=== PATIENT | male | born 1930 | race Caucasian/White ===

== ENCOUNTER 2017-06-01 07:21 | Inpatient (IN) | payer MEDICARE, OTHER ==
[~2017-06-01] VITALS: Ht 167.6 cm; Wt 59.1 kg
[2017-06-01] VITALS (11 sets, daily range): BP systolic 98–106; BP diastolic 48–57; PULSE 76–94; RESP 19–38; TEMP 100.4; Ht 167.6 cm; Wt 59.1 kg
[~2017-06-01 07:21] MED LIST: ASPI-535 PO
[2017-06-01] MEDS ORDERED: ALBUTEROL 0.5% (NEB) 2.5 MG/0.5 ML AMP INH STA (07:26)
[2017-06-01] MEDS ORDERED: ACETAMINOPHEN 500 MG TAB PO STA (07:26)
[2017-06-01] MEDS ORDERED: CEFEPIME 2GM/50 ML (PMX) 50 ML IVPB STA (07:26)
[2017-06-01] MEDS ORDERED: VANCOMYCIN 1 GM (PMX) 250 ML IVPB STA (07:26)
[2017-06-01] MEDS ORDERED: SODIUM CHLORIDE 0.9% 1L BAG IV* STA (07:26)
--- NOTE | 2017-06-01 07:52 | ERA ---
ER Documentation Chief Complaint Date/Time DATE: 06/01/17 TIME: 07:47 Chief Complaint BROUGHT IN VIA EMS FROM HOME DUE TO SHORTNESS OF BREATH AND FEVER HPI 86-year-old male who presents via EMS with shortness of breath. There is very limited history despite the use of an in person community service organization director. Family members are also at bedside and are very limited historians. They describe a possible history of heart attack, possible history of CHF. Over the last 3 days the patient has had generalized weakness, confusion and fever. He has productive cough of yellowish sputum. EMS reports the patient was significantly short of breath and hypoxic to low 80s responsive to breathing treatment. On examination the patient is alert and oriented to person but unable to answer further questions. ROS All systems reviewed and are negative except as per history of present illness. Medications Home Meds Reported Medications Pramipexole* (Pramipexole*) 0.125 Mg Tablet, 0.125 MG PO HS, TAB 06/01/17 Esomeprazole Mag Trihydrate (Nexium) 40 Mg Capsule.dr, 40 MG PO DAILY, #30 CAP 06/01/17 Clopidogrel Bisulfate (Clopidogrel) 75 Mg Tablet, 75 MG PO DAILY, #30 TAB 06/01/17 Bisoprolol Fumarate* (Bisoprolol Fumarate*) 10 Mg Tablet, 10 MG PO DAILY, TAB 06/01/17 Valsartan* (Diovan*) 320 Mg Tablet, 320 MG PO DAILY, TAB 06/01/17 Furosemide* (Lasix*) 40 Mg Tablet, 40 MG PO DAILY, TAB 06/01/17 Tamsulosin Hcl* (Flomax*) 0.4 Mg Cap.er.24h, 0.4 MG PO HS, CAP 06/01/17 Atorvastatin* (Atorvastatin*) 40 Mg Tablet, 40 MG PO QHS, #30 TAB 06/01/17 Potassium Chloride* (K-Dur*) 10 Meq Tab.prt.sr, 10 MEQ PO DAILY, TAB 06/01/17 Dutasteride* (Avodart*) 0.5 Mg Capsule, 0.5 MG PO DAILY, CAP 06/01/17 Silver Sulfadiazine* (Silvadene*) 1% - 20 Gm Cream.gm., 1 APPLIC TOP DAILY, #1 TUB 06/01/17 Rivastigmine* Patch (Exelon* Patch) 4.6 Mg/24 Hr Patch.td24, 1 PATCH TD DAILY, PATCH 06/01/17 Tiotropium [place]* (Spiriva*) 18 Mcg Cap.w.dev, 1 CAP INHALATION DAILY, #30 CAP 06/01/17 Aspirin Ec (Aspir 81) 81 Mg Tablet.dr, 81 MG PO DAILY 06/02/12 Allergies Allergies: Coded Allergies: No Known Allergy (Unverified , 06/01/17) PMhx/Soc History of Surgery: No Anesthesia Reaction: No Hx Neurological Disorder: No Hx Respiratory Disorders: No Hx Cardiac Disorders: No Hx Psychiatric Problems: No Hx Miscellaneous Medical Probl: No (PT DENIES ALL MEDICAL/SURG HX) Hx Alcohol Use: No Hx Substance Use: No Hx Tobacco Use: Yes (PACK A DAY ) Smoking Status: Current every day smoker FmHx Family History: coronary disease, No diabetes Physical Exam Vitals Vital Signs Date Time Temp Pulse Resp B/P Pulse Ox O2 Delivery O2 Flow Rate FiO2 06/01/17 09:17 100.4 107 16 100/64 98 6.0 06/01/17 07:45 6 06/01/17 07:39 102 22 98 Simple Mask 6.0 06/01/17 07:27 6.0 06/01/17 07:27 102.5 100 13 137/85 98 Physical Exam General: Elderly male with slight increased work of breathing Head: Normocephalic, atraumatic Eyes: Pupils equally reactive, EOM intact ENT: Moist mucous membranes Neck: Supple, no lymphadenopathy, no JVD Respiratory: Increased work of breathing with slight retractions, rales the bases bilaterally, decreased breath sounds to the left base, decreased aeration diffusely cardiovascular: RRR, no murmurs, rubs, or gallops Abdominal: Soft, non-tender, non-distended, no peritoneal signs : Deferred MSK: No significant pitting edema, no unilateral swelling, 4/5 strength diffusely Neurologic: Alert and oriented to person alone, this appears to be a deficit compared to baseline, moving all extremities, no focal weakness, no cerebellar signs Skin: No rash Psych: Normal mood Result Diagram: 06/01/17 0720 06/01/17 0720 Results 24 hrs Laboratory Tests Test 06/01/17 07:20 White Blood Count 10.810^3/ul Red Blood Count 5.2510^6/ul Hemoglobin 15.3g/dl Hematocrit 47.0% Mean Corpuscular Volume 89.5fl Mean Corpuscular Hemoglobin 29.1pg Mean Corpuscular Hemoglobin Concent 32.6g/dl Red Cell Distribution Width 12.4% Platelet Count 76123^3/UL Mean Platelet Volume 10.9fl Neutrophils % 86.5% Lymphocytes % 8.2% Monocytes % 4.6% Eosinophils % 0.0% Basophils % 0.2% Nucleated Red Blood Cells % 0.0/100WBC Neutrophils # 9.310^3/ul Lymphocytes # 0.910^3/ul Monocytes # 0.510^3/ul Eosinophils # 0.010^3/ul Basophils # 0.010^3/ul Nucleated Red Blood Cells # 0.010^3/ul Prothrombin Time 15.4Sec Prothrombin Time Ratio 1.2 INR International Normalized Ratio 1.21 Activated Partial Thromboplast Time 22.5Sec Sodium Level 143mmol/L Potassium Level 5.2mmol/L Chloride Level 103mmol/L Carbon Dioxide Level 31mmol/L Anion Gap 14 Blood Urea Nitrogen 46mg/dl Creatinine 2.39mg/dl Glucose Level 128mg/dl Lactic Acid Level 2.2mmol/L Calcium Level 9.4mg/dl Total Bilirubin 1.1mg/dl Direct Bilirubin 0.00mg/dl Indirect Bilirubin 1.1mg/dl Aspartate Amino Transf (AST/SGOT) 25IU/L Alanine Aminotransferase (ALT/SGPT) 19IU/L Alkaline Phosphatase 59IU/L Troponin I 0.120ng/ml B-Type Natriuretic Peptide 15374YU/ML Total Protein 7.6g/dl Albumin 3.9g/dl Globulin 3.70g/dl Albumin/Globulin Ratio 1.05 Current Medications Medications (Trade) Dose Ordered Sig/Kim Route PRN Reason Start Time Stop Time Status Last Admin Dose Admin Sodium Chloride 2170 ml 2,170 ml BOLUS OVER 2 HOURS STAT IV* 06/01/17 07:26 06/01/17 07:33 DC 06/01/17 07:35 Vancomycin HCl 250 ml @ 125 mls/hr ONCE STAT IVPB 06/01/17 07:26 06/01/17 09:25 DC 06/01/17 08:48 Cefepime HCl (Maxipime 2gm/50 ml (Pmx)) 50 ml @ 100 mls/hr ONCE STAT IVPB 06/01/17 07:26 06/01/17 07:55 DC 06/01/17 07:52 Acetaminophen (Tylenol Tab) 1,000 mg ONCE STAT PO 06/01/17 07:26 06/01/17 07:33 DC 06/01/17 07:44 Albuterol (Proventil 0.5% (Neb)) 10 mg ONCE STAT INH 06/01/17 07:26 06/01/17 07:33 DC 06/01/17 07:38 Lorazepam (Ativan) 0.5 mg ONCE ONCE IV 06/01/17 09:00 06/01/17 09:01 DC 06/01/17 09:16 Ondansetron HCl (Zofran Inj) 4 mg ER BRIDGE PRN IV NAUSEA AND/OR VOMITING 06/01/17 09:30 06/02/17 09:29 Acetaminophen (Tylenol Tab) 650 mg ER BRIDGE PRN PO MILD PAIN/FEVER 06/01/17 09:30 06/02/17 09:29 Procedures/MDM EKG, MONITORS, & DIAGNOSTIC IMAGING: EKG: I reviewed and interpreted a 12-lead EKG. Rhythm: Normal sinus rhythm Ectopy: None Intervals: No abnormalities ST segments: J-point elevations in V2 3 and 4 with Q waves consistent with old infarct T waves: No contiguous inversions Chest x-ray: Chest x-ray: I reviewed and interpreted a 1 view of the chest Mediastinum: No enlargement Cardiac silhouette:cardiomegaly Airspace: Right lower lobe pneumonia Bones: No evidence of fracture LAB INTERPRETATION: White count of 10, worsening renal function of 2.39 with baseline around 1.4, borderline hyperkalemia 5.2, lactic acid elevated at 2.2, BNP elevation of 32, 000, borderline troponin of 0.120 MEDICAL DECISION MAKING: The patient presents with 3 days of generalized malaise weakness confusion fever and cough. His clinical exam and presentation are very concerning and consistent with likely pneumonia. Patient is reported to have hospitalization within the last 90 days therefore this is consistent with likely healthcare associated pneumonia. The patient has very limited history and is a very poor historian including his family. The patient may have a history of heart failure though clinically this is not consistent with heart failure, no JVD, no lower extremity swelling. Patient's initial EKG was read by the machine as an acute TN. However, this appears to be a chronic issue. The patient is not having chest pain. Dr. Murphy , the interventionalist on-call was notified and was kind enough to come to the patient's bedside. He agrees this is not consistent with an ST elevation myocardial infarction. He recommends symptom control, treatment of pneumonia and echocardiogram. He will follow. ER COURSE: The patient was written for 30 cc/kg of normal saline however gentle resuscitation will be observed given his history of a reported history of CHF. Vancomycin and cefepime provided for healthcare associated pneumonia, given after blood cultures. Sepsis screening was initiated. Antipyretics provided. Breathing treatments provided. The patient has required some anxiolysis with 0.5 mg of Ativan. His blood pressure has trended down however mean arterial pressure is greater than 65. The patient's tachycardia is stabilizing and his fever is improving with antipyretics. The patient is a clear pneumonia on chest x-ray. He does have some evidence of mild demand ischemia with a borderline troponin. The patient' s BNP is elevated. This will require gentle fluid and persistent monitoring. The patient does require technically to 30 cc/kg saline but we will need to go slowly given the patient's likely CHF and poor cardiac contractility. An echo has been ordered and is pending. I kept the patient and/or family informed of laboratory and diagnostic imaging results throughout the emergency room course. DISPOSITION PLAN: Telemetry admission CONSULTATION: Accepting care team and consultations: I discussed the current laboratory data, diagnostic imaging and emergency care provided. Admitting team: Dr. Mcadams Admitting team indication: Insurance directed Consulting services: Interventional cardiology, Dr. Murphy Sepsis Documentation: Patient's infectious symptoms have not stabilized and the patient is at risk of rapid decompensation. The patient will be admitted for careful hydration, antibiotic therapy, and infectious source control. SEVERE SEPSIS CRITERIA: Infectious source: Healthcare associated pneumonia End organ damage indicated by: [Lactate > 2.0 mmol/L) Acute Resp Failure (sat < 92% w/o oxygen) SEPSIS MANAGEMENT Time of recognition of severe sepsis/septic shock: Upon arrival 3 HOUR BUNDLE Blood cultures x 2 before broad-spectrum antibiotics: Yes 30 ml/kg NS bolus pending completion, gentle bolus given patient's volume overload Initial lactate 2.2 Repeat lactate pending repeat SEPTIC SHOCK ASSESSMENT: No lactic acid > 4.0 No persistent hypotension (SBP < 90 or 40 mmHg drop, MAP < 65) despite 30 mL/kg IV fluid bolus VOLUME REASSESSMENT FOR SEPTIC SHOCK: Reevaluation Time: 9:52 AM Temp 100.4, heart rate 107, respiratory rate 16, blood pressure 100/64, pulse ox 98% on 2 L Heart Regular rate & rhythm Lungs rhonchi bilaterally skin Warm & dry Cap Refill Less than 2 seconds Peripheral pulses Radially present PERSISTENT HYPOTENSION TREATMENT: Comfort care No Central line Not Required Vasopressor started Not required I considered further perfusion assessment with CVP measurement, SCVO2, bedside ultrasound volume assessment, passive leg raise, trial of further fluid bolus. And proceeded with 30 ml/kg fluid bolus of NSS, broad spectrum antbiotics, and admission. CRITICAL CARE Critical care time 35 minutes Emergent fluid management while maintaining close respiratory support. Provision of immediate and broad-spectrum antibiotic therapy. Simultaneous assessment for possible sources in order to direct targeted therapy. Consideration for invasive and chemical support to prevent cardiopulmonary collapse. Critical care time is independent of procedures performed. Departure Diagnosis: Primary Impression: Healthcare-associated pneumonia Additional Impressions: Severe sepsis Acute renal insufficiency History of CHF (congestive heart failure) Encephalopathy acute Condition: Stable RAVINDRA BOYER MD Jun 01, 2017 07:52
[2017-06-01] MEDS ORDERED: TIOT18CA INHALATION (07:57)
[2017-06-01] MEDS ORDERED: EXEL46P TD (07:58)
[2017-06-01] MEDS ORDERED: SILV20CR14 TOP (07:58)
[2017-06-01] MEDS ORDERED: DUTA0.5C PO (07:59)
[2017-06-01] MEDS ORDERED: TAMS-14 PO (08:00)
[2017-06-01] MEDS ORDERED: POTA10TA37 PO (08:00)
[2017-06-01] MEDS ORDERED: ATOR40TA68 PO (08:00)
[2017-06-01] MEDS ORDERED: BISO10TA16 PO (08:01)
[2017-06-01] MEDS ORDERED: FURO-109 PO (08:01)
[2017-06-01] MEDS ORDERED: VALS320T11 PO (08:01)
[2017-06-01] MEDS ORDERED: CLOP75TA27 PO (08:02)
[2017-06-01] MEDS ORDERED: PRAM0.12 PO (08:02)
[2017-06-01] MEDS ORDERED: ESOM40CA PO (08:02)
[2017-06-01 08:05] LABS: BASOPHILS % 0.2 % (0.0-2.0); HEMOGLOBIN 15.3 g/dl (14.0-18.0); LYMPHOCYTES # 0.9 10^3/ul (0.8-2.9); LYMPHOCYTES % 8.2 % (15.0-51.0); MEAN CORPUSCULAR HEMOGLOBIN 29.1 pg (29.0-33.0); MEAN CORPUSCULAR HGB CONC 32.6 g/dl (32.0-37.0); MEAN CORPUSCULAR VOLUME 89.5 fl (82.0-101.0); MEAN PLATELET VOLUME 10.9 fl (7.4-10.4); MONOCYTE # 0.5 10^3/ul (0.3-0.9); MONOCYTES % 4.6 % (0.0-11.0); NEUTROPHIL # 9.3 10^3/ul (1.6-7.5); NEUTROPHILS % 86.5 % (39.0-77.0); PLATELET COUNT 225 10^3/UL (140-415); POSITIVE DIFF @See below; RED BLOOD COUNT 5.25 10^6/ul (4.70-6.10); RED CELL DISTRIBUTION WIDTH 12.4 % (11.5-14.5); WHITE BLOOD COUNT 10.8 10^3/ul (4.8-10.8)
--- NOTE | 2017-06-01 08:08 | RADRPT ---
PROCEDURE: XR Chest. CLINICAL INDICATION: Sepsis . Dyspnea TECHNIQUE: Single frontal chest x-ray. COMPARISON: None. FINDINGS: Focal right lower lung consolidation or infiltrate is present. The left lung is clear. . Cardiomegal y with calcific atherosclerosis of the aorta is present.. Degenerative disk changes of the spine ar e present. . There is no evidence of pneumothorax.. IMPRESSION: Focal right lower lung consolidation or infiltrate. Cardiomegaly with calcific atherosclerosis of the aorta.. RPTAT: GG .Maximo Tam MD, MD Date Time Electronically viewed and signed by .Maximo Tam MD, MD on 06/01/2017 08:08 .L/
[2017-06-01 08:13] LABS: INR 1.21; PARTIAL THROMBOPLASTIN TIME 22.5 Sec (25.0-35.0); PROTIME 15.4 Sec (12.2-14.2); PT RATIO 1.2
[2017-06-01 08:16] LABS: ALBUMIN 3.9 g/dl (3.3-4.9); ALBUMIN/GLOBULIN RATIO 1.05; BILIRUBIN,INDIRECT 1.1 mg/dl (0-1.1); BILIRUBIN,TOTAL 1.1 mg/dl (0.2-1.3); CALCIUM 9.4 mg/dl (8.4-10.2); CREATININE 2.39 mg/dl (0.61-1.24); POTASSIUM 5.2 mmol/L (3.5-5.1); TOTAL PROTEIN 7.6 g/dl (6.1-8.1)
[2017-06-01 08:27] LABS: TROPONIN-I 0.12 ng/ml (0.00-0.12)
[2017-06-01] MEDS ORDERED: LORAZEPAM 2 MG INJ IV ONE (09:00)
--- NOTE | 2017-06-01 09:11 | CONS ---
Date/Time of Note Date/Time of Note DATE: 06/01/17 TIME: 09:00 Assessment/Plan Assessment/Plan Chief Complaint/Hosp Course Assessment: 1. abnormal ECG: but c/w old but not acute STEMI 2. pneumonia and possible sepsis 3. most likely cardiomyopathy 4. r/o valvular heart disease . 5. HTN 6. Renal failure; probably MAGDA 7. Dyslipidemia 8.hx CAD, [place] 9. encephalopathy 10. smoker 11. hx etoh use Recommendations: CONT ASA/ Plavix abx as per IM hold off on ARB/ YUMIKO now due to MAGDA. CONSIDER renal consultations as well diuresis prn only. at this time appears dehydrated but need to be careful with IV fluid due to most likely cardiomyopathy based on ECG Echo has been ordered. will review R/O IN. [employer]. tele monitoring Emergent cardiac catheterization at this point is not beneficial and most likely is contraindicated. We will hold off for now. Thank you for his referral. I will continue to follow along with you. [facility] Problems: Consultation Date/Type/Reason Admit Date/Time Date of Consultation: Jun 01, 2017 Type of Consultation: emergent interventional cardio Reason for Consultation R/O STEMI Referring Provider: RAVINDRA BOYER MD Hx of Present Illness CC: fever, cough, weakness, sob. HPI: Thank you for his referral. History was obtained from the patient's son and grandson on discussion with Dr. Reyez discussion with the staff. Also partially from the patient who is a poor historian. This is a pleasant 86-year-old gentleman who has been feeling weak over the past few days. According to the family patient has been getting weaker over the past few days has had fever up to 102 few days ago. He also has been coughing and has been having increasing shortness of breath. His mentation has declined as well has not been talking much lately. He denies any chest pain or pressure to me. He denies any palpitation to me. The EKG done in the emergency room was read as STEMI and I was asked to evaluate to see if this is a true STEMI or not. I immediately evaluated the patient and reviewed the EKG. In my review it appears that the EKG shows old anterior and inferior infarct but no acute ST elevation myocardial infarction. It was felt that the patient would not benefit from emergent cardiac catheterization at this point and his clinical presentation appears to be related to mostly pneumonia and infection. Patient however needs to be admitted and ruled out for myocardial infarction. Patient and family are very poor historian. No real good old record was available for review. pt has not been eating or taking any meds x 2 days. Allergies: No known drug allergies PMH: Probably coronary artery disease and IN a few years ago details not clear Most likely congestive heart failure based on the medication list Hypertension Dyslipidemia Smoker History of alcohol use family history: no early CAD SOCIAL HISTORY: + SMOKING + Drinking until 2 weeks ago. MEDS: reviewed as per medical reconciliation sheath ROS: as above only the best I could obtain. Social History Smoking Status: Current every day smoker Exam/Review of Systems Vital Signs Vitals Vital Signs Date Time Temp Pulse Resp B/P Pulse Ox O2 Delivery O2 Flow Rate FiO2 06/01/17 07:45 6 06/01/17 07:39 102 22 98 Simple Mask 06/01/17 07:27 102.5 137/85 Exam General: thin man in mild resp distress HEENT: NC/AT. pupils are equal. round. NECK: NO JVD. no stridor. CV: RRR. systolic murmur grade III./; no gallop or rubs. PULM: +r rhonchi right side. GI: SOFT, NT, ND, no rebound or guarding Extremity: no significant LE edema. no clubbing. neuro: awake and alert,. moving all extremities. Psych: calm and pleasant rectal: deferred : normal male ECG reviewed personally NSR inf infarct. ant infarct age undetermined. CXR reviewed. focal infiltrate Results Result Diagram: 06/01/1771906/01/17719 Results 24 hrs Laboratory Tests Test 06/01/17 07:20 White Blood Count 10.8 Red Blood Count 5.25 Hemoglobin 15.3 Hematocrit 47.0 Mean Corpuscular Volume 89.5 Mean Corpuscular Hemoglobin 29.1 Mean Corpuscular Hemoglobin Concent 32.6 Red Cell Distribution Width 12.4 Platelet Count 225 Mean Platelet Volume 10.9 H Neutrophils % 86.5 H Lymphocytes % 8.2 L Monocytes % 4.6 Eosinophils % 0.0 Basophils % 0.2 Nucleated Red Blood Cells % 0.0 Neutrophils # 9.3 H Lymphocytes # 0.9 Monocytes # 0.5 Eosinophils # 0.0 Basophils # 0.0 Nucleated Red Blood Cells # 0.0 Prothrombin Time 15.4 H Prothrombin Time Ratio 1.2 INR International Normalized Ratio 1.21 Activated Partial Thromboplast Time 22.5 L Sodium Level 143 Potassium Level 5.2 H Chloride Level 103 Carbon Dioxide Level 31 Anion Gap 14 Blood Urea Nitrogen 46 H Creatinine 2.39 H Glucose Level 128 Lactic Acid Level 2.2 *H Calcium Level 9.4 Total Bilirubin 1.1 Direct Bilirubin 0.00 Indirect Bilirubin 1.1 Aspartate Amino Transf (AST/SGOT) 25 Alanine Aminotransferase (ALT/SGPT) 19 Alkaline Phosphatase 59 Troponin I 0.120 B-Type Natriuretic Peptide 32715 H Total Protein 7.6 Albumin 3.9 Globulin 3.70 H Albumin/Globulin Ratio 1.05 Medications Medications Current Medications Lorazepam (Ativan) 0.5 mg ONCE ONCE IV ; Start 06/01/17 at 09:00; Stop at 09:01 JUAN HOLMAN MD Jun 01, 2017 09:11
[2017-06-01] MEDS ORDERED: ACETAMINOPHEN 325 MG TAB PO PRN (09:30)
[2017-06-01] MEDS ORDERED: ONDANSETRON 4 MG INJ IV PRN ×2 (09:30→10:30)
[2017-06-01 10:08] LABS: Allen Test ACCEPTAB; Arterial Base Excess 0.6 mmol/L (-3.0-3); Arterial COHb 0.9 % (0.0-3.0); Arterial HCO3 27.7 mmol/L (22.0-26.0); Arterial MetHb 0.3 % (0.0-1.5); MODE NASAL CANNULA
[2017-06-01] MEDS ORDERED: hydrALAzine 20 MG INJ IV PRN (10:30)
[2017-06-01] MEDS ORDERED: DOCUSATE SODIUM 100 MG CAP PO PRN (10:30)
[2017-06-01] MEDS ORDERED: NA PHOSPHATE/BIPHOS 133 ML ENEMA PR PRN (10:30)
[2017-06-01] MEDS ORDERED: NACL 0.9% 3 ML SYG IV SCH (10:30)
[2017-06-01] MEDS ORDERED: ALBUTEROL/IPRATROPIUM (NEB) 3 ML AMP HHN PRN (10:30)
[2017-06-01] MEDS ORDERED: VANCOMYCIN IV PER PHARMACY XX SCH (10:30)
[2017-06-01] MEDS ORDERED: NITROGLYCERIN (SL) 0.4 MG TAB SL PRN (10:30)
[2017-06-01] MEDS ORDERED: HYDROCODONE/APAP (5/325) TAB PO PRN (10:30)
[2017-06-01] MEDS ORDERED: MAGNESIUM HYDROXIDE 30ML CUP PO PRN (10:30)
[2017-06-01] MEDS ORDERED: PIPER-TAZO 3.375 GM IV (PMX) 100 ML IVPB SCH (12:00)
[2017-06-01 12:28] LABS: INR 1.24; PARTIAL THROMBOPLASTIN TIME 25.5 Sec (25.0-35.0); PROTIME 15.7 Sec (12.2-14.2); PT RATIO 1.2
[2017-06-01] MEDS: LORAZEPAM 2 MG INJ IV PRN (14:14)
[2017-06-01] MEDS: ACETAMINOPHEN 325 MG TAB PO PRN ×2 (14:16→22:06)
--- NOTE | 2017-06-01 15:52 | RADRPT ---
PROCEDURE: Renal US. CLINICAL INDICATION: Renal dysfunction. TECHNIQUE: Multiple sonographic images of the kidneys and urinary bladder were obtained. The imag es were reviewed on a PACS workstation. COMPARISON: No prior studies are available for comparison. FINDINGS: The right kidney measures 10.4 cm. The left kidney measures 10.3 cm. There is no solid renal mass. There is a benign cyst in the mid left kidney measuring 1.1 cm and a b enign cyst in the lower left kidney measuring 1.3 cm. There is no hydronephrosis. There is no renal calculus. Renal parenchymal thickness is normal bilaterally. Echogenicity is normal bilaterally. The perirenal regions are normal with no fluid collection or mass. The urinary bladder is unremarkable. IMPRESSION: 1. Benign left renal cysts. 2. Otherwise normal renal ultrasound. RPTAT: QQ .Scott Alvarado MD, MD Date Time Electronically viewed and signed by .Scott Alvarado MD, MD on 06/01/2017 15:51 .R/
--- NOTE | 2017-06-01 16:23 | CONS ---
Date/Time of Note Date/Time of Note DATE: 06/01/17 TIME: 16:18 Assessment/Plan Assessment/Plan Additional Assessment/Plan Chest x-ray was reviewed from today which is showing bilateral pneumonia more pronounced right lower lobe. Next ABG showing hypercapnia with hypoxemia. Assessment and recommendations; 1. Patient admitted with bilateral pneumonia with hypercapnia and hypoxemia. 2. Mental obtundation likely from sedation. 2. Likely underlying COPD. 4. History of BPH. Continue current antibiotic regimen. Will obtain follow-up chest x-ray in 24 hours. Start BiPAP. I did have a detailed discussion the patient's son at bedside and answered all his questions. Consultation Date/Type/Reason Admit Date/Time Date of Consultation: Jun 01, 2017 Type of Consultation: Pulmonary Reason for Consultation Consultation requested for evaluation of pneumonia. History of presenting any; patient is an 86-year-old white male who was admitted to the hospital with complaints of not feeling well. With cough and congestion going on for the last few days. Upon evaluation a chest x-ray was done which is showing bilateral pneumonia. Patient has been started on appropriate antibiotic regimen. The patient was given a mild sedation and by the time I saw him the patient was unresponsive. History was obtained from medical records as well as from patient's son who was present in the room. According to the family the patient was doing fine until 2 days ago when the symptoms started gradually. The patient does have normally adequate health status. Past medical history; 1. Patient with history of COPD. 2. BPH. 3. He of pneumonia . 4. No history of any known coronary artery disease or diabetes. Medications; reviewed. Allergies; none. Social history; patient smokes about pack a day. No swelling or drug abuse. Family history; patient is a . Has 4 children. Occupation history; patient used to be a food mobile driver. Review of systems; unable to be obtained. General exam; elderly male, currently in no distress. Non-arousable. Social History Smoking Status: Current every day smoker Exam/Review of Systems Vital Signs Vitals Vital Signs Date Time Temp Pulse Resp B/P Pulse Ox O2 Delivery O2 Flow Rate FiO2 06/01/17 13:22 84 06/01/17 11:42 98.8 38 98/48 95 06/01/17 11:22 Nasal Cannula 2.0 Exam HEENT exam; supple neck, no JVD. No lymphadenopathy. Midline trachea. No thyromegaly. Pupils are small bilaterally. Chest exam; diminished breath sounds bilaterally. S1-S2 audible, no murmurs. Regular rhythm. Abdomen exam; soft, distended. No organomegaly. Bowel sounds audible. Extremity exam; no peripheral. No clubbing. FISH LIVER SORTER exam; patient currently is not responsive. Results Result Diagram: 06/01/17 0720 06/01/17 0720 Results 24 hrs Laboratory Tests Test 06/01/17 07:20 06/01/17 09:55 06/01/17 09:56 06/01/17 11:31 White Blood Count 10.8 Red Blood Count 5.25 Hemoglobin 15.3 Hematocrit 47.0 Mean Corpuscular Volume 89.5 Mean Corpuscular Hemoglobin 29.1 Mean Corpuscular Hemoglobin Concent 32.6 Red Cell Distribution Width 12.4 Platelet Count 225 Mean Platelet Volume 10.9 H Neutrophils % 86.5 H Lymphocytes % 8.2 L Monocytes % 4.6 Eosinophils % 0.0 Basophils % 0.2 Nucleated Red Blood Cells % 0.0 Neutrophils # 9.3 H Lymphocytes # 0.9 Monocytes # 0.5 Eosinophils # 0.0 Basophils # 0.0 Nucleated Red Blood Cells # 0.0 Prothrombin Time 15.4 H 15.7 H Prothrombin Time Ratio 1.2 1.2 INR International Normalized Ratio 1.21 1.24 Activated Partial Thromboplast Time 22.5 L 25.5 Sodium Level 143 Potassium Level 5.2 H Chloride Level 103 Carbon Dioxide Level 31 Anion Gap 14 Blood Urea Nitrogen 46 H Creatinine 2.39 H Glucose Level 128 Lactic Acid Level 2.2 *H 1.7 1.7 Calcium Level 9.4 Total Bilirubin 1.1 Direct Bilirubin 0.00 Indirect Bilirubin 1.1 Aspartate Amino Transf (AST/SGOT) 25 Alanine Aminotransferase (ALT/SGPT) 19 Alkaline Phosphatase 59 Troponin I 0.120 B-Type Natriuretic Peptide 45946 H Total Protein 7.6 Albumin 3.9 Globulin 3.70 H Albumin/Globulin Ratio 1.05 Free Thyroxine 1.78 Blood Gas Specimen Source Blood arterial Arterial Blood Date Drawn 06/01/2017 9:59:51 AM Arterial Blood pH (Temp corrected) 7.327 L Arterial Blood pCO2 (Temp correct) 54.2 H Arterial Blood pO2 (Temp corrected) 59.7 L Arterial Blood HCO3 27.7 H Arterial Blood Base Excess 0.6 Arterial Blood Oxygen Saturation 90.1 L Rishabh Test ACCEPTAB Arterial Blood Gas Puncture Site Right Radial Arterial Blood Carboxyhemoglobin 0.9 Arterial Blood Methemoglobin 0.3 Blood Gas A-a O2 Differential 76.0 H Oxyhemoglobin Percent 89.0 L Total Hemoglobin 15.0 Blood Gas Temperature 37.0 Blood Gas Modality NASAL CANNULA FiO2 28.0 Blood Gas Notified Whom M.D. Blood Gas Notified Time 06/01/2017 10:08:34 AM Medications Medications Current Medications Ondansetron HCl (Zofran Inj) 4 mg Q6H PRN IV NAUSEA AND/OR VOMITING; Start at 10:30 Acetaminophen (Tylenol Tab) 650 mg Q6H PRN PO PAIN LEVEL 1-3 OR FEVER Last administered on 06/01/17 14:16; Admin Dose 650 MG; Start 06/01/17 at 10:30 Acetaminophen/ Hydrocodone Bitart (Spencer (5/325)) 1 tab Q6H PRN PO MODERATE PAIN LEVEL 4-6 Last administered on 06/01/17 11:44; Admin Dose 1 TAB; Start at 10:30 Morphine Sulfate (morphine) 2 mg Q4H PRN IV SEVERE PAIN LEVEL 7-10; Start 06/01 at 10:30 Docusate Sodium (Colace) 100 mg Q12H PRN PO CONSTIPATION; Start 06/01/17 at 10: 30 Magnesium Hydroxide (Milk Of Mag) 30 ml DAILY PRN PO CONSTIPATION; Start at 10:30 Sodium Biphosphate/ Sodium Phosphate (Fleet Enema) 133 ml DAILY PRN [place] CONSTIPATION; Start 06/01/17 at 10:30 Lorazepam (Ativan) 0.5 mg Q6H PRN IV ANXIETY Last administered on 06/01/17 14: 14; Admin Dose 0.5 MG; Start 06/01/17 at 10:30 Vancomycin HCl (Vanco Iv Per Pharmacy) VANCOMYCIN PER PHARMACY NOTE XX ; Start 06/01/17 at 10:30 Hydralazine HCl (Apresoline) 10 mg Q6H PRN IV ELEVATED BLOOD PRESSURE; Start at 10:30 Nitroglycerin (Nitroglycerin (Sl Tab) 0.4 Mg) 1 tab Q5M PRN SL ANGINA; Start 9 /15/17 at 10:30 Aspirin (Halfprin) 81 mg DAILY PO ; Start 06/02/17 at 09:00 Atorvastatin Calcium (Lipitor) 40 mg QHS PO ; Start 06/01/17 at 21:00 Bisoprolol Fumarate (Zebeta) 10 mg DAILY PO ; Start 06/02/17 at 09:00 Clopidogrel Bisulfate (plaVIX) 75 mg DAILY PO ; Start 06/02/17 at 09:00 Dutasteride (Avodart) 0.5 mg DAILY PO ; Start 06/02/17 at 09:00 Pramipexole (Mirapex) 0.125 mg HS PO ; Start 06/01/17 at 21:00 Rivastigmine Tartrate (Exelon 4.6 Mg/ 24 Hr Patch) 1 patch DAILY TRANSDERM ; Start 06/02/17 at 09:00 Silver Sulfadiazine (Thermazene 1% 25 Gm) 1 applic DAILY TOP ; Start 06/02/17 at 09:00 Tamsulosin HCl (Flomax) 0.4 mg HS PO ; Start 06/01/17 at 21:00 Pantoprazole 40 mg 40 mg DAILY@06 PO ; Start 06/02/17 at 06:00 Piperacillin Sod/ Tazobactam Sod 50 ml @ 100 mls/hr Q6 IVPB ; Start 06/01/17 at 18:00 Vancomycin HCl/ Sodium Chloride (Vancocin/NS) 150 ml @ 75 mls/hr Q48H IVPB ; Start 06/03/17 at 09:00 FRANSICO KAM Jun 01, 2017 16:22
[2017-06-01 16:51] LABS: CALCIUM 8.8 mg/dl (8.4-10.2); CREATININE 2.58 mg/dl (0.61-1.24); POTASSIUM 5.1 mmol/L (3.5-5.1)
[2017-06-01] MEDS: PIPER-TAZO 2.25 GM (PMX) 50 ML IVPB SCH (17:59)
--- NOTE | 2017-06-01 19:21 | RADRPT ---
Echocardiogram Report Patient Name: JUAN CALIXTO Gender: Male Date: 1930 Study Date: 01-Jun-2017 Photocopying Equipment Repairer: Abhinav [facility] Location: [facility] Ref. Physician: RAVINDRA BOYER Quality: Technically Difficult Study Procedures: Transthoracic echocardiogram with complete 2D, M-Mode, and doppler examination. Indications: Shortness of breath. 2D/M Mode Doppler Measurement Value Normal Ranges Measurement Value Normal Ranges LVIDd 2D 5.2 3.5 - 5.6 cm ANI Vmax 3.2 cm2 LVIDs 2D 4.4 2.1 - 4.1 cm ANI VTI 3.2 cm2 LVPWd 2D 1.5 0.6 - 1.1 cm AV Peak Landon 1.1 m/sec IVSd 2D 1.5 0.6 - 1.1 cm AV Peak PG 5.0 mmHg AoR Diam 2D 2.9 2.0 - 3.7 cm LVOT Peak Landon 1.0 m/sec EDV 2D 129.4 cm3 LVOT Peak PG 4.0 mmHg ESV 2D 83.0 cm3 MV E Peak Landon 1.5 m/sec LVOT Diam 2.1 cm MV A Peak Landon 1.3 m/sec MV E/A 1.1 MV Decel Time 160 msec MV Decel Taney 9 MV E/A 1.1 TR Peak Landon 2.8 m/sec TR Peak PG 30.4 mmHg RVSP 40.0 mmHg Findings Left Ventricle: Normal left ventricular cavity size. Moderate concentric left ventricular hypertrophy. Severe left ventricular systolic dysfunction. Ejection fraction is visually estimated at 30 %. Abnormal Diastolic Function. These segments of the LV are hypokinetic basal anterior segment, mid anterior segment, apical anterior segment, anterolateral mid segment, apical lateral segment, inferior apex segment, inferior mid segment, inferoseptum mid segment, anteroseptum mid segment, apex and apical septum. Right Ventricle: Normal right ventricular size. Normal right ventricular systolic function. Left Atrium: There is mild enlargement of left atrium. Right Atrium: The right atrium is normal in size. Mitral Valve: Mitral valve is not well visualized. Mitral valve leaflets appear mildly thickened. Severe mitral annular calcification. Trace mitral regurgitation. Aortic Valve: Aortic valve not well visualized. Aortic cusps appear mildly calcified. Trace to mild aortic valve regurgitation. Tricuspid Valve: Normal appearance of the tricuspid valve. Estimated peak PA systolic pressure 40 mmHg. There is mild tricuspid regurgitation. Pulmonic Valve: Pulmonic valve not well visualized. There is trace pulmonic regurgitation. Pericardium: Normal pericardium with no significant pericardial effusion. Aorta: Normal aortic root. IVC: Normal size and normal respiratory collapse consistent with normal right atrial pressure. Conclusions 1.Normal left ventricular cavity size. Moderate concentric left ventricular hypertrophy. Severe left ventricular systolic dysfunction. Ejection fraction is visually estimated at 30 %. Abnormal Diastolic Function. These segments of the LV are hypokinetic basal anterior segment, mid anterior segment, apical anterior segment. , anterolateral mid segment. , apical lateral segment. , inferior apex segment, inferior mid segment, inferoseptum mid segment. , anteroseptum mid segment, apex. and apical septum. 2.There is mild enlargement of left atrium. 3.Mitral valve is not well visualized. Mitral valve leaflets appear mildly thickened. Severe mitral annular calcification. Trace mitral regurgitation. 4.Aortic valve not well visualized. Aortic cusps appear mildly calcified. Trace to mild aortic valve regurgitation. 5.Normal appearance of the tricuspid valve. Estimated peak PA systolic pressure 40 mmHg. There is mild tricuspid regurgitation. 6.Normal size and normal respiratory collapse consistent with normal right atrial pressure. Electronically Signed By: Vik Monterroso 01-Jun-2017 19:19:45 -0700 Patient Name: JUAN CALIXTO Study Date: 01-Jun-2017 [id number]
--- NOTE | 2017-06-01 19:43 | CONS ---
DATE OF ADMISSION: 06/01/2017 DATE OF CONSULTATION: 06/01/[address] Mcadams, Thank you very much for allowing me to evaluate this 86-year-old male admitted to the hospital with shortness of breath and impaired renal function. HISTORICAL EVENTS: As best as I can glean, it has been over the last 3 days the patient has had increasing weakness, fever, and some confusion, and a cough productive of yellow mucus. Because of the latter, he was ultimately evaluated at [facility] and admitted to the hospital. He presently cannot give me any additional historical events. PAST MEDICAL HISTORY: 1. Includes history of CHF and coronary disease as well as history of valvular heart disease. 2. Hypertension. 3. History of prostatism. SOCIAL HISTORY: He does smoke. MEDICATION: On admission includes: 1. Pramipexole 0.125 mg at night. 2. Nexium 40 mg at night. 3. Plavix 75 mg per day. 4. Bisoprolol 10 mg per day. 5. Valsartan 320 mg per day. 6. Lasix 40 mg per day. 7. Flomax 0.4 mg per day. 8. Atorvastatin 40 mg per day. 9. K-Dur 10 mEq per day. 10. Avodart 0.5 mg per day. 11. Exelon patch 4.6 mg per day. 12. Spiriva. 13. Baby aspirin. FAMILY HISTORY: To be reviewed later. PHYSICAL EXAMINATION: VITAL SIGNS: Blood pressure 98/48, temperature 98.8, respirations 28, pulse 100. NECK: Revealed no jugular venous distention. LUNGS: Reduced breath sounds. HEART: Rhythm regular, 1/6 systolic murmur. No 3rd or 4th sound. ABDOMEN: Nontender. Liver and spleen are not palpable. No mass or tenderness were noted. EXTREMITIES: No edema. NEUROLOGIC: No focal weakness. He did not respond to simple questions. LABORATORY STUDIES: On admission, creatinine was 2.39, potassium 5.2. Liver tests were normal. BNP was markedly elevated. Thyroid function was normal. Hematocrit 47, white count 10,800. Pro time, PTT were normal. IMAGING STUDIES: Included a chest x-ray that revealed a focal right lung consolidation and/or infiltrate. IMPRESSION: Renal insufficiency. 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 Obstructive component clearly needs to be excluded, given his age. Bed rest, and a Goodrich catheter will be will be placed at least for a short while to assure the latter is not present. Renal ultrasound has been obtained along with a urinary sodium to see if there is a significant prerenal component. Protein/creatinine ratio will be obtained to exclude occult glomerulopathy. His ARB has been discontinued and fluids administered, and will follow with you. His suspected pneumonia is being addressed with broad-spectrum antibiotics. Thanks so much. Dictated By: Ritchie Baltazar MD /radha/edmond /Document#: [id number] CC: Luis Mcadams MD;*[facility]*
[2017-06-01] MEDS: ATORVASTATIN 40 MG TAB PO SCH (21:57)
[2017-06-01] MEDS: PRAMIPEXOLE 0.125 MG TAB PO SCH (21:57)
[2017-06-01] MEDS: traMADol 50 MG TAB PO PRN (21:57)
[2017-06-01] MEDS: TAMSULOSIN (SR) 0.4 MG CAP PO SCH (21:57)
[2017-06-02] VITALS (16 sets, daily range): BP systolic 91–126; BP diastolic 50–79; PULSE 60–172; RESP 19–25
[2017-06-02] MEDS: PIPER-TAZO 2.25 GM (PMX) 50 ML IVPB SCH ×5 (00:47→23:38)
[2017-06-02] MEDS: PANTOPRAZOLE (EC) 40 MG TAB PO SCH (05:40)
[2017-06-02 07:39] LABS: BASOPHILS % 0.2 % (0.0-2.0); HEMATOCRIT 44.4 % (42.0-52.0); HEMOGLOBIN 13.6 g/dl (14.0-18.0); LYMPHOCYTES # 1.2 10^3/ul (0.8-2.9); LYMPHOCYTES % 11.8 % (15.0-51.0); MEAN CORPUSCULAR HEMOGLOBIN 28.2 pg (29.0-33.0); MEAN CORPUSCULAR HGB CONC 30.6 g/dl (32.0-37.0); MEAN CORPUSCULAR VOLUME 91.9 fl (82.0-101.0); MEAN PLATELET VOLUME 11.4 fl (7.4-10.4); MONOCYTE # 0.7 10^3/ul (0.3-0.9); MONOCYTES % 7.6 % (0.0-11.0); NEUTROPHIL # 7.8 10^3/ul (1.6-7.5); NEUTROPHILS % 79.8 % (39.0-77.0); PLATELET COUNT 195 10^3/UL (140-415); POSITIVE DIFF @See below; RED BLOOD COUNT 4.83 10^6/ul (4.70-6.10); WHITE BLOOD COUNT 9.8 10^3/ul (4.8-10.8)
[2017-06-02 07:54] LABS: CHOL/HDL RATIO 6.3 RATIO
[2017-06-02 08:25] LABS: THYROID STIMULATING HORMONE 0.161 MIU/L (0.465-4.680)
[2017-06-02 08:33] LABS: CALCIUM 8.6 mg/dl (8.4-10.2); CREATININE 2.46 mg/dl (0.61-1.24); MAGNESIUM 2.2 mg/dl (1.7-2.5); POTASSIUM 5.2 mmol/L (3.5-5.1)
[2017-06-02] MEDS: DUTASTERIDE 0.5 MG CAP PO SCH (08:58)
[2017-06-02] MEDS: ASPIRIN (EC) 81 MG TAB PO SCH (08:59)
[2017-06-02] MEDS: RIVASTIGMINE 4.6MG/24H PATCH TRANSDERM SCH (08:59)
[2017-06-02] MEDS: ACETAMINOPHEN 325 MG TAB PO PRN (08:59)
[2017-06-02] MEDS: CLOPIDOGREL 75 MG TAB PO SCH (08:59)
[2017-06-02] MEDS: SILVER SULFADIAZINE 1% 25 GM CR TOP SCH (09:00)
[2017-06-02] MEDS: BISOPROLOL 5 MG TAB PO SCH (09:00)
--- NOTE | 2017-06-02 09:31 | CONS ---
Date/Time of Note Date/Time of Note DATE: 06/02/17 TIME: 09:25 Assessment/Plan Assessment/Plan Problems: (1) Acute renal insufficiency Status: Acute Comment: ?baseline?... Cr currently stable....UOP not monitored as pt incont, and lopez to be placed by urology...(+) elevated PVR of at least 500cc noted, so clearly an obstructive component...RICK w No hydro noted, however (2) Encephalopathy acute Status: Acute Comment: w PNA..?again baseline? (3) Healthcare-associated pneumonia Status: Acute Comment: on O2 and abx (4) History of CHF (congestive heart failure) Status: Acute Comment: echo w LVEF 30 % w hypokinesis... contributing to ARF as well (5) Hyperkalemia Comment: mild... should reverse w Lopez placement Consultation Date/Type/Reason Admit Date/Time Jun 01, 2017 at 09:07 Initial Consult Date 06/01/17 Type of Consultation: renal Referring Provider: RAVINDRA BOYER MD 24 HR Interval Summary Free Text/Dictation min responsive... groans to stimulation only Exam/Review of Systems Vital Signs Vitals Vital Signs Date Time Temp Pulse Resp B/P Pulse Ox O2 Delivery O2 Flow Rate FiO2 06/02/17 08:36 101.3 95 23 126/79 98 06/02/17 05:30 40 06/01/17 21:10 BIPAP 06/01/17 11:22 2.0 Intake and Output 06/01/17 06/01/17 06/02/17 15:00 23:00 07:00 Intake Total 50 ml 50 ml Balance 50 ml 50 ml Exam Constitutional: non-verbal Respiratory: clear to auscultation Cardiovascular: systolic murmur (2/6 ashley) Gastrointestinal: soft Extremities: edema (absent) Results Result Diagram: 06/02/17 0706/02/17 07 Results 24 hrs Laboratory Tests Test 06/01/17 09:55 06/01/17 09:56 06/01/17 11:31 06/01/17 16:09 Blood Gas Specimen Source Blood arterial Arterial Blood Date Drawn 06/01/2017 9:59:51 AM Arterial Blood pH (Temp corrected) 7.327 L Arterial Blood pCO2 (Temp correct) 54.2 H Arterial Blood pO2 (Temp corrected) 59.7 L Arterial Blood HCO3 27.7 H Arterial Blood Base Excess 0.6 Arterial Blood Oxygen Saturation 90.1 L Rishabh Test ACCEPTAB Arterial Blood Gas Puncture Site Right Radial Arterial Blood Carboxyhemoglobin 0.9 Arterial Blood Methemoglobin 0.3 Blood Gas A-a O2 Differential 76.0 H Oxyhemoglobin Percent 89.0 L Total Hemoglobin 15.0 Blood Gas Temperature 37.0 Blood Gas Modality NASAL CANNULA FiO2 28.0 Blood Gas Notified Whom M.DTamra Blood Gas Notified Time 06/01/2017 10:08:34 AM Lactic Acid Level 1.7 1.7 Prothrombin Time 15.7 H Prothrombin Time Ratio 1.2 INR International Normalized Ratio 1.24 Activated Partial Thromboplast Time 25.5 Sodium Level 145 H Potassium Level 5.1 Chloride Level 108 Carbon Dioxide Level 29 Anion Gap 13 Blood Urea Nitrogen 48 H Creatinine 2.58 H Glucose Level 123 Calcium Level 8.8 Test 06/01/17 18:45 06/02/17 00:54 06/02/17 07:01 Lactic Acid Level 0.9 1.0 1.0 White Blood Count 9.8 Red Blood Count 4.83 Hemoglobin 13.6 L Hematocrit 44.4 Mean Corpuscular Volume 91.9 Mean Corpuscular Hemoglobin 28.2 L Mean Corpuscular Hemoglobin Concent 30.6 L Red Cell Distribution Width 13.0 Platelet Count 195 Mean Platelet Volume 11.4 H Neutrophils % 79.8 H Lymphocytes % 11.8 L Monocytes % 7.6 Eosinophils % 0.0 Basophils % 0.2 Nucleated Red Blood Cells % 0.0 Neutrophils # 7.8 H Lymphocytes # 1.2 Monocytes # 0.7 Eosinophils # 0.0 Basophils # 0.0 Nucleated Red Blood Cells # 0.0 Sodium Level 146 H Potassium Level 5.2 H Chloride Level 109 Carbon Dioxide Level 30 Anion Gap 12 Blood Urea Nitrogen 52 H Creatinine 2.46 H Glucose Level 104 Calcium Level 8.6 Phosphorus Level 5.0 H Magnesium Level 2.2 Triglycerides Level 135 Cholesterol Level 127 LDL Cholesterol, Calculated 80 HDL Cholesterol 20 L Cholesterol/HDL Ratio 6.3 Thyroid Stimulating Hormone (TSH) 0.161 L Medications Medications Current Medications Ondansetron HCl (Zofran Inj) 4 mg Q6H PRN IV NAUSEA AND/OR VOMITING; Start at 10:30 Acetaminophen (Tylenol Tab) 650 mg Q6H PRN PO PAIN LEVEL 1-3 OR FEVER Last administered on 06/02/17 08:59; Admin Dose 650 MG; Start 06/01/17 at 10:30 Acetaminophen/ Hydrocodone Bitart (Romayor (5/325)) 1 tab Q6H PRN PO MODERATE PAIN LEVEL 4-6 Last administered on 06/01/17 11:44; Admin Dose 1 TAB; Start at 10:30 Morphine Sulfate (morphine) 2 mg Q4H PRN IV SEVERE PAIN LEVEL 7-10; Start 06/01 at 10:30 Docusate Sodium (Colace) 100 mg Q12H PRN PO CONSTIPATION; Start 06/01/17 at 10: 30 Magnesium Hydroxide (Milk Of Mag) 30 ml DAILY PRN PO CONSTIPATION; Start at 10:30 Sodium Biphosphate/ Sodium Phosphate (Fleet Enema) 133 ml DAILY PRN [place] CONSTIPATION; Start 06/01/17 at 10:30 Lorazepam (Ativan) 0.5 mg Q6H PRN IV ANXIETY Last administered on 06/01/17 14: 14; Admin Dose 0.5 MG; Start 06/01/17 at 10:30 Vancomycin HCl (Vanco Iv Per Pharmacy) VANCOMYCIN PER PHARMACY NOTE XX ; Start 06/01/17 at 10:30 Hydralazine HCl (Apresoline) 10 mg Q6H PRN IV ELEVATED BLOOD PRESSURE; Start at 10:30 Nitroglycerin (Nitroglycerin (Sl Tab) 0.4 Mg) 1 tab Q5M PRN SL ANGINA; Start at 10:30 Aspirin (Halfprin) 81 mg DAILY PO Last administered on 06/02/17 08:59; Admin Dose 81 MG; Start 06/02/17 at 09:00 Atorvastatin Calcium (Lipitor) 40 mg QHS PO Last administered on 06/01/17 21: 57; Admin Dose 40 MG; Start 06/01/17 at 21:00 Bisoprolol Fumarate (Zebeta) 10 mg DAILY PO Last administered on 06/02/17 09: 00; Admin Dose 10 MG; Start 06/02/17 at 09:00 Clopidogrel Bisulfate (plaVIX) 75 mg DAILY PO Last administered on 06/02/17 08 :59; Admin Dose 75 MG; Start 06/02/17 at 09:00 Dutasteride (Avodart) 0.5 mg DAILY PO Last administered on 06/02/17 08:58; Admin Dose 0.5 MG; Start 06/02/17 at 09:00 Pramipexole (Mirapex) 0.125 mg HS PO Last administered on 06/01/17 21:57; Admin Dose 0.125 MG; Start 06/01/17 at 21:00 Rivastigmine Tartrate (Exelon 4.6 Mg/ 24 Hr Patch) 1 patch DAILY TRANSDERM Last administered on 06/02/17 08:59; Admin Dose 1 PATCH; Start 06/02/17 at 09: 00 Silver Sulfadiazine (Thermazene 1% 25 Gm) 1 applic DAILY TOP ; Start 06/02/17 at 09:00 Tamsulosin HCl (Flomax) 0.4 mg HS PO Last administered on 06/01/17 21:57; Admin Dose 0.4 MG; Start 06/01/17 at 21:00 Pantoprazole 40 mg 40 mg DAILY@06 PO ; Start 06/02/17 at 06:00 Piperacillin Sod/ Tazobactam Sod 50 ml @ 100 mls/hr Q6 IVPB Last administered on 06/02/17 06:05; Admin Dose 100 MLS/HR; Start 06/01/17 at 18:00 Vancomycin HCl/ Sodium Chloride (Vancocin/NS) 150 ml @ 75 mls/hr Q48H IVPB ; Start 06/03/17 at 09:00 Tramadol HCl (Ultram) 50 mg Q6H PRN PO PAIN Last administered on 06/01/17 21: 57; Admin Dose 50 MG; Start 06/01/17 at 22:00 STELLA LAWSON MD Jun 02, 2017 09:30
[2017-06-02] MEDS: DEXTROSE 5% 1,000 ML IV SCH ×2 (10:04→23:40)
--- NOTE | 2017-06-02 10:09 | CONS ---
Date/Time of Note Date/Time of Note DATE: 06/02/17 TIME: 10:05 Consult Date/Type/Reason Admit Date/Time Jun 01, 2017 at 09:07 Initial Consult Date 06/01/17 Type of Consultation: CARDIOLOGY Ordering Provider: RAVINDRA BOYER MD Subjective D/W staff and rhythm was reviewed. pt remains in NSR but has had short run of NSVT. pt remains nonverbal. + cough no reports of any chest pain or pressure. OBJECTIVE: General: thin man in no resp distress HEENT: NC/AT. pupils are equal. round. NECK: NO JVD. no stridor. CV: RRR. systolic murmur grade III./; no gallop or rubs. PULM: +rhonchi right side mostly GI: SOFT, NT, ND, no rebound or guarding Extremity: no significant LE edema. no clubbing. neuro: awake but nonverbal. . moving all extremities. Psych: calm and pleasant rectal: deferred : normal male ECG reviewed personally NSR inf infarct. ant infarct age undetermined. CXR reviewed. focal infiltrate ECHO reviewed: 1. Normal left ventricular cavity size. Moderate concentric left ventricular hypertrophy. Severe left ventricular systolic dysfunction. Ejection fraction is visually estimated at 30 %. Abnormal Diastolic Function. These segments of the LV are hypokinetic basal anterior segment, mid anterior segment, apical anterior segment. , anterolateral mid segment. , apical lateral segment. , inferior apex segment, inferior mid segment, inferoseptum mid segment. , anteroseptum mid segment, apex. and apical septum. 2. There is mild enlargement of left atrium. 3. Mitral valve is not well visualized. Mitral valve leaflets appear mildly thickened. Severe mitral annular calcification. Trace mitral regurgitation. 4. Aortic valve not well visualized. Aortic cusps appear mildly calcified. Trace to mild aortic valve regurgitation. 5. Normal appearance of the tricuspid valve. Estimated peak PA systolic pressure 40 mmHg. There is mild tricuspid regurgitation. 6. Normal size and normal respiratory collapse consistent with normal right atrial pressure. Objective Vital Signs Date Time Temp Pulse Resp B/P Pulse Ox O2 Delivery O2 Flow Rate FiO2 06/02/17 08:36 101.3 95 23 126/79 98 06/02/17 05:30 40 06/01/17 21:10 BIPAP 06/01/17 11:22 2.0 Intake and Output 06/01/17 06/01/17 06/02/17 15:00 23:00 07:00 Intake Total 50 ml 50 ml Balance 50 ml 50 ml Results/Medications Result Diagram: 06/02/17 0706/02/17 07 Results 24 hrs Laboratory Tests Test 06/01/17 11:31 06/01/17 16:09 06/01/17 18:45 06/02/17 00:54 Prothrombin Time 15.7 H Prothrombin Time Ratio 1.2 INR International Normalized Ratio 1.24 Activated Partial Thromboplast Time 25.5 Lactic Acid Level 1.7 0.9 1.0 Sodium Level 145 H Potassium Level 5.1 Chloride Level 108 Carbon Dioxide Level 29 Anion Gap 13 Blood Urea Nitrogen 48 H Creatinine 2.58 H Glucose Level 123 Calcium Level 8.8 Test 06/02/17 07:01 White Blood Count 9.8 Red Blood Count 4.83 Hemoglobin 13.6 L Hematocrit 44.4 Mean Corpuscular Volume 91.9 Mean Corpuscular Hemoglobin 28.2 L Mean Corpuscular Hemoglobin Concent 30.6 L Red Cell Distribution Width 13.0 Platelet Count 195 Mean Platelet Volume 11.4 H Neutrophils % 79.8 H Lymphocytes % 11.8 L Monocytes % 7.6 Eosinophils % 0.0 Basophils % 0.2 Nucleated Red Blood Cells % 0.0 Neutrophils # 7.8 H Lymphocytes # 1.2 Monocytes # 0.7 Eosinophils # 0.0 Basophils # 0.0 Nucleated Red Blood Cells # 0.0 Sodium Level 146 H Potassium Level 5.2 H Chloride Level 109 Carbon Dioxide Level 30 Anion Gap 12 Blood Urea Nitrogen 52 H Creatinine 2.46 H Glucose Level 104 Lactic Acid Level 1.0 Calcium Level 8.6 Phosphorus Level 5.0 H Magnesium Level 2.2 Triglycerides Level 135 Cholesterol Level 127 LDL Cholesterol, Calculated 80 HDL Cholesterol 20 L Cholesterol/HDL Ratio 6.3 Thyroid Stimulating Hormone (TSH) 0.161 L Medications Current Medications Ondansetron HCl (Zofran Inj) 4 mg Q6H PRN IV NAUSEA AND/OR VOMITING; Start at 10:30 Acetaminophen (Tylenol Tab) 650 mg Q6H PRN PO PAIN LEVEL 1-3 OR FEVER Last administered on 06/02/17t 08:59; Admin Dose 650 MG; Start 06/01/17 at 10:30 Acetaminophen/ Hydrocodone Bitart ([place] (5/325)) 1 tab Q6H PRN PO MODERATE PAIN LEVEL 4-6 Last administered on 06/01/17 11:44; Admin Dose 1 TAB; Start at 10:30 Morphine Sulfate (morphine) 2 mg Q4H PRN IV SEVERE PAIN LEVEL 7-10; Start 06/01 at 10:30 Docusate Sodium (Colace) 100 mg Q12H PRN PO CONSTIPATION; Start 06/01/17 at 10: 30 Magnesium Hydroxide (Milk Of Mag) 30 ml DAILY PRN PO CONSTIPATION; Start at 10:30 Sodium Biphosphate/ Sodium Phosphate (Fleet Enema) 133 ml DAILY PRN [place] CONSTIPATION; Start 06/01/17 at 10:30 Lorazepam (Ativan) 0.5 mg Q6H PRN IV ANXIETY Last administered on 06/01/17 14: 14; Admin Dose 0.5 MG; Start 06/01/17 at 10:30 Vancomycin HCl (Vanco Iv Per Pharmacy) VANCOMYCIN PER PHARMACY NOTE XX ; Start 06/01/17 at 10:30 Hydralazine HCl (Apresoline) 10 mg Q6H PRN IV ELEVATED BLOOD PRESSURE; Start at 10:30 Nitroglycerin (Nitroglycerin (Sl Tab) 0.4 Mg) 1 tab Q5M PRN SL ANGINA; Start at 10:30 Aspirin (Halfprin) 81 mg DAILY PO Last administered on 06/02/17 08:59; Admin Dose 81 MG; Start 06/02/17 at 09:00 Atorvastatin Calcium (Lipitor) 40 mg QHS PO Last administered on 06/01/17 21: 57; Admin Dose 40 MG; Start 06/01/17 at 21:00 Bisoprolol Fumarate (Zebeta) 10 mg DAILY PO Last administered on 06/02/17 09: 00; Admin Dose 10 MG; Start 06/02/17 at 09:00 Clopidogrel Bisulfate (plaVIX) 75 mg DAILY PO Last administered on 06/02/17 08 :59; Admin Dose 75 MG; Start 06/02/17 at 09:00 Dutasteride (Avodart) 0.5 mg DAILY PO Last administered on 06/02/17 08:58; Admin Dose 0.5 MG; Start 06/02/17 at 09:00 Pramipexole (Mirapex) 0.125 mg HS PO Last administered on 06/01/17 21:57; Admin Dose 0.125 MG; Start 06/01/17 at 21:00 Rivastigmine Tartrate (Exelon 4.6 Mg/ 24 Hr Patch) 1 patch DAILY TRANSDERM Last administered on 06/02/17 08:59; Admin Dose 1 PATCH; Start 06/02/17 at 09: 00 Silver Sulfadiazine (Thermazene 1% 25 Gm) 1 applic DAILY TOP ; Start 06/02/17 at 09:00 Tamsulosin HCl (Flomax) 0.4 mg HS PO Last administered on 06/01/17 21:57; Admin Dose 0.4 MG; Start 06/01/17 at 21:00 Pantoprazole 40 mg 40 mg DAILY@06 PO ; Start 06/02/17 at 06:00 Piperacillin Sod/ Tazobactam Sod 50 ml @ 100 mls/hr Q6 IVPB Last administered on 06/02/17 06:05; Admin Dose 100 MLS/HR; Start 06/01/17 at 18:00 Vancomycin HCl/ Sodium Chloride (Vancocin/NS) 150 ml @ 75 mls/hr Q48H IVPB ; Start 06/03/17 at 09:00 Tramadol HCl 50 mg 50 mg Q6H PRN PO PAIN Last administered on 06/01/17 21:57; Admin Dose 50 MG; Start 06/01/17 at 22:00 Dextrose (D5W) 1,000 ml @ 75 mls/hr [id number] IV Last administered on 06/02/17 10:04; Admin Dose 75 MLS/HR; Start 06/02/17 at 10:00 Assessment/Plan Chief Complaint/Hosp Course Assessment: 1. abnormal ECG: but c/w old but not acute STEMI 2. pneumonia 3. most likely cardiomyopathy 4. HTN 5. hyper K 6. Renal failure; probably MAGDA 7. Dyslipidemia 8. hx CAD, [place] 9. encephalopathy 10. smoker 11. hx etoh use 12. NSVT Recommendations: CONT ASA/ Plavix abx as per IM off off ARB/ YUMIKO now due to MAGDA and hyper K. f/u renal consultations rec as well diuresis prn only. at this time appears dehydrated but need to be careful with IV fluid due to most likely cardiomyopathy based on ECG R/O IN. Betablockers as tolerated. tele monitoring Thank you for his referral. I will continue to follow along with you. JUAN HOLMAN Problems: JUAN HOLMAN MD Jun 02, 2017 10:09
[2017-06-02 12:23] LABS: CK-MB 4.61 ng/ml (0.0-2.4)
[2017-06-02 12:25] LABS: TROPONIN-I 0.152 ng/ml (0.00-0.12)
[2017-06-02] MEDS: LORAZEPAM 2 MG INJ IV PRN (12:26)
--- NOTE | 2017-06-02 15:52 | PN ---
Date/Time of Note Date/Time of Note DATE: 06/02/17 TIME: 15:46 Assessment/Plan VTE Prophylaxis VTE Prophylaxis Intervention: SCD's Lines/Catheters [facility] Peripheral IV Urinary Cath still in place: No Assessment/Plan Chief Complaint/Hosp Course Assessment and plan: 86-year-old male presenting with hypoxia and shortness of breath secondary to pneumonia as well as renal insufficiency. 1. Respiratory: Again signs of pneumonia, on oxygen. Evaluated by pulmonary team, received BiPAP yesterday. -Follow pulmonary recommendations, duo nebs as needed, continue broad- spectrum antibiotics. Follow physical therapy consult recommendations. 2. Renal insufficiency: Appreciate renal consult, monitor urine output, BUN/ creatinine levels daily 3. Elevated troponins: Per cardiology team management for now, trend troponins , echocardiogram results noted 4. High cholesterol: Follow-up lipid panel 5. Smoking history -counseled on cessation 6. History of alcohol use: Counseled on cessation 7. Coronary artery disease prior [place]: Follow cardiology recommendations continue aspirin and Plavix Problems: Subjective 24 Hr Interval Summary Free Text/Dictation Patient seen by speech, renal, physical therapy, cardiology teams today. Still with some mild agitation symptoms as well. Exam/Review of Systems Vital Signs Vitals Vital Signs Date Time Temp Pulse Resp B/P Pulse Ox O2 Delivery O2 Flow Rate FiO2 06/02/17 14:29 172 06/02/17 12:30 Nasal Cannula 2.0 06/02/17 11:57 98.7 22 91/50 94 06/02/17 05:30 40 Intake and Output 06/01/17 06/01/17 06/02/17 15:00 23:00 07:00 Intake Total 50 ml 50 ml Balance 50 ml 50 ml Exam General: thin man in mild resp distress HEENT: NC/AT. pupils are equal. round. NECK: NO JVD. no stridor. CV: RRR. systolic murmur grade III./; no gallop or rubs. PULM: +r rhonchi right side. GI: SOFT, NT, ND, no rebound or guarding Extremity: no significant LE edema. no clubbing. neuro: awake and alert,. moving all extremities. Psych: calm and pleasant rectal: deferred : normal male Results Result Diagram: 06/02/17 0706/02/17 07 Results 24 hrs Laboratory Tests Test 06/01/17 16:09 06/01/17 18:45 06/02/17 00:54 06/02/17 07:01 Sodium Level 145 H 146 H Potassium Level 5.1 5.2 H Chloride Level 108 109 Carbon Dioxide Level 29 30 Anion Gap 13 12 Blood Urea Nitrogen 48 H 52 H Creatinine 2.58 H 2.46 H Glucose Level 123 104 Calcium Level 8.8 8.6 Lactic Acid Level 0.9 1.0 1.0 White Blood Count 9.8 Red Blood Count 4.83 Hemoglobin 13.6 L Hematocrit 44.4 Mean Corpuscular Volume 91.9 Mean Corpuscular Hemoglobin 28.2 L Mean Corpuscular Hemoglobin Concent 30.6 L Red Cell Distribution Width 13.0 Platelet Count 195 Mean Platelet Volume 11.4 H Neutrophils % 79.8 H Lymphocytes % 11.8 L Monocytes % 7.6 Eosinophils % 0.0 Basophils % 0.2 Nucleated Red Blood Cells % 0.0 Neutrophils # 7.8 H Lymphocytes # 1.2 Monocytes # 0.7 Eosinophils # 0.0 Basophils # 0.0 Nucleated Red Blood Cells # 0.0 Hemoglobin A1c 5.9 Phosphorus Level 5.0 H Magnesium Level 2.2 Creatine Kinase 1570 H Creatine Kinase Index 0.3 Creatinine Kinase MB (Mass) 4.61 H Troponin I 0.152 *H Triglycerides Level 135 Cholesterol Level 127 LDL Cholesterol, Calculated 80 HDL Cholesterol 20 L Cholesterol/HDL Ratio 6.3 Thyroid Stimulating Hormone (TSH) 0.161 L Test 06/02/17 12:05 Lactic Acid Level 0.9 Medications Medications Current Medications Ondansetron HCl (Zofran Inj) 4 mg Q6H PRN IV NAUSEA AND/OR VOMITING; Start at 10:30 Acetaminophen (Tylenol Tab) 650 mg Q6H PRN PO PAIN LEVEL 1-3 OR FEVER Last administered on 06/02/17 08:59; Admin Dose 650 MG; Start 06/01/17 at 10:30 Acetaminophen/ Hydrocodone Bitart ([place] (5/325)) 1 tab Q6H PRN PO MODERATE PAIN LEVEL 4-6 Last administered on 06/01/17 11:44; Admin Dose 1 TAB; Start at 10:30 Morphine Sulfate (morphine) 2 mg Q4H PRN IV SEVERE PAIN LEVEL 7-10; Start 06/01 at 10:30 Docusate Sodium (Colace) 100 mg Q12H PRN PO CONSTIPATION; Start 06/01/17 at 10: 30 Magnesium Hydroxide (Milk Of Mag) 30 ml DAILY PRN PO CONSTIPATION; Start at 10:30 Sodium Biphosphate/ Sodium Phosphate (Fleet Enema) 133 ml DAILY PRN [place] CONSTIPATION; Start 06/01/17 at 10:30 Lorazepam (Ativan) 0.5 mg Q6H PRN IV ANXIETY Last administered on 06/02/17 12: 26; Admin Dose 0.5 MG; Start 06/01/17 at 10:30 Vancomycin HCl (Vanco Iv Per Pharmacy) VANCOMYCIN PER PHARMACY NOTE XX ; Start 06/01/17 at 10:30 Hydralazine HCl (Apresoline) 10 mg Q6H PRN IV ELEVATED BLOOD PRESSURE; Start at 10:30 Nitroglycerin (Nitroglycerin (Sl Tab) 0.4 Mg) 1 tab Q5M PRN SL ANGINA; Start at 10:30 Aspirin (Halfprin) 81 mg DAILY PO Last administered on 06/02/17 08:59; Admin Dose 81 MG; Start 06/02/17 at 09:00 Atorvastatin Calcium (Lipitor) 40 mg QHS PO Last administered on 06/01/17 21: 57; Admin Dose 40 MG; Start 06/01/17 at 21:00 Bisoprolol Fumarate (Zebeta) 10 mg DAILY PO Last administered on 06/02/17 09: 00; Admin Dose 10 MG; Start 06/02/17 at 09:00 Clopidogrel Bisulfate (plaVIX) 75 mg DAILY PO Last administered on 06/02/17 08 :59; Admin Dose 75 MG; Start 06/02/17 at 09:00 Dutasteride (Avodart) 0.5 mg DAILY PO Last administered on 06/02/17 08:58; Admin Dose 0.5 MG; Start 06/02/17 at 09:00 Pramipexole (Mirapex) 0.125 mg HS PO Last administered on 06/01/17 21:57; Admin Dose 0.125 MG; Start 06/01/17 at 21:00 Rivastigmine Tartrate (Exelon 4.6 Mg/ 24 Hr Patch) 1 patch DAILY TRANSDERM Last administered on 06/02/17 08:59; Admin Dose 1 PATCH; Start 06/02/17 at 09: 00 Silver Sulfadiazine (Thermazene 1% 25 Gm) 1 applic DAILY TOP ; Start 06/02/17 at 09:00 Tamsulosin HCl (Flomax) 0.4 mg HS PO Last administered on 06/01/17 21:57; Admin Dose 0.4 MG; Start 06/01/17 at 21:00 Pantoprazole 40 mg 40 mg DAILY@06 PO ; Start 06/02/17 at 06:00 Piperacillin Sod/ Tazobactam Sod 50 ml @ 100 mls/hr Q6 IVPB Last administered on 06/02/17 12:40; Admin Dose 100 MLS/HR; Start 06/01/17 at 18:00 Vancomycin HCl/ Sodium Chloride (Vancocin/NS) 150 ml @ 75 mls/hr Q48H IVPB ; Start 06/03/17 at 09:00 Tramadol HCl 50 mg 50 mg Q6H PRN PO PAIN Last administered on 06/01/17 21:57; Admin Dose 50 MG; Start 06/01/17 at 22:00 Dextrose (D5W) 1,000 ml @ 75 mls/hr [id number] IV Last administered on 06/02/17 10:04; Admin Dose 75 MLS/HR; Start 06/02/17 at 10:00 Procedures Procedures 2D echocardiogram: ECHO reviewed: 1. Normal left ventricular cavity size. Moderate concentric left ventricular hypertrophy. Severe left ventricular systolic dysfunction. Ejection fraction is visually estimated at 30 %. Abnormal Diastolic Function. These segments of the LV are hypokinetic basal anterior segment, mid anterior segment, apical anterior segment. , anterolateral mid segment. , apical lateral segment. , inferior apex segment, inferior mid segment, inferoseptum mid segment. , anteroseptum mid segment, apex. and apical septum. 2. There is mild enlargement of left atrium. 3. Mitral valve is not well visualized. Mitral valve leaflets appear mildly thickened. Severe mitral annular calcification. Trace mitral regurgitation. 4. Aortic valve not well visualized. Aortic cusps appear mildly calcified. Trace to mild aortic valve regurgitation. 5. Normal appearance of the tricuspid valve. Estimated peak PA systolic pressure 40 mmHg. There is mild tricuspid regurgitation. 6. Normal size and normal respiratory collapse consistent with normal right atrial pressure. CALVIN MCKENZIE. Jun 02, 2017 15:52
--- NOTE | 2017-06-02 17:22 | RADRPT ---
PROCEDURE: XR Chest. CLINICAL INDICATION: Pneumonia TECHNIQUE: An AP view of the chest was obtained. COMPARISON: Chest x-ray dated 06/01/2017 FINDINGS: There is prominence of the interstitial markings with right basilar interstitial opacities and smal l right pleural effusion. No pneumothorax is seen. The cardiomediastinal silhouette is mildly en larged . Calcifications are seen within the aortic arch. The osseous structures demonstrate senesce nt changes. IMPRESSION: 1. Small right pleural effusion with right basilar atelectasis versus pneumonia, mildly increased w hen compared to the prior examination. 2. Mild prominence of the interstitial markings, may reflect mild underlying interstitial edema or chronic lung changes. 3. Mild cardiomegaly and aortic atherosclerosis. RPTAT: HH .More Yu MD, Date Time Electronically viewed and signed by .More Yu MD, on 06/02/2017 17:22 .G/
--- NOTE | 2017-06-02 17:54 | CONS ---
Date/Time of Note Date/Time of Note DATE: 06/02/17 TIME: 17:52 Consult Date/Type/Reason Admit Date/Time Jun 01, 2017 at 09:07 Initial Consult Date 06/01/17 Type of Consultation: Pulm Ordering Provider: RAVINDRA BOYER MD Subjective No events. Objective Vital Signs Date Time Temp Pulse Resp B/P Pulse Ox O2 Delivery O2 Flow Rate FiO2 06/02/17 16:50 74 06/02/17 16:31 97.6 19 102/52 96 06/02/17 12:30 Nasal Cannula 2.0 06/02/17 05:30 40 Intake and Output 06/01/17 06/01/17 06/02/17 15:00 23:00 07:00 Intake Total 50 ml 50 ml Balance 50 ml 50 ml Exam HEENT: Neck supple; no JVD; no LAD CVS: RRR, S1 and S2 CHEST: Clear ABD: Soft, NT, + BS EXT: No c/c/e Results/Medications Result Diagram: 06/02/17 0701 06/02/17 0701 Results 24 hrs Laboratory Tests Test 06/01/17 18:45 06/02/17 00:54 06/02/17 07:01 06/02/17 12:05 Lactic Acid Level 0.9 1.0 1.0 0.9 White Blood Count 9.8 Red Blood Count 4.83 Hemoglobin 13.6 L Hematocrit 44.4 Mean Corpuscular Volume 91.9 Mean Corpuscular Hemoglobin 28.2 L Mean Corpuscular Hemoglobin Concent 30.6 L Red Cell Distribution Width 13.0 Platelet Count 195 Mean Platelet Volume 11.4 H Neutrophils % 79.8 H Lymphocytes % 11.8 L Monocytes % 7.6 Eosinophils % 0.0 Basophils % 0.2 Nucleated Red Blood Cells % 0.0 Neutrophils # 7.8 H Lymphocytes # 1.2 Monocytes # 0.7 Eosinophils # 0.0 Basophils # 0.0 Nucleated Red Blood Cells # 0.0 Sodium Level 146 H Potassium Level 5.2 H Chloride Level 109 Carbon Dioxide Level 30 Anion Gap 12 Blood Urea Nitrogen 52 H Creatinine 2.46 H Glucose Level 104 Hemoglobin A1c 5.9 Calcium Level 8.6 Phosphorus Level 5.0 H Magnesium Level 2.2 Creatine Kinase 1570 H Creatine Kinase Index 0.3 Creatinine Kinase MB (Mass) 4.61 H Troponin I 0.152 *H Triglycerides Level 135 Cholesterol Level 127 LDL Cholesterol, Calculated 80 HDL Cholesterol 20 L Cholesterol/HDL Ratio 6.3 Thyroid Stimulating Hormone (TSH) 0.161 L Medications Current Medications Ondansetron HCl (Zofran Inj) 4 mg Q6H PRN IV NAUSEA AND/OR VOMITING; Start at 10:30 Acetaminophen (Tylenol Tab) 650 mg Q6H PRN PO PAIN LEVEL 1-3 OR FEVER Last administered on 06/02/17 08:59; Admin Dose 650 MG; Start 06/01/17 at 10:30 Acetaminophen/ Hydrocodone Bitart ([place] (5/325)) 1 tab Q6H PRN PO MODERATE PAIN LEVEL 4-6 Last administered on 06/01/17 11:44; Admin Dose 1 TAB; Start at 10:30 Morphine Sulfate (morphine) 2 mg Q4H PRN IV SEVERE PAIN LEVEL 7-10; Start 06/01 at 10:30 Docusate Sodium (Colace) 100 mg Q12H PRN PO CONSTIPATION; Start 06/01/17 at 10: 30 Magnesium Hydroxide (Milk Of Mag) 30 ml DAILY PRN PO CONSTIPATION; Start at 10:30 Sodium Biphosphate/ Sodium Phosphate (Fleet Enema) 133 ml DAILY PRN [place] CONSTIPATION; Start 06/01/17 at 10:30 Lorazepam (Ativan) 0.5 mg Q6H PRN IV ANXIETY Last administered on 06/02/17 12: 26; Admin Dose 0.5 MG; Start 06/01/17 at 10:30 Vancomycin HCl (Vanco Iv Per Pharmacy) VANCOMYCIN PER PHARMACY NOTE XX ; Start 06/01/17 at 10:30 Hydralazine HCl (Apresoline) 10 mg Q6H PRN IV ELEVATED BLOOD PRESSURE; Start at 10:30 Nitroglycerin (Nitroglycerin (Sl Tab) 0.4 Mg) 1 tab Q5M PRN SL ANGINA; Start at 10:30 Aspirin (Halfprin) 81 mg DAILY PO Last administered on 06/02/17 08:59; Admin Dose 81 MG; Start 06/02/17 at 09:00 Atorvastatin Calcium (Lipitor) 40 mg QHS PO Last administered on 06/01/17 21: 57; Admin Dose 40 MG; Start 06/01/17 at 21:00 Bisoprolol Fumarate (Zebeta) 10 mg DAILY PO Last administered on 06/02/17 09: 00; Admin Dose 10 MG; Start 06/02/17 at 09:00 Clopidogrel Bisulfate (plaVIX) 75 mg DAILY PO Last administered on 06/02/17 08 :59; Admin Dose 75 MG; Start 06/02/17 at 09:00 Dutasteride (Avodart) 0.5 mg DAILY PO Last administered on 06/02/17 08:58; Admin Dose 0.5 MG; Start 06/02/17 at 09:00 Pramipexole (Mirapex) 0.125 mg HS PO Last administered on 06/01/17 21:57; Admin Dose 0.125 MG; Start 06/01/17 at 21:00 Rivastigmine Tartrate (Exelon 4.6 Mg/ 24 Hr Patch) 1 patch DAILY TRANSDERM Last administered on 06/02/17 08:59; Admin Dose 1 PATCH; Start 06/02/17 at 09: 00 Silver Sulfadiazine (Thermazene 1% 25 Gm) 1 applic DAILY TOP ; Start 06/02/17 at 09:00 Tamsulosin HCl (Flomax) 0.4 mg HS PO Last administered on 06/01/17 21:57; Admin Dose 0.4 MG; Start 06/01/17 at 21:00 Pantoprazole 40 mg 40 mg DAILY@06 PO ; Start 06/02/17 at 06:00 Piperacillin Sod/ Tazobactam Sod 50 ml @ 100 mls/hr Q6 IVPB Last administered on 06/02/17 12:40; Admin Dose 100 MLS/HR; Start 06/01/17 at 18:00 Vancomycin HCl/ Sodium Chloride (Vancocin/NS) 150 ml @ 75 mls/hr Q48H IVPB ; Start 06/03/17 at 09:00 Tramadol HCl 50 mg 50 mg Q6H PRN PO PAIN Last administered on 06/01/17 21:57; Admin Dose 50 MG; Start 06/01/17 at 22:00 Dextrose (D5W) 1,000 ml @ 75 mls/hr [id number] IV Last administered on 06/02/17 10:04; Admin Dose 75 MLS/HR; Start 06/02/17 at 10:00 Assessment/Plan Additional Assessment/Plan 1. 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 Azotemia 3. COPD RECS 1. Minimize O2 to SpO2 88-92% 2. BDs 3. CS 4. VAMSI Coker MD Jun 02, 2017 17:54
[2017-06-02] MEDS: TAMSULOSIN (SR) 0.4 MG CAP PO SCH ×2 (20:32→20:54)
[2017-06-02] MEDS: PRAMIPEXOLE 0.125 MG TAB PO SCH ×2 (20:32→20:54)
[2017-06-02] MEDS: ATORVASTATIN 40 MG TAB PO SCH ×2 (20:32→20:54)
[2017-06-02] MEDS: traMADol 50 MG TAB PO PRN (20:36)
[2017-06-02] MEDS: morphine 2 MG INJ IV PRN (23:34)
[2017-06-03] VITALS (14 sets, daily range): BP systolic 106–129; BP diastolic 53–72; PULSE 66–160; RESP 15–68
[2017-06-03] MEDS: PANTOPRAZOLE (EC) 40 MG TAB PO SCH (05:16)
[2017-06-03] MEDS: PIPER-TAZO 2.25 GM (PMX) 50 ML IVPB SCH ×5 (05:19→23:56)
[2017-06-03 07:55] LABS: BASOPHILS % 0.3 % (0.0-2.0); HEMATOCRIT 42.5 % (42.0-52.0); HEMOGLOBIN 13.1 g/dl (14.0-18.0); LYMPHOCYTES # 1.2 10^3/ul (0.8-2.9); LYMPHOCYTES % 12.2 % (15.0-51.0); MEAN CORPUSCULAR HEMOGLOBIN 28.6 pg (29.0-33.0); MEAN CORPUSCULAR HGB CONC 30.8 g/dl (32.0-37.0); MEAN CORPUSCULAR VOLUME 92.8 fl (82.0-101.0); MEAN PLATELET VOLUME 11.3 fl (7.4-10.4); MONOCYTE # 0.7 10^3/ul (0.3-0.9); MONOCYTES % 7.5 % (0.0-11.0); NEUTROPHIL # 7.7 10^3/ul (1.6-7.5); NEUTROPHILS % 79.5 % (39.0-77.0); PLATELET COUNT 171 10^3/UL (140-415); RED BLOOD COUNT 4.58 10^6/ul (4.70-6.10); RED CELL DISTRIBUTION WIDTH 12.8 % (11.5-14.5); WHITE BLOOD COUNT 9.6 10^3/ul (4.8-10.8)
[2017-06-03 08:19] LABS: MAGNESIUM 2.3 mg/dl (1.7-2.5)
[2017-06-03 08:20] LABS: CALCIUM 8.6 mg/dl (8.4-10.2); CREATININE 2.24 mg/dl (0.61-1.24); POTASSIUM 4.8 mmol/L (3.5-5.1)
[2017-06-03 08:29] LABS: CK-MB 4.29 ng/ml (0.0-2.4); TROPONIN-I 0.146 ng/ml (0.00-0.12)
[2017-06-03] MEDS: CLOPIDOGREL 75 MG TAB PO SCH (09:00)
[2017-06-03] MEDS: ASPIRIN (EC) 81 MG TAB PO SCH (09:00)
[2017-06-03] MEDS: BISOPROLOL 5 MG TAB PO SCH (09:00)
[2017-06-03] MEDS: DUTASTERIDE 0.5 MG CAP PO SCH (09:00)
[2017-06-03] MEDS: SILVER SULFADIAZINE 1% 25 GM CR TOP SCH (09:00)
--- NOTE | 2017-06-03 09:12 | HP ---
Date/Time of Note Date/Time of Note DATE: 06/03/17 TIME: 09:03 Assessment/Plan VTE Prophylaxis VTE Prophylaxis Intervention: SCD's Lines/Catheters IV Catheter Type (from [facility]): Peripheral IV Urinary Cath still in place: No Assessment/Plan Chief Complaint/Hosp Course Assessment and plan: 86-year-old male presenting with hypoxia and shortness of breath and hypoxia secondary to likely pneumonia as well as renal insufficiency. 1. Respiratory: Itching indicate signs of pneumonia, also hypoxia -Admit patient, check TSH A1c lipid panel, start broad-spectrum antibiotics. -Obtain pulmonary consult, continue duo nebs as needed, -We will get physical therapy consult 2. Renal insufficiency: We will get renal consult, monitor urine output, BUN/ creatinine levels daily 3. Elevated troponins: Per cardiology team rule out acute coronary syndrome,, trend troponins, follow-up echocardiogram 4. High cholesterol: Follow-up lipid panel 5. Smoking history -counseled on cessation 6. History of alcohol use: Counseled on cessation 7. Coronary artery disease prior [place]: Follow cardiology recommendations continue aspirin and Plavix Problems: HPI/ROS Admit Date/Time Admit Date/Time Jun 01, 2017 at 09:07 Hx of Present Illness 86-year-old male past medical history of questionable heart valvular disease, possible [place] in the past, smoker, essential hypertension, high cholesterol who presents today with shortness of breath. Most of the information is obtained from the ER documentation as the patient is not able to provide full HPI presently.. Patient symptoms have been going on for the last 3 days the patient has had generalized weakness, confusion and subjective fever. Positive productive cough of yellowish sputum as well. When patient arrived to ER he was short of breath and hypoxic to low 80s responsive to breathing treatment. There was also concern of possible EKG changes and on-call apprentice photographer was called to evaluate for left heart cath, but they determined patient does not need angiogram at this time. No diarrhea or constipation, no upper or lower GI bleeding. PMH/Family/Social Past Surgical History Past Surgical Hx: other (Unknown) Family History Significant Family History: other (Unknown) Social History Alcohol Use: none Smoking Status: Current every day smoker Drug Use: none Exam/Review of Systems Vital Signs Vitals Vital Signs Date Time Temp Pulse Resp B/P Pulse Ox O2 Delivery O2 Flow Rate FiO2 9/17/17 08:20 67 06/03/17 08:17 99.0 21 122/72 96 06/03/17 08:11 Nasal Cannula 4.0 06/02/17 23:18 40 Intake and Output 06/02/17 06/02/17 06/03/17 15:00 23:00 07:00 Intake Total 50 ml 1050 ml Balance 50 ml 1050 ml Exam Exam General: Lying in bed, somewhat lethargic HEENT: NC/AT. pupils are equal. round. NECK: NO JVD. no stridor. CV: RRR. no gallop or rubs. PULM: +r rhonchi right side. GI: SOFT, NT, ND, no rebound or guarding Extremity: no significant LE edema. no clubbing. neuro: No focal deficits Labs Result Diagram: 06/03/1716 06/03/17 0716 Medications Medications Current Medications Ondansetron HCl (Zofran Inj) 4 mg Q6H PRN IV NAUSEA AND/OR VOMITING; Start at 10:30 Acetaminophen (Tylenol Tab) 650 mg Q6H PRN PO PAIN LEVEL 1-3 OR FEVER Last administered on 06/02/17 08:59; Admin Dose 650 MG; Start 06/01/17 at 10:30 Acetaminophen/ Hydrocodone Bitart ([place] (5/325)) 1 tab Q6H PRN PO MODERATE PAIN LEVEL 4-6 Last administered on 06/01/17 11:44; Admin Dose 1 TAB; Start at 10:30 Morphine Sulfate (morphine) 2 mg Q4H PRN IV SEVERE PAIN LEVEL 7-10 Last administered on 06/02/17 23:34; Admin Dose 2 MG; Start 06/01/17 at 10:30 Docusate Sodium (Colace) 100 mg Q12H PRN PO CONSTIPATION; Start 06/01/17 at 10: 30 Magnesium Hydroxide (Milk Of Mag) 30 ml DAILY PRN PO CONSTIPATION; Start at 10:30 Sodium Biphosphate/ Sodium Phosphate (Fleet Enema) [address] CONSTIPATION; Start 06/01/17 at 10:30 Lorazepam (Ativan) 0.5 mg Q6H PRN IV ANXIETY Last administered on 06/02/17 12: 26; Admin Dose 0.5 MG; Start 06/01/17 at 10:30 Vancomycin HCl (Vanco Iv Per Pharmacy) VANCOMYCIN PER PHARMACY NOTE XX ; Start 06/01/17 at 10:30 Hydralazine HCl (Apresoline) 10 mg Q6H PRN IV ELEVATED BLOOD PRESSURE; Start at 10:30 Nitroglycerin (Nitroglycerin (Sl Tab) 0.4 Mg) 1 tab Q5M PRN SL ANGINA; Start at 10:30 Aspirin (Halfprin) 81 mg DAILY PO Last administered on 06/02/17 08:59; Admin Dose 81 MG; Start 06/02/17 at 09:00 Atorvastatin Calcium (Lipitor) 40 mg QHS PO Last administered on 06/01/17 21: 57; Admin Dose 40 MG; Start 06/01/17 at 21:00 Bisoprolol Fumarate (Zebeta) 10 mg DAILY PO Last administered on 06/02/17 09: 00; Admin Dose 10 MG; Start 06/02/17 at 09:00 Clopidogrel Bisulfate (plaVIX) 75 mg DAILY PO Last administered on 06/02/17 08 :59; Admin Dose 75 MG; Start 06/02/17 at 09:00 Dutasteride (Avodart) 0.5 mg DAILY PO Last administered on 06/02/17 08:58; Admin Dose 0.5 MG; Start 06/02/17 at 09:00 Pramipexole (Mirapex) 0.125 mg HS PO Last administered on 06/01/17 21:57; Admin Dose 0.125 MG; Start 06/01/17 at 21:00 Rivastigmine Tartrate (Exelon 4.6 Mg/ 24 Hr Patch) 1 patch DAILY TRANSDERM Last administered on 06/02/17 08:59; Admin Dose 1 PATCH; Start 06/02/17 at 09: 00 Silver Sulfadiazine (Thermazene 1% 25 Gm) 1 applic DAILY TOP ; Start 06/02/17 at 09:00 Tamsulosin HCl (Flomax) 0.4 mg HS PO Last administered on 06/01/17 21:57; Admin Dose 0.4 MG; Start 06/01/17 at 21:00 Pantoprazole 40 mg 40 mg DAILY@06 PO ; Start 06/02/17 at 06:00 Piperacillin Sod/ Tazobactam Sod 50 ml @ 100 mls/hr Q6 IVPB Last administered on 06/03/17 05:19; Admin Dose 100 MLS/HR; Start 06/01/17 at 18:00 Vancomycin HCl/ Sodium Chloride (Vancocin/NS) 150 ml @ 75 mls/hr Q48H IVPB ; Start 06/03/17 at 09:00 Tramadol HCl 50 mg 50 mg Q6H PRN PO PAIN Last administered on 06/02/17 20:36; Admin Dose 50 MG; Start 06/01/17 at 22:00 Dextrose (D5W) 1,000 ml @ 75 mls/hr [id number] IV Last administered on 06/02/17 23:40; Admin Dose 75 MLS/HR; Start 06/02/17 at 10:00 CALVIN MCKENZIE Jun 03, 2017 09:12
--- NOTE | 2017-06-03 09:44 | CONS ---
Date/Time of Note Date/Time of Note DATE: 06/03/17 TIME: 09:41 Assessment/Plan Assessment/Plan Problems: (1) Acute renal insufficiency Status: Acute Comment: still no lopez in place, and had documented elevated PVR yesterday... Cr actually a bit lower today... no idea of his UOP tho... lytes fine, but does need a lopez...?urology to place? (2) Encephalopathy acute Status: Acute Comment: no change (3) Healthcare-associated pneumonia Status: Acute Comment: not wearing bipap Consultation Date/Type/Reason Admit Date/Time Jun 01, 2017 at 09:07 Initial Consult Date 06/01/17 Type of Consultation: renal Referring Provider: RAVINDRA BOYER MD 24 HR Interval Summary Free Text/Dictation no c/o...not follow Exam/Review of Systems Vital Signs Vitals Vital Signs Date Time Temp Pulse Resp B/P Pulse Ox O2 Delivery O2 Flow Rate FiO2 06/03/17 08:20 67 06/03/17 08:17 99.0 21 122/72 96 06/03/17 08:11 Nasal Cannula 4.0 06/02/17 23:18 40 Intake and Output 06/02/17 06/02/17 06/03/17 15:00 23:00 07:00 Intake Total 50 ml 1050 ml Balance 50 ml 1050 ml Exam Constitutional: non-verbal Neck: supple Respiratory: clear to auscultation Cardiovascular: regular rate and rhythm Gastrointestinal: soft Extremities: normal pulses Results Result Diagram: 06/03/17 0716 06/03/17 0716 Results 24 hrs Laboratory Tests Test 06/02/17 12:05 06/02/17 19:12 06/03/17 07:16 Lactic Acid Level 0.9 1.1 White Blood Count 9.6 Red Blood Count 4.58 L Hemoglobin 13.1 L Hematocrit 42.5 Mean Corpuscular Volume 92.8 Mean Corpuscular Hemoglobin 28.6 L Mean Corpuscular Hemoglobin Concent 30.8 L Red Cell Distribution Width 12.8 Platelet Count 171 Mean Platelet Volume 11.3 H Neutrophils % 79.5 H Lymphocytes % 12.2 L Monocytes % 7.5 Eosinophils % 0.0 Basophils % 0.3 Nucleated Red Blood Cells % 0.0 Neutrophils # 7.7 H Lymphocytes # 1.2 Monocytes # 0.7 Eosinophils # 0.0 Basophils # 0.0 Nucleated Red Blood Cells # 0.0 Sodium Level 143 Potassium Level 4.8 Chloride Level 106 Carbon Dioxide Level 33 H Anion Gap 9 Blood Urea Nitrogen 51 H Creatinine 2.24 H Glucose Level 119 Calcium Level 8.6 Magnesium Level 2.3 Creatine Kinase 953 H Creatine Kinase Index 0.5 Creatinine Kinase MB (Mass) 4.29 H Troponin I 0.146 *H B-Type Natriuretic Peptide 83124 H Medications Medications Current Medications Ondansetron HCl (Zofran Inj) 4 mg Q6H PRN IV NAUSEA AND/OR VOMITING; Start at 10:30 Acetaminophen (Tylenol Tab) 650 mg Q6H PRN PO PAIN LEVEL 1-3 OR FEVER Last administered on 06/02/17 08:59; Admin Dose 650 MG; Start 06/01/17 at 10:30 Acetaminophen/ Hydrocodone Bitart ([place] (5/325)) 1 tab Q6H PRN PO MODERATE PAIN LEVEL 4-6 Last administered on 06/01/17 11:44; Admin Dose 1 TAB; Start at 10:30 Morphine Sulfate (morphine) 2 mg Q4H PRN IV SEVERE PAIN LEVEL 7-10 Last administered on 06/02/17 23:34; Admin Dose 2 MG; Start 06/01/17 at 10:30 Docusate Sodium (Colace) 100 mg Q12H PRN PO CONSTIPATION; Start 06/01/17 at 10: 30 Magnesium Hydroxide (Milk Of Mag) 30 ml DAILY PRN PO CONSTIPATION; Start at 10:30 Sodium Biphosphate/ Sodium Phosphate (Fleet Enema) 133 ml DAILY PRN [place] CONSTIPATION; Start 06/01/17 at 10:30 Lorazepam (Ativan) 0.5 mg Q6H PRN IV ANXIETY Last administered on 06/02/17 12: 26; Admin Dose 0.5 MG; Start 06/01/17 at 10:30 Vancomycin HCl (Vanco Iv Per Pharmacy) VANCOMYCIN PER PHARMACY NOTE XX ; Start 06/01/17 at 10:30 Hydralazine HCl (Apresoline) 10 mg Q6H PRN IV ELEVATED BLOOD PRESSURE; Start at 10:30 Nitroglycerin (Nitroglycerin (Sl Tab) 0.4 Mg) 1 tab Q5M PRN SL ANGINA; Start at 10:30 Aspirin (Halfprin) 81 mg DAILY PO Last administered on 06/02/17 08:59; Admin Dose 81 MG; Start 06/02/17 at 09:00 Atorvastatin Calcium (Lipitor) 40 mg QHS PO Last administered on 06/01/17 21: 57; Admin Dose 40 MG; Start 06/01/17 at 21:00 Bisoprolol Fumarate (Zebeta) 10 mg DAILY PO Last administered on 06/02/17 09: 00; Admin Dose 10 MG; Start 06/02/17 at 09:00 Clopidogrel Bisulfate (plaVIX) 75 mg DAILY PO Last administered on 06/02/17 08 :59; Admin Dose 75 MG; Start 06/02/17 at 09:00 Dutasteride (Avodart) 0.5 mg DAILY PO Last administered on 06/02/17 08:58; Admin Dose 0.5 MG; Start 06/02/17 at 09:00 Pramipexole (Mirapex) 0.125 mg HS PO Last administered on 06/01/17 21:57; Admin Dose 0.125 MG; Start 06/01/17 at 21:00 Rivastigmine Tartrate (Exelon 4.6 Mg/ 24 Hr Patch) 1 patch DAILY TRANSDERM Last administered on 06/02/17 08:59; Admin Dose 1 PATCH; Start 06/02/17 at 09: 00 Silver Sulfadiazine (Thermazene 1% 25 Gm) 1 applic DAILY TOP ; Start 06/02/17 at 09:00 Tamsulosin HCl (Flomax) 0.4 mg HS PO Last administered on 06/01/17 21:57; Admin Dose 0.4 MG; Start 06/01/17 at 21:00 Pantoprazole 40 mg 40 mg DAILY@06 PO ; Start 06/02/17 at 06:00 Piperacillin Sod/ Tazobactam Sod 50 ml @ 100 mls/hr Q6 IVPB Last administered on 06/03/17 05:19; Admin Dose 100 MLS/HR; Start 06/01/17 at 18:00 Vancomycin HCl/ Sodium Chloride (Vancocin/NS) 150 ml @ 75 mls/hr Q48H IVPB ; Start 06/03/17 at 09:00 Tramadol HCl 50 mg 50 mg Q6H PRN PO PAIN Last administered on 06/02/17 20:36; Admin Dose 50 MG; Start 06/01/17 at 22:00 Dextrose (D5W) 1,000 ml @ 75 mls/hr [id number] IV Last administered on 06/02/17 23:40; Admin Dose 75 MLS/HR; Start 06/02/17 at 10:00 STELLA LAWSON MD Jun 03, 2017 09:44
[2017-06-03] MEDS: RIVASTIGMINE 4.6MG/24H PATCH TRANSDERM SCH (09:54)
[2017-06-03] MEDS: VANCOMYCIN 750 MG in SOD CHLORIDE 0.9% 150 ML IVPB SCH (09:59)
[2017-06-03] MEDS: morphine 2 MG INJ IV PRN (11:00)
[2017-06-03] MEDS: DEXTROSE 5% 1,000 ML IV SCH ×2 (12:00→20:31)
--- NOTE | 2017-06-03 12:40 | PN ---
Date/Time of Note Date/Time of Note DATE: 06/03/17 TIME: 12:38 Assessment/Plan VTE Prophylaxis VTE Prophylaxis Intervention: SCD's Lines/Catheters [facility]from [facility] Peripheral IV Urinary Cath still in place: No Assessment/Plan Chief Complaint/Hosp Course Assessment and plan: 86-year-old male presenting with hypoxia and shortness of breath secondary to pneumonia as well as renal insufficiency. 1. Respiratory: Again signs of pneumonia, on oxygen. No fevers in the last 24 hours, white blood cell count normal now, slowly improving. Evaluated by pulmonary team -Follow pulmonary recommendations, duo nebs as needed, continue broad- spectrum antibiotics. - Follow physical therapy consult recommendations. 2. Renal insufficiency: Appreciate renal consult, creatinine slightly lower today. Denies condom catheter in place - monitor urine output, BUN/creatinine levels daily, follow-up renal recommendations 3. Elevated troponins: Per cardiology team management for now, trend troponins , medical management for now, echocardiogram results noted 4. High cholesterol: Continue Zetia 5. Smoking history -counseled on cessation 6. History of alcohol use: Counseled on cessation 7. Coronary artery disease prior [place]: Follow cardiology recommendations continue aspirin and Plavix Problems: Subjective 24 Hr Interval Summary Free Text/Dictation No acute events overnight, still somewhat weak, but is slightly more alert today. Exam/Review of Systems Vital Signs Vitals Vital Signs Date Time Temp Pulse Resp B/P Pulse Ox O2 Delivery O2 Flow Rate FiO2 06/03/17 12:18 66 06/03/17 12:11 98.0 27 106/53 95 06/03/17 08:11 Nasal Cannula 4.0 06/02/17 23:18 40 Intake and Output 06/02/17 06/02/17 06/03/17 15:00 23:00 07:00 Intake Total 950 ml 1050 ml Balance 950 ml 1050 ml Exam General: thin man, lying in bed, opens eyes HEENT: NC/AT. pupils are equal. round. NECK: NO JVD. no stridor. CV: RRR. systolic murmur grade III./; no gallop or rubs. PULM: +r rhonchi right side. GI: SOFT, NT, ND, no rebound or guarding Extremity: no significant LE edema. no clubbing. neuro: moving all extremities. Results Result Diagram: 06/03/17 0716 06/03/17 0716 Results 24 hrs Laboratory Tests Test 06/02/17 19:12 06/03/17 07:16 Lactic Acid Level 1.1 White Blood Count 9.6 Red Blood Count 4.58 L Hemoglobin 13.1 L Hematocrit 42.5 Mean Corpuscular Volume 92.8 Mean Corpuscular Hemoglobin 28.6 L Mean Corpuscular Hemoglobin Concent 30.8 L Red Cell Distribution Width 12.8 Platelet Count 171 Mean Platelet Volume 11.3 H Neutrophils % 79.5 H Lymphocytes % 12.2 L Monocytes % 7.5 Eosinophils % 0.0 Basophils % 0.3 Nucleated Red Blood Cells % 0.0 Neutrophils # 7.7 H Lymphocytes # 1.2 Monocytes # 0.7 Eosinophils # 0.0 Basophils # 0.0 Nucleated Red Blood Cells # 0.0 Sodium Level 143 Potassium Level 4.8 Chloride Level 106 Carbon Dioxide Level 33 H Anion Gap 9 Blood Urea Nitrogen 51 H Creatinine 2.24 H Glucose Level 119 Calcium Level 8.6 Magnesium Level 2.3 Creatine Kinase 953 H Creatine Kinase Index 0.5 Creatinine Kinase MB (Mass) 4.29 H Troponin I 0.146 *H B-Type Natriuretic Peptide 54495 H Medications Medications Current Medications Ondansetron HCl (Zofran Inj) 4 mg Q6H PRN IV NAUSEA AND/OR VOMITING; Start at 10:30 Acetaminophen (Tylenol Tab) 650 mg Q6H PRN PO PAIN LEVEL 1-3 OR FEVER Last administered on 06/02/17 08:59; Admin Dose 650 MG; Start 06/01/17 at 10:30 Acetaminophen/ Hydrocodone Bitart ([place] (5/325)) 1 tab Q6H PRN PO MODERATE PAIN LEVEL 4-6 Last administered on 06/01/17 11:44; Admin Dose 1 TAB; Start at 10:30 Morphine Sulfate (morphine) 2 mg Q4H PRN IV SEVERE PAIN LEVEL 7-10 Last administered on 06/02/17 23:34; Admin Dose 2 MG; Start 06/01/17 at 10:30 Docusate Sodium (Colace) 100 mg Q12H PRN PO CONSTIPATION; Start 06/01/17 at 10: 30 Magnesium Hydroxide (Milk Of Mag) 30 ml DAILY PRN PO CONSTIPATION; Start at 10:30 Sodium Biphosphate/ Sodium Phosphate (Fleet Enema) 133 ml DAILY PRN [place] CONSTIPATION; Start 06/01/17 at 10:30 Lorazepam (Ativan) 0.5 mg Q6H PRN IV ANXIETY Last administered on 06/02/17 12: 26; Admin Dose 0.5 MG; Start 06/01/17 at 10:30 Vancomycin HCl (Vanco Iv Per Pharmacy) VANCOMYCIN PER PHARMACY NOTE XX ; Start 06/01/17 at 10:30 Hydralazine HCl (Apresoline) 10 mg Q6H PRN IV ELEVATED BLOOD PRESSURE; Start at 10:30 Nitroglycerin (Nitroglycerin (Sl Tab) 0.4 Mg) 1 tab Q5M PRN SL ANGINA; Start at 10:30 Aspirin (Halfprin) 81 mg DAILY PO Last administered on 06/02/17 08:59; Admin Dose 81 MG; Start 06/02/17 at 09:00 Atorvastatin Calcium (Lipitor) 40 mg QHS PO Last administered on 06/01/17 21: 57; Admin Dose 40 MG; Start 06/01/17 at 21:00 Bisoprolol Fumarate (Zebeta) 10 mg DAILY PO Last administered on 06/02/17 09: 00; Admin Dose 10 MG; Start 06/02/17 at 09:00 Clopidogrel Bisulfate (plaVIX) 75 mg DAILY PO Last administered on 06/02/17 08 :59; Admin Dose 75 MG; Start 06/02/17 at 09:00 Dutasteride (Avodart) 0.5 mg DAILY PO Last administered on 06/02/17 08:58; Admin Dose 0.5 MG; Start 06/02/17 at 09:00 Pramipexole (Mirapex) 0.125 mg HS PO Last administered on 06/01/17 21:57; Admin Dose 0.125 MG; Start 06/01/17 at 21:00 Rivastigmine Tartrate (Exelon 4.6 Mg/ 24 Hr Patch) 1 patch DAILY TRANSDERM Last administered on 06/03/17 09:54; Admin Dose 1 PATCH; Start 06/02/17 at 09: 00 Silver Sulfadiazine (Thermazene 1% 25 Gm) 1 applic DAILY TOP ; Start 06/02/17 at 09:00 Tamsulosin HCl (Flomax) 0.4 mg HS PO Last administered on 06/01/17 21:57; Admin Dose 0.4 MG; Start 06/01/17 at 21:00 Pantoprazole 40 mg 40 mg DAILY@06 PO ; Start 06/02/17 at 06:00 Piperacillin Sod/ Tazobactam Sod 50 ml @ 100 mls/hr Q6 IVPB Last administered on 06/03/17 12:01; Admin Dose 100 MLS/HR; Start 06/01/17 at 18:00 Vancomycin HCl/ Sodium Chloride (Vancocin/NS) 150 ml @ 75 mls/hr Q48H IVPB Last administered on 06/03/17 09:59; Admin Dose 75 MLS/HR; Start 06/03/17 at 09 :00 Tramadol HCl 50 mg 50 mg Q6H PRN PO PAIN Last administered on 06/02/17 20:36; Admin Dose 50 MG; Start 06/01/17 at 22:00 Dextrose (D5W) 1,000 ml @ 75 mls/hr [id number] IV Last administered on 06/02/17 23:40; Admin Dose 75 MLS/HR; Start 06/02/17 at 10:00 CALVIN MCKENZIE Jun 03, 2017 12:40
--- NOTE | 2017-06-03 14:27 | CONS ---
Date/Time of Note Date/Time of Note DATE: 06/03/17 TIME: 14:24 Consult Date/Type/Reason Admit Date/Time Jun 01, 2017 at 09:07 Initial Consult Date 06/01/17 Type of Consultation: cardiology Ordering Provider: RAVINDRA BOYER MD Subjective cardiology follow up d/w daughter. D/W staff and rhythm was reviewed. pt remains in NSR but has had short episodes of NSVT. pt remains nonverbal. + cough pt is not eating . OBJECTIVE: General: thin man in no resp distress HEENT: NC/AT. pupils are equal. round. NECK: NO JVD. no stridor. CV: RRR. systolic murmur grade III./; no gallop or rubs. PULM: +rhonchi right side mostly GI: SOFT, NT, ND, no rebound or guarding Extremity: no significant LE edema. no clubbing. neuro: awake but nonverbal. . moving all extremities. Psych: calm and pleasant rectal: deferred : normal male ECG reviewed personally NSR inf infarct. ant infarct age undetermined. CXR reviewed. focal infiltrate ECHO reviewed: 1. Normal left ventricular cavity size. Moderate concentric left ventricular hypertrophy. Severe left ventricular systolic dysfunction. Ejection fraction is visually estimated at 30 %. Abnormal Diastolic Function. These segments of the LV are hypokinetic basal anterior segment, mid anterior segment, apical anterior segment. , anterolateral mid segment. , apical lateral segment. , inferior apex segment, inferior mid segment, inferoseptum mid segment. , anteroseptum mid segment, apex. and apical septum. 2. There is mild enlargement of left atrium. 3. Mitral valve is not well visualized. Mitral valve leaflets appear mildly thickened. Severe mitral annular calcification. Trace mitral regurgitation. 4. Aortic valve not well visualized. Aortic cusps appear mildly calcified. Trace to mild aortic valve regurgitation. 5. Normal appearance of the tricuspid valve. Estimated peak PA systolic pressure 40 mmHg. There is mild tricuspid regurgitation. 6. Normal size and normal respiratory collapse consistent with normal right atrial pressure. Objective Vital Signs Date Time Temp Pulse Resp B/P Pulse Ox O2 Delivery O2 Flow Rate FiO2 06/03/17 12:38 3.0 06/03/17 12:18 66 06/03/17 12:11 98.0 27 106/53 95 06/03/17 08:11 Nasal Cannula 06/02/17 23:18 40 Intake and Output 06/02/17 06/02/17 06/03/17 15:00 23:00 07:00 Intake Total 950 ml 1050 ml Balance 950 ml 1050 ml Results/Medications Result Diagram: 06/03/17 0716 06/03/17 0716 Results 24 hrs Laboratory Tests Test 06/02/17 19:12 06/03/17 07:16 Lactic Acid Level 1.1 White Blood Count 9.6 Red Blood Count 4.58 L Hemoglobin 13.1 L Hematocrit 42.5 Mean Corpuscular Volume 92.8 Mean Corpuscular Hemoglobin 28.6 L Mean Corpuscular Hemoglobin Concent 30.8 L Red Cell Distribution Width 12.8 Platelet Count 171 Mean Platelet Volume 11.3 H Neutrophils % 79.5 H Lymphocytes % 12.2 L Monocytes % 7.5 Eosinophils % 0.0 Basophils % 0.3 Nucleated Red Blood Cells % 0.0 Neutrophils # 7.7 H Lymphocytes # 1.2 Monocytes # 0.7 Eosinophils # 0.0 Basophils # 0.0 Nucleated Red Blood Cells # 0.0 Sodium Level 143 Potassium Level 4.8 Chloride Level 106 Carbon Dioxide Level 33 H Anion Gap 9 Blood Urea Nitrogen 51 H Creatinine 2.24 H Glucose Level 119 Calcium Level 8.6 Magnesium Level 2.3 Creatine Kinase 953 H Creatine Kinase Index 0.5 Creatinine Kinase MB (Mass) 4.29 H Troponin I 0.146 *H B-Type Natriuretic Peptide 60633 H Medications Current Medications Ondansetron HCl (Zofran Inj) 4 mg Q6H PRN IV NAUSEA AND/OR VOMITING; Start at 10:30 Acetaminophen (Tylenol Tab) 650 mg Q6H PRN PO PAIN LEVEL 1-3 OR FEVER Last administered on 06/02/17 08:59; Admin Dose 650 MG; Start 06/01/17 at 10:30 Acetaminophen/ Hydrocodone Bitart ([place] (5/325)) 1 tab Q6H PRN PO MODERATE PAIN LEVEL 4-6 Last administered on 06/01/17 11:44; Admin Dose 1 TAB; Start at 10:30 Morphine Sulfate (morphine) 2 mg Q4H PRN IV SEVERE PAIN LEVEL 7-10 Last administered on 06/02/17 23:34; Admin Dose 2 MG; Start 06/01/17 at 10:30 Docusate Sodium (Colace) 100 mg Q12H PRN PO CONSTIPATION; Start 06/01/17 at 10: 30 Magnesium Hydroxide (Milk Of Mag) 30 ml DAILY PRN PO CONSTIPATION; Start at 10:30 Sodium Biphosphate/ Sodium Phosphate (Fleet Enema) 133 ml DAILY PRN [place] CONSTIPATION; Start 06/01/17 at 10:30 Lorazepam (Ativan) 0.5 mg Q6H PRN IV ANXIETY Last administered on 06/02/17 12: 26; Admin Dose 0.5 MG; Start 06/01/17 at 10:30 Vancomycin HCl (Vanco Iv Per Pharmacy) VANCOMYCIN PER PHARMACY NOTE XX ; Start 06/01/17 at 10:30 Hydralazine HCl (Apresoline) 10 mg Q6H PRN IV ELEVATED BLOOD PRESSURE; Start at 10:30 Nitroglycerin (Nitroglycerin (Sl Tab) 0.4 Mg) 1 tab Q5M PRN SL ANGINA; Start at 10:30 Aspirin (Halfprin) 81 mg DAILY PO Last administered on 06/02/17 08:59; Admin Dose 81 MG; Start 06/02/17 at 09:00 Atorvastatin Calcium (Lipitor) 40 mg QHS PO Last administered on 06/01/17 21: 57; Admin Dose 40 MG; Start 06/01/17 at 21:00 Bisoprolol Fumarate (Zebeta) 10 mg DAILY PO Last administered on 06/02/17 09: 00; Admin Dose 10 MG; Start 06/02/17 at 09:00 Clopidogrel Bisulfate (plaVIX) 75 mg DAILY PO Last administered on 06/02/17 08 :59; Admin Dose 75 MG; Start 06/02/17 at 09:00 Dutasteride (Avodart) 0.5 mg DAILY PO Last administered on 06/02/17 08:58; Admin Dose 0.5 MG; Start 06/02/17 at 09:00 Pramipexole (Mirapex) 0.125 mg HS PO Last administered on 06/01/17 21:57; Admin Dose 0.125 MG; Start 06/01/17 at 21:00 Rivastigmine Tartrate (Exelon 4.6 Mg/ 24 Hr Patch) 1 patch DAILY TRANSDERM Last administered on 06/03/17 09:54; Admin Dose 1 PATCH; Start 06/02/17 at 09: 00 Silver Sulfadiazine (Thermazene 1% 25 Gm) 1 applic DAILY TOP ; Start 06/02/17 at 09:00 Tamsulosin HCl (Flomax) 0.4 mg HS PO Last administered on 06/01/17 21:57; Admin Dose 0.4 MG; Start 06/01/17 at 21:00 Pantoprazole 40 mg 40 mg DAILY@06 PO ; Start 06/02/17 at 06:00 Piperacillin Sod/ Tazobactam Sod 50 ml @ 100 mls/hr Q6 IVPB Last administered on 06/03/17 12:01; Admin Dose 100 MLS/HR; Start 06/01/17 at 18:00 Vancomycin HCl/ Sodium Chloride (Vancocin/NS) 150 ml @ 75 mls/hr Q48H IVPB Last administered on 06/03/17 09:59; Admin Dose 75 MLS/HR; Start 06/03/17 at 09 :00 Tramadol HCl 50 mg 50 mg Q6H PRN PO PAIN Last administered on 06/02/17 20:36; Admin Dose 50 MG; Start 06/01/17 at 22:00 Dextrose (D5W) 1,000 ml @ 75 mls/hr [id number] IV Last administered on 06/02/17 23:40; Admin Dose 75 MLS/HR; Start 06/02/17 at 10:00 Assessment/Plan Chief Complaint/Hosp Course Assessment: 1. abnormal ECG: but c/w old but not acute STEMI 2. pneumonia 3. most likely cardiomyopathy 4. HTN 5. hyper K 6. Renal failure; probably MAGDA 7. Dyslipidemia 8. hx CAD, CA 9. encephalopathy 10. smoker 11. hx etoh use 12. NSVT 13. abnormal trop with markedly elevated CK but not much elevation of CK-MB: c/ w false + trop from muscle release and NOT CA. Recommendations: CONT ASA/ Plavix abx as per IM off off ARB/ YUMIKO now due to MAGDA and hyper K. f/u renal consultations rec as well diuresis prn only. Fluid management as per renal [employer] as tolerated. tele monitoring Thank you for his referral. I will continue to follow along with you. JUAN HOLMAN Problems: JUAN HOLMAN MD Jun 03, 2017 14:27
[2017-06-03 15:21] LABS: PROTEIN/CREAT RATIO 0.84 RATIO
--- NOTE | 2017-06-03 18:55 | CONS ---
Date/Time of Note Date/Time of Note DATE: 06/03/17 TIME: 18:53 Consult Date/Type/Reason Admit Date/Time Jun 01, 2017 at 09:07 Initial Consult Date 06/01/17 Type of Consultation: Pulm Ordering Provider: RAVINDRA BOYER MD Subjective Non-verbal. No events. Objective Vital Signs Date Time Temp Pulse Resp B/P Pulse Ox O2 Delivery O2 Flow Rate FiO2 06/03/17 18:16 5.0 06/03/17 16:21 97.7 67 22 129/60 97 06/03/17 08:11 Nasal Cannula 06/02/17 23:18 40 Intake and Output 06/02/17 06/02/17 06/03/17 15:00 23:00 07:00 Intake Total 950 ml 1050 ml Balance 950 ml 1050 ml Exam HEENT: Neck supple; no JVD; no LAD CVS: RRR, S1 and S2 CHEST: Clear ABD: Soft, NT, + BS EXT: No c/c/e Results/Medications Result Diagram: 06/03/17 0716 06/03/17 0716 Results 24 hrs Laboratory Tests Test 06/02/17 19:12 06/03/17 07:16 06/03/17 10:00 Lactic Acid Level 1.1 White Blood Count 9.6 Red Blood Count 4.58 L Hemoglobin 13.1 L Hematocrit 42.5 Mean Corpuscular Volume 92.8 Mean Corpuscular Hemoglobin 28.6 L Mean Corpuscular Hemoglobin Concent 30.8 L Red Cell Distribution Width 12.8 Platelet Count 171 Mean Platelet Volume 11.3 H Neutrophils % 79.5 H Lymphocytes % 12.2 L Monocytes % 7.5 Eosinophils % 0.0 Basophils % 0.3 Nucleated Red Blood Cells % 0.0 Neutrophils # 7.7 H Lymphocytes # 1.2 Monocytes # 0.7 Eosinophils # 0.0 Basophils # 0.0 Nucleated Red Blood Cells # 0.0 Sodium Level 143 Potassium Level 4.8 Chloride Level 106 Carbon Dioxide Level 33 H Anion Gap 9 Blood Urea Nitrogen 51 H Creatinine 2.24 H Glucose Level 119 Calcium Level 8.6 Magnesium Level 2.3 Creatine Kinase 953 H Creatine Kinase Index 0.5 Creatinine Kinase MB (Mass) 4.29 H Troponin I 0.146 *H B-Type Natriuretic Peptide 22179 H Urine Random Creatinine 132.13 Urine Random Sodium 18 L Urine Protein/Creatinine Ratio 0.84 Urine Total Protein 112.0 H Medications Current Medications Ondansetron HCl (Zofran Inj) 4 mg Q6H PRN IV NAUSEA AND/OR VOMITING; Start at 10:30 Acetaminophen (Tylenol Tab) 650 mg Q6H PRN PO PAIN LEVEL 1-3 OR FEVER Last administered on 06/02/17 08:59; Admin Dose 650 MG; Start 06/01/17 at 10:30 Acetaminophen/ Hydrocodone Bitart ([place] (5/325)) 1 tab Q6H PRN PO MODERATE PAIN LEVEL 4-6 Last administered on 06/01/17 11:44; Admin Dose 1 TAB; Start at 10:30 Morphine Sulfate (morphine) 2 mg Q4H PRN IV SEVERE PAIN LEVEL 7-10 Last administered on 06/02/17 23:34; Admin Dose 2 MG; Start 06/01/17 at 10:30 Docusate Sodium (Colace) 100 mg Q12H PRN PO CONSTIPATION; Start 06/01/17 at 10: 30 Magnesium Hydroxide (Milk Of Mag) 30 ml DAILY PRN PO CONSTIPATION; Start at 10:30 Sodium Biphosphate/ Sodium Phosphate (Fleet Enema) 133 ml DAILY PRN [place] CONSTIPATION; Start 06/01/17 at 10:30 Lorazepam (Ativan) 0.5 mg Q6H PRN IV ANXIETY Last administered on 06/02/17 12: 26; Admin Dose 0.5 MG; Start 06/01/17 at 10:30 Vancomycin HCl (Vanco Iv Per Pharmacy) VANCOMYCIN PER PHARMACY NOTE XX ; Start 06/01/17 at 10:30 Hydralazine HCl (Apresoline) 10 mg Q6H PRN IV ELEVATED BLOOD PRESSURE; Start at 10:30 Nitroglycerin (Nitroglycerin (Sl Tab) 0.4 Mg) 1 tab Q5M PRN SL ANGINA; Start at 10:30 Aspirin (Halfprin) 81 mg DAILY PO Last administered on 06/02/17 08:59; Admin Dose 81 MG; Start 06/02/17 at 09:00 Atorvastatin Calcium (Lipitor) 40 mg QHS PO Last administered on 06/01/17 21: 57; Admin Dose 40 MG; Start 06/01/17 at 21:00 Bisoprolol Fumarate (Zebeta) 10 mg DAILY PO Last administered on 06/02/17 09: 00; Admin Dose 10 MG; Start 06/02/17 at 09:00 Clopidogrel Bisulfate (plaVIX) 75 mg DAILY PO Last administered on 06/02/17 08 :59; Admin Dose 75 MG; Start 06/02/17 at 09:00 Dutasteride (Avodart) 0.5 mg DAILY PO Last administered on 06/02/17 08:58; Admin Dose 0.5 MG; Start 06/02/17 at 09:00 Pramipexole (Mirapex) 0.125 mg HS PO Last administered on 06/01/17 21:57; Admin Dose 0.125 MG; Start 06/01/17 at 21:00 Rivastigmine Tartrate (Exelon 4.6 Mg/ 24 Hr Patch) 1 patch DAILY TRANSDERM Last administered on 06/03/17 09:54; Admin Dose 1 PATCH; Start 06/02/17 at 09: 00 Silver Sulfadiazine (Thermazene 1% 25 Gm) 1 applic DAILY TOP ; Start 06/02/17 at 09:00 Tamsulosin HCl (Flomax) 0.4 mg HS PO Last administered on 06/01/17 21:57; Admin Dose 0.4 MG; Start 06/01/17 at 21:00 Pantoprazole 40 mg 40 mg DAILY@06 PO ; Start 06/02/17 at 06:00 Piperacillin Sod/ Tazobactam Sod 50 ml @ 100 mls/hr Q6 IVPB Last administered on 06/03/17 18:19; Admin Dose 100 MLS/HR; Start 06/01/17 at 18:00 Vancomycin HCl/ Sodium Chloride (Vancocin/NS) 150 ml @ 75 mls/hr Q48H IVPB Last administered on 06/03/17 09:59; Admin Dose 75 MLS/HR; Start 06/03/17 at 09 :00 Tramadol HCl 50 mg 50 mg Q6H PRN PO PAIN Last administered on 06/02/17 20:36; Admin Dose 50 MG; Start 06/01/17 at 22:00 Dextrose (D5W) 1,000 ml @ 75 mls/hr [id number] IV Last administered on 9/16/17at 23:40; Admin Dose 75 MLS/HR; Start 06/02/17 at 10:00 Assessment/Plan Additional Assessment/Plan IMP: 1. 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 Azotemia 3. COPD RECS: 1. Minimize O2 to SpO2 88-92% 2. BDs 3. CS 4. Abx-> de-escalate VAMSI CONRAD MD Jun 03, 2017 18:55
[2017-06-03] MEDS: ATORVASTATIN 40 MG TAB PO SCH (21:01)
[2017-06-03] MEDS: TAMSULOSIN (SR) 0.4 MG CAP PO SCH (21:01)
[2017-06-03] MEDS: PRAMIPEXOLE 0.125 MG TAB PO SCH (21:02)
[2017-06-04] VITALS (14 sets, daily range): BP systolic 104–140; BP diastolic 45–81; PULSE 61–126; RESP 18–69
[2017-06-04] MEDS: PANTOPRAZOLE (EC) 40 MG TAB PO SCH (05:46)
[2017-06-04] MEDS: PIPER-TAZO 2.25 GM (PMX) 50 ML IVPB SCH ×3 (05:46→17:27)
--- NOTE | 2017-06-04 08:25 | CONS ---
Date/Time of Note Date/Time of Note DATE: 06/04/17 TIME: 08:22 Assessment/Plan Assessment/Plan Additional Assessment/Plan 1. Suspect the patient has underlying CKD sec to arteriolonrphrosclerosis as no change in Scr and proteinuira not impressive, u/a still pending, renal ultz was unrevealing, lopez was removed because of gu bleeding, will check bladder scan. 2. Altered mental status, ABG ordered, labs pending, ? CT brain. Consultation Date/Type/Reason Admit Date/Time Jun 01, 2017 at 09:07 Initial Consult Date 06/01/17 Type of Consultation: Pulm Referring Provider: RAVINDRA BOYER MD 24 HR Interval Summary Subjective hx not possible: other (agitated) Exam/Review of Systems Vital Signs Vitals Vital Signs Date Time Temp Pulse Resp B/P Pulse Ox O2 Delivery O2 Flow Rate FiO2 06/04/17 08:08 97.9 69 127/61 97 06/04/17 07:50 4.0 06/04/17 04:38 111 06/04/17 00:00 Nasal Cannula 06/02/17 23:18 40 Intake and Output 06/03/17 06/03/17 06/04/17 15:00 23:00 07:00 Intake Total 150 ml Output Total 200 ml Balance 150 ml -200 ml Exam Neck: No jvd Respiratory: diminished breath sounds, other (rhonhci bilat) Cardiovascular: regular rate and rhythm Gastrointestinal: soft Extremities: No edema Results Result Diagram: 06/03/17 0716 06/03/17 0716 Results 24 hrs Laboratory Tests Test 06/03/17 10:00 Urine Random Creatinine 132.13 Urine Random Sodium 18 L Urine Protein/Creatinine Ratio 0.84 Urine Total Protein 112.0 H Medications Medications Current Medications Ondansetron HCl (Zofran Inj) 4 mg Q6H PRN IV NAUSEA AND/OR VOMITING; Start at 10:30 Acetaminophen (Tylenol Tab) 650 mg Q6H PRN PO PAIN LEVEL 1-3 OR FEVER Last administered on 06/02/17 08:59; Admin Dose 650 MG; Start 06/01/17 at 10:30 Acetaminophen/ Hydrocodone Bitart ([place] (5/325)) 1 tab Q6H PRN PO MODERATE PAIN LEVEL 4-6 Last administered on 06/01/17 11:44; Admin Dose 1 TAB; Start at 10:30 Morphine Sulfate (morphine) 2 mg Q4H PRN IV SEVERE PAIN LEVEL 7-10 Last administered on 06/02/17 23:34; Admin Dose 2 MG; Start 06/01/17 at 10:30 Docusate Sodium (Colace) 100 mg Q12H PRN PO CONSTIPATION; Start 06/01/17 at 10: 30 Magnesium Hydroxide (Milk Of Mag) 30 ml DAILY PRN PO CONSTIPATION; Start at 10:30 Sodium Biphosphate/ Sodium Phosphate (Fleet Enema) 133 ml DAILY PRN [place] CONSTIPATION; Start 06/01/17 at 10:30 Lorazepam (Ativan) 0.5 mg Q6H PRN IV ANXIETY Last administered on 06/02/17 12: 26; Admin Dose 0.5 MG; Start 06/01/17 at 10:30 Vancomycin HCl (Vanco Iv Per Pharmacy) VANCOMYCIN PER PHARMACY NOTE XX ; Start 06/01/17 at 10:30 Hydralazine HCl (Apresoline) 10 mg Q6H PRN IV ELEVATED BLOOD PRESSURE; Start at 10:30 Nitroglycerin (Nitroglycerin (Sl Tab) 0.4 Mg) 1 tab Q5M PRN SL ANGINA; Start at 10:30 Aspirin (Halfprin) 81 mg DAILY PO Last administered on 06/02/17 08:59; Admin Dose 81 MG; Start 06/02/17 at 09:00 Atorvastatin Calcium (Lipitor) 40 mg QHS PO Last administered on 06/03/17 21: 01; Admin Dose 40 MG; Start 06/01/17 at 21:00 Bisoprolol Fumarate (Zebeta) 10 mg DAILY PO Last administered on 06/02/17 09: 00; Admin Dose 10 MG; Start 06/02/17 at 09:00 Clopidogrel Bisulfate (plaVIX) 75 mg DAILY PO Last administered on 06/02/17 08 :59; Admin Dose 75 MG; Start 06/02/17 at 09:00 Dutasteride (Avodart) 0.5 mg DAILY PO Last administered on 06/02/17 08:58; Admin Dose 0.5 MG; Start 06/02/17 at 09:00 Pramipexole (Mirapex) 0.125 mg HS PO Last administered on 06/03/17 21:02; Admin Dose 0.125 MG; Start 06/01/17 at 21:00 Rivastigmine Tartrate (Exelon 4.6 Mg/ 24 Hr Patch) 1 patch DAILY TRANSDERM Last administered on 06/03/17 09:54; Admin Dose 1 PATCH; Start 06/02/17 at 09: 00 Silver Sulfadiazine (Thermazene 1% 25 Gm) 1 applic DAILY TOP ; Start 06/02/17 at 09:00 Tamsulosin HCl (Flomax) 0.4 mg HS PO Last administered on 06/03/17 21:01; Admin Dose 0.4 MG; Start 06/01/17 at 21:00 Pantoprazole 40 mg 40 mg DAILY@06 PO ; Start 06/02/17 at 06:00 Piperacillin Sod/ Tazobactam Sod 50 ml @ 100 mls/hr Q6 IVPB Last administered on 06/04/17 05:46; Admin Dose 100 MLS/HR; Start 06/01/17 at 18:00 Vancomycin HCl/ Sodium Chloride (Vancocin/NS) 150 ml @ 75 mls/hr Q48H IVPB Last administered on 06/03/17 09:59; Admin Dose 75 MLS/HR; Start 06/03/17 at 09 :00 Tramadol HCl 50 mg 50 mg Q6H PRN PO PAIN Last administered on 06/02/17 20:36; Admin Dose 50 MG; Start 06/01/17 at 22:00 Dextrose (D5W) 1,000 ml @ 75 mls/hr [id number] IV Last administered on 06/03/17 20:31; Admin Dose 75 MLS/HR; Start 06/02/17 at 10:00 RADHA FELICIANO MD Jun 04, 2017 08:25
[2017-06-04] MEDS: RIVASTIGMINE 4.6MG/24H PATCH TRANSDERM SCH (08:58)
[2017-06-04] MEDS: DUTASTERIDE 0.5 MG CAP PO SCH (08:58)
[2017-06-04] MEDS: BISOPROLOL 5 MG TAB PO SCH (08:59)
[2017-06-04] MEDS: ASPIRIN (EC) 81 MG TAB PO SCH (08:59)
[2017-06-04] MEDS: CLOPIDOGREL 75 MG TAB PO SCH (08:59)
[2017-06-04] MEDS: SILVER SULFADIAZINE 1% 25 GM CR TOP SCH (09:00)
[2017-06-04 09:12] LABS: AADO2 Arterial 80.4 mmHg (7.0-24.0); Allen Test ACCEPTAB; Arterial Base Excess -0.6 mmol/L (-3.0-3); Arterial COHb 0.8 % (0.0-3.0); Arterial Fraction of Oxyhgb 93.9 % (93.0-99.0); Arterial HCO3 26.1 mmol/L (22.0-26.0); Arterial MetHb 0.3 % (0.0-1.5); Arterial Total Hemglobin 14.6 g/dl (12.0-18.0); MODE NASAL CANNULA
--- NOTE | 2017-06-04 10:29 | CONS ---
Date/Time of Note Date/Time of Note DATE: 06/04/17 TIME: 10:27 Assessment/Plan Assessment/Plan Additional Assessment/Plan Assessment and recommendations; 1. Patient admitted with COPD exacerbation with hypercapnia with interval improvement. 2. Likely right lower lobe pneumonia. 3. Mild thrombocytopenia 4. Renal insufficiency. Continue current supportive care. Consultation Date/Type/Reason Admit Date/Time Jun 01, 2017 at 09:07 Initial Consult Date 06/01/17 Type of Consultation: Pulm Referring Provider: RAVINDRA BOYER MD 24 HR Interval Summary Free Text/Dictation Patient condition stable. Remains awake and alert. Denies any shortness of breath. Any coughing. General exam; elderly male, awake, currently in no distress. Exam/Review of Systems Vital Signs Vitals Vital Signs Date Time Temp Pulse Resp B/P Pulse Ox O2 Delivery O2 Flow Rate FiO2 06/04/17 08:36 126 06/04/17 08:08 97.9 69 127/61 97 06/04/17 07:50 4.0 06/04/17 00:00 Nasal Cannula 06/02/17 23:18 40 Intake and Output 06/03/17 06/03/17 06/04/17 15:00 23:00 07:00 Intake Total 150 ml Output Total 200 ml Balance 150 ml -200 ml Exam HEENT exam; supple neck, there is a right intraocular lens implant. No neck masses. No thyromegaly. Pharynx is clear. Chest exam; bilateral mild crackles. S1-S2 audible, no murmurs. Regular rhythm. Abdomen exam; soft, no organomegaly. Bowel sounds audible. Nontender. Extremity exam; no peripheral edema. LICENSED MORTICIAN exam; no focal deficit. Results Result Diagram: 06/03/17 0716 06/03/17 0716 Results 24 hrs Laboratory Tests Test 06/04/17 08:30 Blood Gas Specimen Source Blood arterial Arterial Blood Date Drawn 06/04/2017 9:02:34 AM Arterial Blood pH (Temp corrected) 7.329 L Arterial Blood pCO2 (Temp correct) 50.7 H Arterial Blood pO2 (Temp corrected) 73.9 L Arterial Blood HCO3 26.1 H Arterial Blood Base Excess -0.6 Arterial Blood Oxygen Saturation 94.9 L Rishabh Test ACCEPTAB Arterial Blood Gas Puncture Site Left Radial Arterial Blood Carboxyhemoglobin 0.8 Arterial Blood Methemoglobin 0.3 Blood Gas A-a O2 Differential 80.4 H Oxyhemoglobin Percent 93.9 Total Hemoglobin 14.6 Blood Gas Temperature 37.0 Blood Gas Modality NASAL CANNULA FiO2 30.0 Blood Gas Notified Whom JLD Blood Gas Notified Time 06/04/2017 9:12:14 AM Medications Medications Current Medications Ondansetron HCl (Zofran Inj) 4 mg Q6H PRN IV NAUSEA AND/OR VOMITING; Start at 10:30 Acetaminophen (Tylenol Tab) 650 mg Q6H PRN PO PAIN LEVEL 1-3 OR FEVER Last administered on 06/02/17 08:59; Admin Dose 650 MG; Start 06/01/17 at 10:30 Acetaminophen/ Hydrocodone Bitart ([place] (5/325)) 1 tab Q6H PRN PO MODERATE PAIN LEVEL 4-6 Last administered on 06/01/17 11:44; Admin Dose 1 TAB; Start at 10:30 Morphine Sulfate (morphine) 2 mg Q4H PRN IV SEVERE PAIN LEVEL 7-10 Last administered on 06/02/17 23:34; Admin Dose 2 MG; Start 06/01/17 at 10:30 Docusate Sodium (Colace) 100 mg Q12H PRN PO CONSTIPATION; Start 06/01/17 at 10: 30 Magnesium Hydroxide (Milk Of Mag) 30 ml DAILY PRN PO CONSTIPATION; Start at 10:30 Sodium Biphosphate/ Sodium Phosphate (Fleet Enema) 133 ml DAILY PRN [place] CONSTIPATION; Start 06/01/17 at 10:30 Lorazepam (Ativan) 0.5 mg Q6H PRN IV ANXIETY Last administered on 06/02/17 12: 26; Admin Dose 0.5 MG; Start 06/01/17 at 10:30 Vancomycin HCl (Vanco Iv Per Pharmacy) VANCOMYCIN PER PHARMACY NOTE XX ; Start 06/01/17 at 10:30 Hydralazine HCl (Apresoline) 10 mg Q6H PRN IV ELEVATED BLOOD PRESSURE; Start at 10:30 Nitroglycerin (Nitroglycerin (Sl Tab) 0.4 Mg) 1 tab Q5M PRN SL ANGINA; Start at 10:30 Aspirin (Halfprin) 81 mg DAILY PO Last administered on 06/02/17 08:59; Admin Dose 81 MG; Start 06/02/17 at 09:00 Atorvastatin Calcium (Lipitor) 40 mg QHS PO Last administered on 06/03/17 21: 01; Admin Dose 40 MG; Start 06/01/17 at 21:00 Bisoprolol Fumarate (Zebeta) 10 mg DAILY PO Last administered on 06/02/17 09: 00; Admin Dose 10 MG; Start 06/02/17 at 09:00 Clopidogrel Bisulfate (plaVIX) 75 mg DAILY PO Last administered on 06/02/17 08 :59; Admin Dose 75 MG; Start 06/02/17 at 09:00 Dutasteride (Avodart) 0.5 mg DAILY PO Last administered on 06/02/17 08:58; Admin Dose 0.5 MG; Start 06/02/17 at 09:00 Pramipexole (Mirapex) 0.125 mg HS PO Last administered on 06/03/17 21:02; Admin Dose 0.125 MG; Start 06/01/17 at 21:00 Rivastigmine Tartrate (Exelon 4.6 Mg/ 24 Hr Patch) 1 patch DAILY TRANSDERM Last administered on 06/04/17 08:58; Admin Dose 1 PATCH; Start 06/02/17 at 09: 00 Silver Sulfadiazine (Thermazene 1% 25 Gm) 1 applic DAILY TOP ; Start 06/02/17 at 09:00 Tamsulosin HCl (Flomax) 0.4 mg HS PO Last administered on 06/03/17 21:01; Admin Dose 0.4 MG; Start 06/01/17 at 21:00 Pantoprazole 40 mg 40 mg DAILY@06 PO ; Start 06/02/17 at 06:00 Piperacillin Sod/ Tazobactam Sod 50 ml @ 100 mls/hr Q6 IVPB Last administered on 06/04/17 05:46; Admin Dose 100 MLS/HR; Start 06/01/17 at 18:00 Vancomycin HCl/ Sodium Chloride (Vancocin/NS) 150 ml @ 75 mls/hr Q48H IVPB Last administered on 06/03/17 09:59; Admin Dose 75 MLS/HR; Start 06/03/17 at 09 :00 Tramadol HCl 50 mg 50 mg Q6H PRN PO PAIN Last administered on 06/02/17 20:36; Admin Dose 50 MG; Start 06/01/17 at 22:00 Dextrose (D5W) 1,000 ml @ 75 mls/hr [id number] IV Last administered on 06/03/17 20:31; Admin Dose 75 MLS/HR; Start 06/02/17 at 10:00 FRANSICO KAM Jun 04, 2017 10:29
[2017-06-04 10:32] LABS: BASOPHILS % 0.3 % (0.0-2.0); EOSINOPHILS % 0.1 % (0.0-7.0); HEMATOCRIT 43.9 % (42.0-52.0); HEMOGLOBIN 13.5 g/dl (14.0-18.0); LYMPHOCYTES # 1.1 10^3/ul (0.8-2.9); MEAN CORPUSCULAR HEMOGLOBIN 28.3 pg (29.0-33.0); MEAN CORPUSCULAR HGB CONC 30.8 g/dl (32.0-37.0); MEAN PLATELET VOLUME 11.5 fl (7.4-10.4); MONOCYTE # 0.7 10^3/ul (0.3-0.9); MONOCYTES % 7.6 % (0.0-11.0); NEUTROPHIL # 7.2 10^3/ul (1.6-7.5); NEUTROPHILS % 79.7 % (39.0-77.0); PLATELET COUNT 174 10^3/UL (140-415); RED BLOOD COUNT 4.77 10^6/ul (4.70-6.10); RED CELL DISTRIBUTION WIDTH 12.5 % (11.5-14.5); WHITE BLOOD COUNT 9.1 10^3/ul (4.8-10.8)
[2017-06-04 10:54] LABS: CALCIUM 8.5 mg/dl (8.4-10.2); CREATININE 1.91 mg/dl (0.61-1.24); POTASSIUM 4.3 mmol/L (3.5-5.1)
[2017-06-04] MEDS: DEXTROSE 5% 1,000 ML IV SCH (11:26)
--- NOTE | 2017-06-04 11:45 | HP ---
DATE OF ADMISSION: 06/01/2017 CHIEF COMPLAINT: This is an 86-year-old male with chief complaint of shortness of breath and fever. HISTORY OF PRESENT ILLNESS: An 86-year-old male with past medical history, based on records, of cardiomyopathy, valvular heart disease, former smoker, alcohol use, high cholesterol, CAD with questionable heart attack in the past, who again was brought in via EMS for shortness of breath. Most of the information was obtained from the ER doctor the patient is presently unable to provide history secondary to language barrier. Apparently at home, he was having weakness, symptoms of fever, subjective fevers, and also some confusion over the last 2-3 days. He is also having a productive cough of yellow sputum. No upper or lower GI bleeding. No diarrhea or constipation. No nausea or vomiting. When he was brought in to the emergency room, he was found with an oxygen saturation in the low 80s. He was given a breathing treatment as well. He had a CBC. The white blood cell count was normal, but the chest x-ray did show some evidence of focal right lower lung consolidation or infiltrate as well as cardiomegaly, and there was also an elevation in the BNP of 32,000. His lactic acid was elevated at 2.2. He also had signs of renal insufficiency. His creatinine was 2.39. When the patient came in, he was also found with a fever of 102.5. PAST MEDICAL HISTORY: As stated above. ALLERGIES: NO KNOWN ALLERGIES. HOME MEDICATIONS: Exelon patch transdermal daily, Flomax 0.4 mg q.h.s., Spiriva 18 mcg inhaled daily, Plavix 75 mg daily, atorvastatin , bisoprolol 10 mg daily, Diovan 320 mg daily, aspirin 81 mg daily, pramipexole 0.125 mg nightly, Lasix 40 mg daily, K-Dur 10 mEq daily, Nexium 40 mg daily, daily, Avodart 0.5 mg daily. PAST SURGICAL HISTORY: None. FAMILY HISTORY: Noncontributory. SOCIAL HISTORY: Negative for alcohol drug abuse, but positive smoking history, 1 pack a day, unclear for how long. PHYSICAL EXAMINATION: VITAL SIGNS: Today, T-max 102.5, pulse 100-107, respirations 13- 22. Blood pressure is 137-100 systolic over 85 now with saturation at 98 percent. GENERAL: the patient lying in bed, no acute distress. HEENT: Pupils equal, round, reactive to light. Extraocular muscles intact. NECK: Supple. No thyromegaly. LUNGS: distant breath sounds bilaterally with some odd crackles heard at the right base. CARDIAC: S1, S2 heard. No rubs or gallops. ABDOMEN: Soft, nontender, nondistended. Bowel sounds . MUSCULOSKELETAL: No lower extremity edema bilaterally. NEUROLOGIC: No focal deficits. LABORATORY DATA: CBC is completely normal. Lactic acid 2.2. Sodium 143, potassium 5.2, chloride 103, CO2 31, BUN 46, creatinine 2.39. Glucose 128. LFTs are normal. BNP 32,000. INR is 1.24. We mentioned the chest x-ray results. There was no UA performed. ASSESSMENT AND PLAN: An 86-year-old male coming in with shortness of breath and hypoxia, productive cough, with signs of sepsis secondary to pneumonia and mild lactic acidosis. 1. Shortness of breath and cough. Again, likely secondary to upper respiratory infection, pneumonia, and sepsis, so admit the patient to telemetry floor, put him on broad-spectrum antibiotics. Check TSH, A1c, lipid panel. Follow up final culture results, Tylenol p.r.n. pain and fevers. 2. History of cardiomyopathy. Again, his BNP is elevated at 32,000. Chest x-ray showed signs of infiltrate. We will get a 2D echocardiogram as well. Monitor ins and outs. 3. Renal insufficiency. Again, get a renal consult. Follow their recommendations as well. 4. Trend the lactic acid as well. 5. History of smoking. Consider nicotine patch. Counseled on cessation. 6. High cholesterol. Check lipid panel. 7. Coronary artery disease with prior history of myocardial infarction (OR). Continue aspirin and Plavix for now as well as Lipitor. Consider PT and OT consults as well. Get speech therapy consult. 8. History of valvular disease. Again, follow up echocardiogram results. Continue aspirin, Plavix, Lipitor. 9. Gastrointestinal prophylaxis, PPI. Dictated By: John Cerda MD /radha/natan /Document#: [id number]
[2017-06-04] MEDS: LORAZEPAM 2 MG INJ IV PRN (12:47)
--- NOTE | 2017-06-04 18:00 | PN ---
Date/Time of Note Date/Time of Note DATE: 06/04/17 TIME: 17:58 Assessment/Plan VTE Prophylaxis VTE Prophylaxis Intervention: SCD's Lines/Catheters IV Catheter Type (from Nrsg): Peripheral IV Assessment/Plan Assessment/Plan 86 yo M with dementia, chronic respiratory insuffiency admitted for SOB 2/2 HCAP and likely acute on chronic heart failure (EF 30%) also found to have MAGDA on CKD and NSTEMI #HCAP: cont abx, anticipate 7 day course. pt back on home O2 #MAGDA on CKD: renal on consult, Cr improving -stop IVFs given CHF hx #NSTEMI: likely from demand, cardiology following #HL, HTN, h/o CADL cont zetia, asa/plavix, home BP meds #AUR: sp lopez catheter placement then removal? ARU cs placed consider talking to family in AM to learn more abt pt's baseline mentation Exam/Review of Systems Vital Signs Vitals Vital Signs Date Time Temp Pulse Resp B/P Pulse Ox O2 Delivery O2 Flow Rate FiO2 06/04/17 16:14 71 06/04/17 16:07 98.1 18 140/66 92 06/04/17 08:00 Nasal Cannula 4.0 06/02/17 23:18 40 Intake and Output 06/03/17 06/03/17 06/04/17 14:59 22:59 06:59 Intake Total 150 ml Output Total 200 ml Balance 150 ml -200 ml Results Result Diagram: 06/04/17 0930 06/04/17 0930 Results 24 hrs Laboratory Tests Test 06/04/17 08:30 06/04/17 09:30 Blood Gas Specimen Source Blood arterial Arterial Blood Date Drawn 06/04/2017 9:02:34 AM Arterial Blood pH (Temp corrected) 7.329 L Arterial Blood pCO2 (Temp correct) 50.7 H Arterial Blood pO2 (Temp corrected) 73.9 L Arterial Blood HCO3 26.1 H Arterial Blood Base Excess -0.6 Arterial Blood Oxygen Saturation 94.9 L Rishabh Test ACCEPTAB Arterial Blood Gas Puncture Site Left Radial Arterial Blood Carboxyhemoglobin 0.8 Arterial Blood Methemoglobin 0.3 Blood Gas A-a O2 Differential 80.4 H Oxyhemoglobin Percent 93.9 Total Hemoglobin 14.6 Blood Gas Temperature 37.0 Blood Gas Modality NASAL CANNULA FiO2 30.0 Blood Gas Notified Whom JLD Blood Gas Notified Time 06/04/2017 9:12:14 AM White Blood Count 9.1 Red Blood Count 4.77 Hemoglobin 13.5 L Hematocrit 43.9 Mean Corpuscular Volume 92.0 Mean Corpuscular Hemoglobin 28.3 L Mean Corpuscular Hemoglobin Concent 30.8 L Red Cell Distribution Width 12.5 Platelet Count 174 Mean Platelet Volume 11.5 H Neutrophils % 79.7 H Lymphocytes % 12.0 L Monocytes % 7.6 Eosinophils % 0.1 Basophils % 0.3 Nucleated Red Blood Cells % 0.0 Neutrophils # 7.2 Lymphocytes # 1.1 Monocytes # 0.7 Eosinophils # 0.0 Basophils # 0.0 Nucleated Red Blood Cells # 0.0 Sodium Level 141 Potassium Level 4.3 Chloride Level 102 Carbon Dioxide Level 34 H Anion Gap 9 Blood Urea Nitrogen 44 H Creatinine 1.91 H Glucose Level 128 Calcium Level 8.5 Medications Medications Current Medications Ondansetron HCl (Zofran Inj) 4 mg Q6H PRN IV NAUSEA AND/OR VOMITING; Start at 10:30 Acetaminophen (Tylenol Tab) 650 mg Q6H PRN PO PAIN LEVEL 1-3 OR FEVER Last administered on 06/02/17 08:59; Admin Dose 650 MG; Start 06/01/17 at 10:30 Acetaminophen/ Hydrocodone Bitart ([place] (5/325)) 1 tab Q6H PRN PO MODERATE PAIN LEVEL 4-6 Last administered on 06/01/17 11:44; Admin Dose 1 TAB; Start at 10:30 Morphine Sulfate (morphine) 2 mg Q4H PRN IV SEVERE PAIN LEVEL 7-10 Last administered on 06/02/17 23:34; Admin Dose 2 MG; Start 06/01/17 at 10:30 Docusate Sodium (Colace) 100 mg Q12H PRN PO CONSTIPATION; Start 06/01/17 at 10: 30 Magnesium Hydroxide (Milk Of Mag) 30 ml DAILY PRN PO CONSTIPATION; Start at 10:30 Sodium Biphosphate/ Sodium Phosphate (Fleet Enema) 133 ml DAILY PRN [place] CONSTIPATION; Start 06/01/17 at 10:30 Lorazepam (Ativan) 0.5 mg Q6H PRN IV ANXIETY Last administered on 06/04/17 12: 47; Admin Dose 0.5 MG; Start 06/01/17 at 10:30 Vancomycin HCl (Vanco Iv Per Pharmacy) VANCOMYCIN PER PHARMACY NOTE XX ; Start 06/01/17 at 10:30 Hydralazine HCl (Apresoline) 10 mg Q6H PRN IV ELEVATED BLOOD PRESSURE; Start at 10:30 Nitroglycerin (Nitroglycerin (Sl Tab) 0.4 Mg) 1 tab Q5M PRN SL ANGINA; Start at 10:30 Aspirin (Halfprin) 81 mg DAILY PO Last administered on 06/02/17 08:59; Admin Dose 81 MG; Start 06/02/17 at 09:00 Atorvastatin Calcium (Lipitor) 40 mg QHS PO Last administered on 06/03/17 21: 01; Admin Dose 40 MG; Start 06/01/17 at 21:00 Bisoprolol Fumarate (Zebeta) 10 mg DAILY PO Last administered on 06/02/17 09: 00; Admin Dose 10 MG; Start 06/02/17 at 09:00 Clopidogrel Bisulfate (plaVIX) 75 mg DAILY PO Last administered on 06/02/17 08 :59; Admin Dose 75 MG; Start 06/02/17 at 09:00 Dutasteride (Avodart) 0.5 mg DAILY PO Last administered on 06/02/17 08:58; Admin Dose 0.5 MG; Start 06/02/17 at 09:00 Pramipexole (Mirapex) 0.125 mg HS PO Last administered on 06/03/17 21:02; Admin Dose 0.125 MG; Start 06/01/17 at 21:00 Rivastigmine Tartrate (Exelon 4.6 Mg/ 24 Hr Patch) 1 patch DAILY TRANSDERM Last administered on 06/04/17 08:58; Admin Dose 1 PATCH; Start 06/02/17 at 09: 00 Silver Sulfadiazine (Thermazene 1% 25 Gm) 1 applic DAILY TOP ; Start 06/02/17 at 09:00 Tamsulosin HCl (Flomax) 0.4 mg HS PO Last administered on 06/03/17 21:01; Admin Dose 0.4 MG; Start 06/01/17 at 21:00 Pantoprazole 40 mg 40 mg DAILY@06 PO ; Start 06/02/17 at 06:00 Piperacillin Sod/ Tazobactam Sod 50 ml @ 100 mls/hr Q6 IVPB Last administered on 06/04/17 17:27; Admin Dose 100 MLS/HR; Start 06/01/17 at 18:00 Vancomycin HCl/ Sodium Chloride (Vancocin/NS) 150 ml @ 75 mls/hr Q48H IVPB Last administered on 06/03/17 09:59; Admin Dose 75 MLS/HR; Start 06/03/17 at 09 :00 Tramadol HCl 50 mg 50 mg Q6H PRN PO PAIN Last administered on 06/02/17 20:36; Admin Dose 50 MG; Start 06/01/17 at 22:00 Dextrose (D5W) 1,000 ml @ 75 mls/hr [id number] IV Last administered on 06/04/17 11:26; Admin Dose 75 MLS/HR; Start 06/02/17 at 10:00 Miscellaneous Information (*Rx Drug Level Order Reminder*) 1 ONCE ONCE XX ; Start 06/05/17 at 08:00; Stop 06/05/17 at 08:01 CORINNA GONZALES MD Jun 04, 2017 18:00
[2017-06-04 18:42] LABS: ADD UMIC YES; UR ASCORBIC ACID NEGATIVE (NEGATIVE); UR BACTERIA FEW /HPF (NONE SEEN); UR BILIRUBIN (Dip) NEGATIVE (NEGATIVE); UR BLOOD (Dip) 3+ mg/dL (NEGATIVE); UR CLARITY SLIGHTLY CLOUDY (CLEAR); UR COLOR YELLOW (YELLOW); UR GLUCOSE (Dip) NEGATIVE (NEGATIVE); UR KETONES (Dip) NEGATIVE (NEGATIVE); UR LEUKOCYTE ESTERASE (Dip) NEGATIVE Leu/ul (NEGATIVE); UR NITRITE (Dip) NEGATIVE (NEGATIVE); UR RBC 51 /HPF (0-5); UR SPECIFIC GRAVITY (Dip) 1.019 (1.003-1.030); UR TOTAL PROTEIN (Dip) 2+ mg/dl (NEGATIVE); UR UROBILINOGEN (Dip) NEGATIVE (NEGATIVE)
--- NOTE | 2017-06-04 19:14 | RADRPT ---
PROCEDURE: MR Brain without contrast. CLINICAL INDICATION: CVA. TECHNIQUE: An MRI of the brain was performed on a 1.5 alexandra scanner utilizing the following sequen carmita: Sagittal T1 weighted, axial T2 weighted, axial FLAIR, coronal GRE, and axial diffusion weighted with ADC mapping. COMPARISON: None FINDINGS: Two sub-centimeter foci of restricted diffusion, along the right superior temporal gyrus and right p arietal lobe suggestive of micro embolic infarcts . There is no evidence of intracranial hemorrhage, mass effect, or midline shift. No extra-axial fluid collections are seen. Image degradation second geralidne to patient motion. No hypointense signal abnormalities are seen on the GRE images to suggest the presence of blood degr adation products. Scattered nonspecific FLAIR/T2 signal hyperintensity foci in the subcortical and p eriventricular white matter compatible with sequelae of mild chronic microvascular ischemic disease. The remaining brain parenchyma is grossly normal in signal and morphology with preservation of trimble white differentiation and moderate prominence of the ventricles and subarachnoid spaces compatible cerebral volume loss. Polypoid mucosal thickening in the right maxillary sinus extending through the right maxillary antrum. Right lens replacement surgery. The posterior fossa contents, brainstem, seventh - eighth cranial nerve complexes, pituitary axis, o rbits, paranasal sinuses, and mastoid air cells are unremarkable. Normal flow voids are visible in the proximal intracranial arteries and dural sinuses, indicating pa tency. IMPRESSION: 1. Two sub-centimeter foci of restricted diffusion, 1 within the right temporal and a second within the parietal lobe compatible with the acute / early subacute the lacunar infarcts likely micro embol ic. 2. No intracranial hemorrhage or other acute intracranial abnormality. 3. Mild chronic microvascular ischemic changes and cerebral volume loss. RPTAT: HH Physician Andrew Date Time Electronically viewed and signed by Physician Andrew on 06/04/2017 19:14 SAVANAH/
--- NOTE | 2017-06-04 20:51 | CONS ---
Date/Time of Note Date/Time of Note DATE: 06/04/17 TIME: 20:50 Consult Date/Type/Reason Admit Date/Time Jun 01, 2017 at 09:07 Initial Consult Date 06/01/17 Type of Consultation: CARDIOLOGY Ordering Provider: RAVINDRA BOYER MD Subjective cardiology follow up d/w SON D/W staff and rhythm was reviewed. pt remains in NSR pt remains nonverbal. pt is not eating . OBJECTIVE: General: thin man in no resp distress HEENT: NC/AT. pupils are equal. round. NECK: NO JVD. no stridor. CV: RRR. systolic murmur grade III./; no gallop or rubs. PULM: +rhonchi right side mostly GI: SOFT, NT, ND, no rebound or guarding Extremity: no significant LE edema. no clubbing. neuro: awake but nonverbal. . moving all extremities. Psych: calm and pleasant rectal: deferred : normal male ECG reviewed personally NSR inf infarct. ant infarct age undetermined. CXR reviewed. focal infiltrate ECHO reviewed: 1. Normal left ventricular cavity size. Moderate concentric left ventricular hypertrophy. Severe left ventricular systolic dysfunction. Ejection fraction is visually estimated at 30 %. Abnormal Diastolic Function. These segments of the LV are hypokinetic basal anterior segment, mid anterior segment, apical anterior segment. , anterolateral mid segment. , apical lateral segment. , inferior apex segment, inferior mid segment, inferoseptum mid segment. , anteroseptum mid segment, apex. and apical septum. 2. There is mild enlargement of left atrium. 3. Mitral valve is not well visualized. Mitral valve leaflets appear mildly thickened. Severe mitral annular calcification. Trace mitral regurgitation. 4. Aortic valve not well visualized. Aortic cusps appear mildly calcified. Trace to mild aortic valve regurgitation. 5. Normal appearance of the tricuspid valve. Estimated peak PA systolic pressure 40 mmHg. There is mild tricuspid regurgitation. 6. Normal size and normal respiratory collapse consistent with normal right atrial pressure. Objective Vital Signs Date Time Temp Pulse Resp B/P Pulse Ox O2 Delivery O2 Flow Rate FiO2 06/04/17 20:37 98.6 61 22 119/61 98 06/04/17 19:57 4.0 06/04/17 08:00 Nasal Cannula 06/02/17 23:18 40 Intake and Output 06/03/17 06/03/1706/04/17 15:00 23:00 07:00 Intake Total 150 ml Output Total 200 ml Balance 150 ml -200 ml Results/Medications Result Diagram: 06/04/17 0930 06/04/17 0930 Results 24 hrs Laboratory Tests Test 06/04/17 08:30 06/04/17 09:30 06/04/17 15:50 Blood Gas Specimen Source Blood arterial Arterial Blood Date Drawn 06/04/2017 9:02:34 AM Arterial Blood pH (Temp corrected) 7.329 L Arterial Blood pCO2 (Temp correct) 50.7 H Arterial Blood pO2 (Temp corrected) 73.9 L Arterial Blood HCO3 26.1 H Arterial Blood Base Excess -0.6 Arterial Blood Oxygen Saturation 94.9 L Rishabh Test ACCEPTAB Arterial Blood Gas Puncture Site Left Radial Arterial Blood Carboxyhemoglobin 0.8 Arterial Blood Methemoglobin 0.3 Blood Gas A-a O2 Differential 80.4 H Oxyhemoglobin Percent 93.9 Total Hemoglobin 14.6 Blood Gas Temperature 37.0 Blood Gas Modality NASAL CANNULA FiO2 30.0 Blood Gas Notified Whom JLD Blood Gas Notified Time 06/04/2017 9:12:14 AM White Blood Count 9.1 Red Blood Count 4.77 Hemoglobin 13.5 L Hematocrit 43.9 Mean Corpuscular Volume 92.0 Mean Corpuscular Hemoglobin 28.3 L Mean Corpuscular Hemoglobin Concent 30.8 L Red Cell Distribution Width 12.5 Platelet Count 174 Mean Platelet Volume 11.5 H Neutrophils % 79.7 H Lymphocytes % 12.0 L Monocytes % 7.6 Eosinophils % 0.1 Basophils % 0.3 Nucleated Red Blood Cells % 0.0 Neutrophils # 7.2 Lymphocytes # 1.1 Monocytes # 0.7 Eosinophils # 0.0 Basophils # 0.0 Nucleated Red Blood Cells # 0.0 Sodium Level 141 Potassium Level 4.3 Chloride Level 102 Carbon Dioxide Level 34 H Anion Gap 9 Blood Urea Nitrogen 44 H Creatinine 1.91 H Glucose Level 128 Calcium Level 8.5 Urine Color YELLOW Urine Clarity SLIGHTLY CLOUDY A Urine pH 5.0 Urine Specific [place] 1.019 Urine Ketones NEGATIVE Urine Nitrite NEGATIVE Urine Bilirubin NEGATIVE Urine Urobilinogen NEGATIVE Urine Leukocyte Esterase NEGATIVE Urine Microscopic RBC 51 H Urine Microscopic WBC 5 Urine Bacteria FEW A Urine Hemoglobin 3+ H Urine Glucose NEGATIVE Urine Total Protein 2+ H Medications Current Medications Ondansetron HCl (Zofran Inj) 4 mg Q6H PRN IV NAUSEA AND/OR VOMITING; Start at 10:30 Acetaminophen (Tylenol Tab) 650 mg Q6H PRN PO PAIN LEVEL 1-3 OR FEVER Last administered on 06/02/17 08:59; Admin Dose 650 MG; Start 06/01/17 at 10:30 Acetaminophen/ Hydrocodone Bitart ([place] (5/325)) 1 tab Q6H PRN PO MODERATE PAIN LEVEL 4-6 Last administered on 06/01/17 11:44; Admin Dose 1 TAB; Start at 10:30 Morphine Sulfate (morphine) 2 mg Q4H PRN IV SEVERE PAIN LEVEL 7-10 Last administered on 06/02/17 23:34; Admin Dose 2 MG; Start 06/01/17 at 10:30 Docusate Sodium (Colace) 100 mg Q12H PRN PO CONSTIPATION; Start 06/01/17 at 10: 30 Magnesium Hydroxide (Milk Of Mag) 30 ml DAILY PRN PO CONSTIPATION; Start at 10:30 Sodium Biphosphate/ Sodium Phosphate (Fleet Enema) 133 ml DAILY PRN [place] CONSTIPATION; Start 06/01/17 at 10:30 Vancomycin HCl (Vanco Iv Per Pharmacy) VANCOMYCIN PER PHARMACY NOTE XX ; Start 06/01/17 at 10:30 Nitroglycerin (Nitroglycerin (Sl Tab) 0.4 Mg) 1 tab Q5M PRN SL ANGINA; Start at 10:30 Aspirin (Halfprin) 81 mg DAILY PO Last administered on 06/02/17 08:59; Admin Dose 81 MG; Start 06/02/17 at 09:00 Atorvastatin Calcium (Lipitor) 40 mg QHS PO Last administered on 06/03/17 21: 01; Admin Dose 40 MG; Start 06/01/17 at 21:00 Bisoprolol Fumarate (Zebeta) 10 mg DAILY PO Last administered on 06/02/17 09: 00; Admin Dose 10 MG; Start 06/02/17 at 09:00 Clopidogrel Bisulfate (plaVIX) 75 mg DAILY PO Last administered on 06/02/17 08 :59; Admin Dose 75 MG; Start 06/02/17 at 09:00 Dutasteride (Avodart) 0.5 mg DAILY PO Last administered on 06/02/17 08:58; Admin Dose 0.5 MG; Start 06/02/17 at 09:00 Pramipexole (Mirapex) 0.125 mg HS PO Last administered on 06/03/17 21:02; Admin Dose 0.125 MG; Start 06/01/17 at 21:00 Rivastigmine Tartrate (Exelon 4.6 Mg/ 24 Hr Patch) 1 patch DAILY TRANSDERM Last administered on 06/04/17 08:58; Admin Dose 1 PATCH; Start 06/02/17 at 09: 00 Silver Sulfadiazine (Thermazene 1% 25 Gm) 1 applic DAILY TOP ; Start 06/02/17 at 09:00 Tamsulosin HCl (Flomax) 0.4 mg HS PO Last administered on 06/03/17 21:01; Admin Dose 0.4 MG; Start 06/01/17 at 21:00 Pantoprazole 40 mg 40 mg DAILY@06 PO ; Start 06/02/17 at 06:00 Piperacillin Sod/ Tazobactam Sod 50 ml @ 100 mls/hr Q6 IVPB Last administered on 06/04/17 17:27; Admin Dose 100 MLS/HR; Start 06/01/17 at 18:00 Vancomycin HCl/ Sodium Chloride (Vancocin/NS) 150 ml @ 75 mls/hr Q48H IVPB Last administered on 06/03/17 09:59; Admin Dose 75 MLS/HR; Start 06/03/17 at 09 :00 Tramadol HCl (Ultram) 50 mg Q6H PRN PO PAIN Last administered on 06/02/17 20: 36; Admin Dose 50 MG; Start 06/01/17 at 22:00 Miscellaneous Information (*Rx Drug Level Order Reminder*) 1 ONCE ONCE XX ; Start 06/05/17 at 08:00; Stop 06/05/17 at 08:01 Assessment/Plan Chief Complaint/Hosp Course Assessment: 1. abnormal ECG: but c/w old but not acute STEMI 2. pneumonia 3. most likely cardiomyopathy 4. HTN 5. hyper K 6. Renal failure; probably MAGDA 7. Dyslipidemia 8. hx CAD, GA 9. encephalopathy 10. smoker 11. hx etoh use 12. NSVT 13. abnormal trop with markedly elevated CK but not much elevation of CK-MB: c/ w false + trop from muscle release and NOT GA. 14. CVA Recommendations: CONT ASA/ Plavix abx as per IM off off ARB/ YUMIKO now due to MAGDA and hyper K. f/u renal consultations rec as well diuresis prn only. Fluid management as per renal [employer] as tolerated. tele monitoring Thank you for his referral. I will continue to follow along with you. JUAN HOLMAN Problems: JUAN HOLMAN MD Jun 04, 2017 20:51
[2017-06-04] MEDS: PRAMIPEXOLE 0.125 MG TAB PO SCH ×2 (21:51→22:00)
[2017-06-04] MEDS: TAMSULOSIN (SR) 0.4 MG CAP PO SCH ×2 (21:51→22:00)
[2017-06-04] MEDS: ATORVASTATIN 40 MG TAB PO SCH ×2 (21:51→22:00)
[2017-06-05] VITALS (11 sets, daily range): BP systolic 95–159; BP diastolic 51–69; PULSE 60–69; RESP 17–20
[2017-06-05] MEDS: PIPER-TAZO 2.25 GM (PMX) 50 ML IVPB SCH ×4 (00:11→17:33)
[2017-06-05] MEDS: PANTOPRAZOLE (EC) 40 MG TAB PO SCH (06:00)
--- NOTE | 2017-06-05 08:27 | CONS ---
Date/Time of Note Date/Time of Note DATE: 06/05/17 TIME: 08:24 Assessment/Plan Assessment/Plan Additional Assessment/Plan 1. Renal Fx has improved. I asked the staffing branch manager to again check post void residual. 2. Cognition improved, MRI noted->acute injury, ?embolic, await cards comments, carotid study needed ?, Ht echo noted. 3. Upper respiratory infection 4. COPD 5. Will gladly see again on request. Consultation Date/Type/Reason Admit Date/Time Jun 01, 2017 at 09:07 Initial Consult Date 06/01/17 Type of Consultation: CARDIOLOGY Referring Provider: RAVINDRA BOYER MD 24 HR Interval Summary Subjective hx not possible: other (Son is at bedside and indicated to me his dad looks better and feels better.) Detailed Summary Cardiovascular: No chest pain Gastrointestinal: no complaints Genitourinary: other (condom catheter in place) Exam/Review of Systems Vital Signs Vitals Vital Signs Date Time Temp Pulse Resp B/P Pulse Ox O2 Delivery O2 Flow Rate FiO2 06/05/17 07:51 98.2 68 18 119/55 96 06/05/17 04:00 Nasal Cannula 4.0 06/02/17 23:18 40 Intake and Output 06/04/17 06/04/17 06/05/17 15:00 23:00 07:00 Intake Total 890 ml 100 ml Output Total 400 ml Balance 490 ml 100 ml Exam Neck: No jvd Respiratory: clear to auscultation, diminished breath sounds Cardiovascular: regular rate and rhythm Gastrointestinal: soft Extremities: No edema (and no calf tend) Results Result Diagram: 06/04/1730 06/04/17 0930 Results 24 hrs Laboratory Tests Test 06/04/17 08:30 06/04/17 09:30 06/04/17 15:50 Blood Gas Specimen Source Blood arterial Arterial Blood Date Drawn 06/04/2017 9:02:34 AM Arterial Blood pH (Temp corrected) 7.329 L Arterial Blood pCO2 (Temp correct) 50.7 H Arterial Blood pO2 (Temp corrected) 73.9 L Arterial Blood HCO3 26.1 H Arterial Blood Base Excess -0.6 Arterial Blood Oxygen Saturation 94.9 L Rishabh Test ACCEPTAB Arterial Blood Gas Puncture Site Left Radial Arterial Blood Carboxyhemoglobin 0.8 Arterial Blood Methemoglobin 0.3 Blood Gas A-a O2 Differential 80.4 H Oxyhemoglobin Percent 93.9 Total Hemoglobin 14.6 Blood Gas Temperature 37.0 Blood Gas Modality NASAL CANNULA FiO2 30.0 Blood Gas Notified Whom JLD Blood Gas Notified Time 06/04/2017 9:12:14 AM White Blood Count 9.1 Red Blood Count 4.77 Hemoglobin 13.5 L Hematocrit 43.9 Mean Corpuscular Volume 92.0 Mean Corpuscular Hemoglobin 28.3 L Mean Corpuscular Hemoglobin Concent 30.8 L Red Cell Distribution Width 12.5 Platelet Count 174 Mean Platelet Volume 11.5 H Neutrophils % 79.7 H Lymphocytes % 12.0 L Monocytes % 7.6 Eosinophils % 0.1 Basophils % 0.3 Nucleated Red Blood Cells % 0.0 Neutrophils # 7.2 Lymphocytes # 1.1 Monocytes # 0.7 Eosinophils # 0.0 Basophils # 0.0 Nucleated Red Blood Cells # 0.0 Sodium Level 141 Potassium Level 4.3 Chloride Level 102 Carbon Dioxide Level 34 H Anion Gap 9 Blood Urea Nitrogen 44 H Creatinine 1.91 H Glucose Level 128 Calcium Level 8.5 Urine Color YELLOW Urine Clarity SLIGHTLY CLOUDY A Urine pH 5.0 Urine Specific [place] 1.019 Urine Ketones NEGATIVE Urine Nitrite NEGATIVE Urine Bilirubin NEGATIVE Urine Urobilinogen NEGATIVE Urine Leukocyte Esterase NEGATIVE Urine Microscopic RBC 51 H Urine Microscopic WBC 5 Urine Bacteria FEW A Urine Hemoglobin 3+ H Urine Glucose NEGATIVE Urine Total Protein 2+ H Medications Medications Current Medications Ondansetron HCl (Zofran Inj) 4 mg Q6H PRN IV NAUSEA AND/OR VOMITING; Start at 10:30 Acetaminophen (Tylenol Tab) 650 mg Q6H PRN PO PAIN LEVEL 1-3 OR FEVER Last administered on 06/02/17 08:59; Admin Dose 650 MG; Start 06/01/17 at 10:30 Acetaminophen/ Hydrocodone Bitart ([place] (5/325)) 1 tab Q6H PRN PO MODERATE PAIN LEVEL 4-6 Last administered on 06/01/17 11:44; Admin Dose 1 TAB; Start at 10:30 Morphine Sulfate (morphine) 2 mg Q4H PRN IV SEVERE PAIN LEVEL 7-10 Last administered on 06/02/17 23:34; Admin Dose 2 MG; Start 06/01/17 at 10:30 Docusate Sodium (Colace) 100 mg Q12H PRN PO CONSTIPATION; Start 06/01/17 at 10: 30 Magnesium Hydroxide (Milk Of Mag) 30 ml DAILY PRN PO CONSTIPATION; Start at 10:30 Sodium Biphosphate/ Sodium Phosphate (Fleet Enema) 133 ml DAILY PRN [place] CONSTIPATION; Start 06/01/17 at 10:30 Vancomycin HCl (Vanco Iv Per Pharmacy) VANCOMYCIN PER PHARMACY NOTE XX ; Start 06/01/17 at 10:30 Nitroglycerin (Nitroglycerin (Sl Tab) 0.4 Mg) 1 tab Q5M PRN SL ANGINA; Start at 10:30 Aspirin (Halfprin) 81 mg DAILY PO Last administered on 06/02/17 08:59; Admin Dose 81 MG; Start 06/02/17 at 09:00 Atorvastatin Calcium (Lipitor) 40 mg QHS PO Last administered on 06/03/17 21: 01; Admin Dose 40 MG; Start 06/01/17 at 21:00 Bisoprolol Fumarate (Zebeta) 10 mg DAILY PO Last administered on 06/02/17 09: 00; Admin Dose 10 MG; Start 06/02/17 at 09:00 Clopidogrel Bisulfate (plaVIX) 75 mg DAILY PO Last administered on 06/02/17 08 :59; Admin Dose 75 MG; Start 06/02/17 at 09:00 Dutasteride (Avodart) 0.5 mg DAILY PO Last administered on 06/02/17 08:58; Admin Dose 0.5 MG; Start 06/02/17 at 09:00 Pramipexole (Mirapex) 0.125 mg HS PO Last administered on 06/03/17 21:02; Admin Dose 0.125 MG; Start 06/01/17 at 21:00 Rivastigmine Tartrate (Exelon 4.6 Mg/ 24 Hr Patch) 1 patch DAILY TRANSDERM Last administered on 06/04/17 08:58; Admin Dose 1 PATCH; Start 06/02/17 at 09: 00 Silver Sulfadiazine (Thermazene 1% 25 Gm) 1 applic DAILY TOP ; Start 06/02/17 at 09:00 Tamsulosin HCl (Flomax) 0.4 mg HS PO Last administered on 06/03/17 21:01; Admin Dose 0.4 MG; Start 06/01/17 at 21:00 Pantoprazole 40 mg 40 mg DAILY@06 PO ; Start 06/02/17 at 06:00 Piperacillin Sod/ Tazobactam Sod 50 ml @ 100 mls/hr Q6 IVPB Last administered on 06/05/17 06:28; Admin Dose 100 MLS/HR; Start 06/01/17 at 18:00 Vancomycin HCl/ Sodium Chloride (Vancocin/NS) 150 ml @ 75 mls/hr Q48H IVPB Last administered on 06/03/17 09:59; Admin Dose 75 MLS/HR; Start 06/03/17 at 09 :00 Tramadol HCl (Ultram) 50 mg Q6H PRN PO PAIN Last administered on 06/02/17 20: 36; Admin Dose 50 MG; Start 06/01/17 at 22:00 RADHA FELICIANO MD Jun 05, 2017 08:27
[2017-06-05 08:50] LABS: MAGNESIUM 2.2 mg/dl (1.7-2.5); PHOSPHORUS 3.2 mg/dl (2.5-4.9)
[2017-06-05] MEDS: CLOPIDOGREL 75 MG TAB PO SCH (08:54)
[2017-06-05] MEDS: BISOPROLOL 5 MG TAB PO SCH (08:54)
[2017-06-05] MEDS: ASPIRIN (EC) 81 MG TAB PO SCH (08:54)
[2017-06-05] MEDS: DUTASTERIDE 0.5 MG CAP PO SCH (08:54)
[2017-06-05 09:08] LABS: BASOPHILS % 0.1 % (0.0-2.0); EOSINOPHILS % 0.1 % (0.0-7.0); HEMATOCRIT 41.5 % (42.0-52.0); HEMOGLOBIN 13.5 g/dl (14.0-18.0); LYMPHOCYTES # 0.8 10^3/ul (0.8-2.9); LYMPHOCYTES % 10.4 % (15.0-51.0); MEAN CORPUSCULAR HEMOGLOBIN 29.6 pg (29.0-33.0); MEAN CORPUSCULAR HGB CONC 32.5 g/dl (32.0-37.0); MEAN PLATELET VOLUME 11.7 fl (7.4-10.4); MONOCYTE # 0.7 10^3/ul (0.3-0.9); MONOCYTES % 9.3 % (0.0-11.0); NEUTROPHIL # 6.3 10^3/ul (1.6-7.5); NEUTROPHILS % 79.8 % (39.0-77.0); PLATELET COUNT 165 10^3/UL (140-415); RED BLOOD COUNT 4.56 10^6/ul (4.70-6.10); WHITE BLOOD COUNT 7.9 10^3/ul (4.8-10.8)
[2017-06-05 09:40] LABS: CALCIUM 8.5 mg/dl (8.4-10.2); CREATININE 2.18 mg/dl (0.61-1.24); POTASSIUM 4.4 mmol/L (3.5-5.1)
[2017-06-05] MEDS: VANCOMYCIN 750 MG in SOD CHLORIDE 0.9% 150 ML IVPB SCH (10:02)
[2017-06-05] MEDS: RIVASTIGMINE 4.6MG/24H PATCH TRANSDERM SCH (10:02)
[2017-06-05] MEDS: SILVER SULFADIAZINE 1% 25 GM CR TOP SCH (10:07)
--- NOTE | 2017-06-05 11:45 | CONS ---
Date/Time of Note Date/Time of Note DATE: 06/05/17 TIME: 11:43 Assessment/Plan Assessment/Plan Additional Assessment/Plan Assessment and recommendations; 1. Patient admitted with hypoxemic and hypercapnic respiratory failure with significant interval improvement. 2. Likely right lower lobe pneumonia as well. 2. Chronic renal insufficiency. 4. Mild thrombocytopenia. 5. Possibly bilateral lacunar infarcts. Continue current treatment. Follow-up chest x-ray. Consultation Date/Type/Reason Admit Date/Time Jun 01, 2017 at 09:07 Initial Consult Date 06/01/17 Type of Consultation: Pulmonary Referring Provider: RAVINDRA BOYER MD 24 HR Interval Summary Free Text/Dictation Patient's condition is significantly improved. She has been weaned down to 4 L nasal cannula. Denies any shortness of breath. General exam; elderly woman, awake and alert. Currently in no distress. Exam/Review of Systems Vital Signs Vitals Vital Signs Date Time Temp Pulse Resp B/P Pulse Ox O2 Delivery O2 Flow Rate FiO2 06/05/17 09:15 Nasal Cannula 4.0 06/05/17 08:36 69 06/05/17 07:51 98.2 18 119/55 96 06/02/17 23:18 40 Intake and Output 06/04/17 06/04/17 06/05/17 15:00 23:00 07:00 Intake Total 890 ml 100 ml Output Total 400 ml Balance 490 ml 100 ml Exam HEENT exam; supple neck, no JVD. No lymphadenopathy. Midline trachea. No thyromegaly. Patient has a right intraocular lens implant. She is edentulous. Chest exam; diminished but clear breath sounds. S1-S2 audible, no murmurs. Regular rhythm. Abdomen exam; soft, no organomegaly. Bowel sounds audible. Extremity exam; no edema. FOUNTAIN MANAGER exam; no focal deficit. Results Result Diagram: 06/05/17 0745 06/05/17 0745 Results 24 hrs Laboratory Tests Test 06/04/17 15:50 06/05/17 07:45 Urine Color YELLOW Urine Clarity SLIGHTLY CLOUDY A Urine pH 5.0 Urine Specific [place] 1.019 Urine Ketones NEGATIVE Urine Nitrite NEGATIVE Urine Bilirubin NEGATIVE Urine Urobilinogen NEGATIVE Urine Leukocyte Esterase NEGATIVE Urine Microscopic RBC 51 H Urine Microscopic WBC 5 Urine Bacteria FEW A Urine Hemoglobin 3+ H Urine Glucose NEGATIVE Urine Total Protein 2+ H White Blood Count 7.9 Red Blood Count 4.56 L Hemoglobin 13.5 L Hematocrit 41.5 L Mean Corpuscular Volume 91.0 Mean Corpuscular Hemoglobin 29.6 Mean Corpuscular Hemoglobin Concent 32.5 Red Cell Distribution Width 12.0 Platelet Count 165 Mean Platelet Volume 11.7 H Neutrophils % 79.8 H Lymphocytes % 10.4 L Monocytes % 9.3 Eosinophils % 0.1 Basophils % 0.1 Nucleated Red Blood Cells % 0.0 Neutrophils # 6.3 Lymphocytes # 0.8 Monocytes # 0.7 Eosinophils # 0.0 Basophils # 0.0 Nucleated Red Blood Cells # 0.0 Sodium Level 138 Potassium Level 4.4 Chloride Level 103 Carbon Dioxide Level 31 Anion Gap 8 Blood Urea Nitrogen 48 H Creatinine 2.18 H Glucose Level 111 Calcium Level 8.5 Phosphorus Level 3.2 Magnesium Level 2.2 Vancomycin Level Trough 7.2 L Medications Medications Current Medications Ondansetron HCl (Zofran Inj) 4 mg Q6H PRN IV NAUSEA AND/OR VOMITING; Start at 10:30 Acetaminophen (Tylenol Tab) 650 mg Q6H PRN PO PAIN LEVEL 1-3 OR FEVER Last administered on 06/02/17 08:59; Admin Dose 650 MG; Start 06/01/17 at 10:30 Acetaminophen/ Hydrocodone Bitart ([place] (5/325)) 1 tab Q6H PRN PO MODERATE PAIN LEVEL 4-6 Last administered on 06/01/17 11:44; Admin Dose 1 TAB; Start at 10:30 Morphine Sulfate (morphine) 2 mg Q4H PRN IV SEVERE PAIN LEVEL 7-10 Last administered on 06/02/17 23:34; Admin Dose 2 MG; Start 06/01/17 at 10:30 Docusate Sodium (Colace) 100 mg Q12H PRN PO CONSTIPATION; Start 06/01/17 at 10: 30 Magnesium Hydroxide (Milk Of Mag) 30 ml DAILY PRN PO CONSTIPATION; Start at 10:30 Sodium Biphosphate/ Sodium Phosphate (Fleet Enema) 133 ml DAILY PRN [place] CONSTIPATION; Start 06/01/17 at 10:30 Vancomycin HCl (Vanco Iv Per Pharmacy) VANCOMYCIN PER PHARMACY NOTE XX ; Start 06/01/17 at 10:30 Nitroglycerin (Nitroglycerin (Sl Tab) 0.4 Mg) 1 tab Q5M PRN SL ANGINA; Start at 10:30 Aspirin (Halfprin) 81 mg DAILY PO Last administered on 06/02/17 08:59; Admin Dose 81 MG; Start 06/02/17 at 09:00 Atorvastatin Calcium (Lipitor) 40 mg QHS PO Last administered on 06/03/17 21: 01; Admin Dose 40 MG; Start 06/01/17 at 21:00 Bisoprolol Fumarate (Zebeta) 10 mg DAILY PO Last administered on 06/02/17 09: 00; Admin Dose 10 MG; Start 06/02/17 at 09:00 Clopidogrel Bisulfate (plaVIX) 75 mg DAILY PO Last administered on 06/02/17 08 :59; Admin Dose 75 MG; Start 06/02/17 at 09:00 Dutasteride (Avodart) 0.5 mg DAILY PO Last administered on 06/02/17 08:58; Admin Dose 0.5 MG; Start 06/02/17 at 09:00 Pramipexole (Mirapex) 0.125 mg HS PO Last administered on 06/03/17 21:02; Admin Dose 0.125 MG; Start 06/01/17 at 21:00 Rivastigmine Tartrate (Exelon 4.6 Mg/ 24 Hr Patch) 1 patch DAILY TRANSDERM Last administered on 06/05/17 10:02; Admin Dose 1 PATCH; Start 06/02/17 at 09: 00 Silver Sulfadiazine (Thermazene 1% 25 Gm) 1 applic DAILY TOP ; Start 06/02/17 at 09:00 Tamsulosin HCl (Flomax) 0.4 mg HS PO Last administered on 06/03/17 21:01; Admin Dose 0.4 MG; Start 06/01/17 at 21:00 Pantoprazole 40 mg 40 mg DAILY@06 PO ; Start 06/02/17 at 06:00 Piperacillin Sod/ Tazobactam Sod 50 ml @ 100 mls/hr Q6 IVPB Last administered on 06/05/17 06:28; Admin Dose 100 MLS/HR; Start 06/01/17 at 18:00 Vancomycin HCl/ Sodium Chloride (Vancocin/NS) 150 ml @ 75 mls/hr Q48H IVPB Last administered on 06/05/17 10:02; Admin Dose 75 MLS/HR; Start 06/03/17 at 09 :00 Tramadol HCl (Ultram) 50 mg Q6H PRN PO PAIN Last administered on 06/02/17 20: 36; Admin Dose 50 MG; Start 06/01/17 at 22:00 FRANSICO KAM Jun 05, 2017 11:45
--- NOTE | 2017-06-05 12:05 | CONS ---
Date/Time of Note Date/Time of Note DATE: 06/05/17 TIME: 11:53 Assessment/Plan Assessment/Plan Chief Complaint/Hosp Course 86 yo male admitted with pneumonia, encephalopathy, acute on chronic heart failure with tiny embolic appearing infarcts right parietal, right temporal region on MRI. ECHO EF: 30% with akinetic segments on dual antiplatelet therapy. Recommendations: likely embolic event from cardiomyopathy continue antiplatelet, continue tele monitoring for afib may obtain MRA Head/Neck to complete vascular imaging LDL and Hemoglobin A1C are at goal continue current medications maintain normotensive and afebrile, avoid hypotension avoid overly sedating medications DVT ppx PT/OT/Speech evaluation Problems: Consultation Date/Type/Reason Admit Date/Time Jun 01, 2017 at 09:07 Date of Consultation: Jun 05, 2017 Type of Consultation: Neurology Reason for Consultation CVA work up Referring Provider: CORINNA GONZALES MD Hx of Present Illness 86 year old male with history of dementia admitted with respiratory failure for HCAP RLL PNA treated with abx, chronic renal insufficiency, acute on chronic heart failure EF: 30% with hypokinetic segments (LV hypokinetic, basal anterior segment, apical anterior segment) mild LA enlargement. MRI showed 2 sub-centimeter foci restricted diffusion right temporal second in parietal lobe. Cardiovascular: No chest pain Gastrointestinal: no complaints Genitourinary: other (condom catheter in place) Past Surgical History Past Surgical Hx: other (Unknown) Social History Alcohol Use: none Smoking Status: Current every day smoker Drug Use: none Exam/Review of Systems Vital Signs Vitals Vital Signs Date Time Temp Pulse Resp B/P Pulse Ox O2 Delivery O2 Flow Rate FiO2 06/05/17 11:43 98.1 69 18 125/51 96 06/05/17 09:15 Nasal Cannula 4.0 06/02/17 23:18 40 Intake and Output 06/04/17 06/04/17 06/05/17 15:00 23:00 07:00 Intake Total 890 ml 100 ml Output Total 400 ml Balance 490 ml 100 ml Exam awake and alert encephalopathic difficult to examine, poor cooperation with exam CN: appear grossly intact no obvious facial asymmetry gaze preference Motor: lifts all extremities anti-gravity atleast 3/5 no obvious drift noted Reflexes 2+ throughout Results Result Diagram: 06/05/17 0745 06/05/17 0745 Results 24 hrs Laboratory Tests Test 06/04/17 15:50 06/05/17 07:45 Urine Color YELLOW Urine Clarity SLIGHTLY CLOUDY A Urine pH 5.0 Urine Specific [place] 1.019 Urine Ketones NEGATIVE Urine Nitrite NEGATIVE Urine Bilirubin NEGATIVE Urine Urobilinogen NEGATIVE Urine Leukocyte Esterase NEGATIVE Urine Microscopic RBC 51 H Urine Microscopic WBC 5 Urine Bacteria FEW A Urine Hemoglobin 3+ H Urine Glucose NEGATIVE Urine Total Protein 2+ H White Blood Count 7.9 Red Blood Count 4.56 L Hemoglobin 13.5 L Hematocrit 41.5 L Mean Corpuscular Volume 91.0 Mean Corpuscular Hemoglobin 29.6 Mean Corpuscular Hemoglobin Concent 32.5 Red Cell Distribution Width 12.0 Platelet Count 165 Mean Platelet Volume 11.7 H Neutrophils % 79.8 H Lymphocytes % 10.4 L Monocytes % 9.3 Eosinophils % 0.1 Basophils % 0.1 Nucleated Red Blood Cells % 0.0 Neutrophils # 6.3 Lymphocytes # 0.8 Monocytes # 0.7 Eosinophils # 0.0 Basophils # 0.0 Nucleated Red Blood Cells # 0.0 Sodium Level 138 Potassium Level 4.4 Chloride Level 103 Carbon Dioxide Level 31 Anion Gap 8 Blood Urea Nitrogen 48 H Creatinine 2.18 H Glucose Level 111 Calcium Level 8.5 Phosphorus Level 3.2 Magnesium Level 2.2 Vancomycin Level Trough 7.2 L Medications Medications Current Medications Ondansetron HCl (Zofran Inj) 4 mg Q6H PRN IV NAUSEA AND/OR VOMITING; Start at 10:30 Acetaminophen (Tylenol Tab) 650 mg Q6H PRN PO PAIN LEVEL 1-3 OR FEVER Last administered on 06/02/17 08:59; Admin Dose 650 MG; Start 06/01/17 at 10:30 Acetaminophen/ Hydrocodone Bitart ([place] (5/325)) 1 tab Q6H PRN PO MODERATE PAIN LEVEL 4-6 Last administered on 06/01/17 11:44; Admin Dose 1 TAB; Start at 10:30 Morphine Sulfate (morphine) 2 mg Q4H PRN IV SEVERE PAIN LEVEL 7-10 Last administered on 06/02/17 23:34; Admin Dose 2 MG; Start 06/01/17 at 10:30 Docusate Sodium (Colace) 100 mg Q12H PRN PO CONSTIPATION; Start 06/01/17 at 10: 30 Magnesium Hydroxide (Milk Of Mag) 30 ml DAILY PRN PO CONSTIPATION; Start at 10:30 Sodium Biphosphate/ Sodium Phosphate (Fleet Enema) 133 ml DAILY PRN [place] CONSTIPATION; Start 06/01/17 at 10:30 Vancomycin HCl (Vanco Iv Per Pharmacy) VANCOMYCIN PER PHARMACY NOTE XX ; Start 06/01/17 at 10:30 Nitroglycerin (Nitroglycerin (Sl Tab) 0.4 Mg) 1 tab Q5M PRN SL ANGINA; Start at 10:30 Aspirin (Halfprin) 81 mg DAILY PO Last administered on 06/02/17 08:59; Admin Dose 81 MG; Start 06/02/17 at 09:00 Atorvastatin Calcium (Lipitor) 40 mg QHS PO Last administered on 06/03/17 21: 01; Admin Dose 40 MG; Start 06/01/17 at 21:00 Bisoprolol Fumarate (Zebeta) 10 mg DAILY PO Last administered on 06/02/17 09: 00; Admin Dose 10 MG; Start 06/02/17 at 09:00 Clopidogrel Bisulfate (plaVIX) 75 mg DAILY PO Last administered on 06/02/17 08 :59; Admin Dose 75 MG; Start 06/02/17 at 09:00 Dutasteride (Avodart) 0.5 mg DAILY PO Last administered on 06/02/17 08:58; Admin Dose 0.5 MG; Start 06/02/17 at 09:00 Pramipexole (Mirapex) 0.125 mg HS PO Last administered on 06/03/17 21:02; Admin Dose 0.125 MG; Start 06/01/17 at 21:00 Rivastigmine Tartrate (Exelon 4.6 Mg/ 24 Hr Patch) 1 patch DAILY TRANSDERM Last administered on 06/05/17 10:02; Admin Dose 1 PATCH; Start 06/02/17 at 09: 00 Silver Sulfadiazine (Thermazene 1% 25 Gm) 1 applic DAILY TOP ; Start 06/02/17 at 09:00 Tamsulosin HCl (Flomax) 0.4 mg HS PO Last administered on 06/03/17 21:01; Admin Dose 0.4 MG; Start 06/01/17 at 21:00 Pantoprazole 40 mg 40 mg DAILY@06 PO ; Start 06/02/17 at 06:00 Piperacillin Sod/ Tazobactam Sod 50 ml @ 100 mls/hr Q6 IVPB Last administered on 06/05/17 06:28; Admin Dose 100 MLS/HR; Start 06/01/17 at 18:00 Vancomycin HCl/ Sodium Chloride (Vancocin/NS) 150 ml @ 75 mls/hr Q48H IVPB Last administered on 06/05/17 10:02; Admin Dose 75 MLS/HR; Start 06/03/17 at 09 :00 Tramadol HCl (Ultram) 50 mg Q6H PRN PO PAIN Last administered on 06/02/17 20: 36; Admin Dose 50 MG; Start 06/01/17 at 22:00 STEPHEN CRABTREE MD Jun 05, 2017 12:04
--- NOTE | 2017-06-05 13:13 | RADRPT ---
PROCEDURE: XR Chest. CLINICAL INDICATION: Shortness of breath. TECHNIQUE: Single frontal view. COMPARISON: 06/02/2017. FINDINGS: Mild bilateral interstitial pulmonary disease is unchanged. There is right basilar atelectasis or pn eum[place], slightly worse than seen previously. The lungs are otherwise clear. The heart is mildly enlarged. There is calcification in the aorta consistent with atherosclerosis. There is a moderate right pleural effusion. There is no left pleural effusion. There is no pneumothorax. IMPRESSION: 1. Slightly worse appearance of the right lung base. 2. No other change from 06/02/2017. RPTAT: QQ .Scott Alvarado MD, MD Date Time Electronically viewed and signed by .Scott Alvarado MD, MD on 06/05/2017 13:12 .R/
--- NOTE | 2017-06-05 14:36 | PN ---
Date/Time of Note Date/Time of Note DATE: 06/05/17 TIME: 14:36 Assessment/Plan VTE Prophylaxis VTE Prophylaxis Intervention: SCD's Lines/Catheters IV Catheter Type (from Nrsg): Saline Lock Urinary Cath still in place: No Assessment/Plan Assessment/Plan 86 yo M with dementia, chronic respiratory insufficiency admitted for SOB 2/2 HCAP and likely acute on chronic heart failure (EF 30%) also found to have MAGDA on CKD and NSTEMI now with incidental finding of acute CVA #CVA: neuro on cs, likely cardioembolic origin. tele only with SR PT/OT/ST MRAs ordered cont DAPT, statin, BP control #HCAP: cont abx, anticipate 7 day course. pt back on home O2 (.15-->) #MAGDA on CKD: renal on consult, Cr stable #NSTEMI: likely from demand, cardiology following #HL, HTN, h/o CAD cont zetia, asa/plavix, home BP meds ARU cs placed Subjective 24 Hr Interval Summary Free Text/Dictation Overnight imaging with incidental finding of CVA. Per pt's son and friend, pt ambulatory and independent at baseline Exam/Review of Systems Vital Signs Vitals Vital Signs Date Time Temp Pulse Resp B/P Pulse Ox O2 Delivery O2 Flow Rate FiO2 06/05/17 12:26 67 06/05/17 11:43 98.1 18 125/51 96 06/05/17 09:15 Nasal Cannula 4.0 06/02/17 23:18 40 Intake and Output 06/04/17 06/04/17 06/05/17 15:00 23:00 07:00 Intake Total 890 ml 100 ml Output Total 400 ml Balance 490 ml 100 ml Exam follows commands intermittently though unclear if part of this is 2/2 pt's presbycusis face symmetric hand sleep scientist 5/5 bl no mrg abd soft no rashes Results Result Diagram: 06/05/17 0745 06/05/17 0745 Results 24 hrs Laboratory Tests Test 06/04/17 15:50 06/05/17 07:45 Urine Color YELLOW Urine Clarity SLIGHTLY CLOUDY A Urine pH 5.0 Urine Specific [place] 1.019 Urine Ketones NEGATIVE Urine Nitrite NEGATIVE Urine Bilirubin NEGATIVE Urine Urobilinogen NEGATIVE Urine Leukocyte Esterase NEGATIVE Urine Microscopic RBC 51 H Urine Microscopic WBC 5 Urine Bacteria FEW A Urine Hemoglobin 3+ H Urine Glucose NEGATIVE Urine Total Protein 2+ H White Blood Count 7.9 Red Blood Count 4.56 L Hemoglobin 13.5 L Hematocrit 41.5 L Mean Corpuscular Volume 91.0 Mean Corpuscular Hemoglobin 29.6 Mean Corpuscular Hemoglobin Concent 32.5 Red Cell Distribution Width 12.0 Platelet Count 165 Mean Platelet Volume 11.7 H Neutrophils % 79.8 H Lymphocytes % 10.4 L Monocytes % 9.3 Eosinophils % 0.1 Basophils % 0.1 Nucleated Red Blood Cells % 0.0 Neutrophils # 6.3 Lymphocytes # 0.8 Monocytes # 0.7 Eosinophils # 0.0 Basophils # 0.0 Nucleated Red Blood Cells # 0.0 Sodium Level 138 Potassium Level 4.4 Chloride Level 103 Carbon Dioxide Level 31 Anion Gap 8 Blood Urea Nitrogen 48 H Creatinine 2.18 H Glucose Level 111 Calcium Level 8.5 Phosphorus Level 3.2 Magnesium Level 2.2 Vancomycin Level Trough 7.2 L Medications Medications Current Medications Ondansetron HCl (Zofran Inj) 4 mg Q6H PRN IV NAUSEA AND/OR VOMITING; Start at 10:30 Acetaminophen (Tylenol Tab) 650 mg Q6H PRN PO PAIN LEVEL 1-3 OR FEVER Last administered on 06/02/17 08:59; Admin Dose 650 MG; Start 06/01/17 at 10:30 Acetaminophen/ Hydrocodone Bitart ([place] (5/325)) 1 tab Q6H PRN PO MODERATE PAIN LEVEL 4-6 Last administered on 06/01/17 11:44; Admin Dose 1 TAB; Start at 10:30 Morphine Sulfate (morphine) 2 mg Q4H PRN IV SEVERE PAIN LEVEL 7-10 Last administered on 06/02/17 23:34; Admin Dose 2 MG; Start 06/01/17 at 10:30 Docusate Sodium (Colace) 100 mg Q12H PRN PO CONSTIPATION; Start 06/01/17 at 10: 30 Magnesium Hydroxide (Milk Of Mag) 30 ml DAILY PRN PO CONSTIPATION; Start at 10:30 Sodium Biphosphate/ Sodium Phosphate (Fleet Enema) 133 ml DAILY PRN [place] CONSTIPATION; Start 06/01/17 at 10:30 Vancomycin HCl (Vanco Iv Per Pharmacy) VANCOMYCIN PER PHARMACY NOTE XX ; Start 06/01/17 at 10:30 Nitroglycerin (Nitroglycerin (Sl Tab) 0.4 Mg) 1 tab Q5M PRN [place] ANGINA; Start at 10:30 Aspirin (Halfprin) 81 mg DAILY PO Last administered on 06/02/17 08:59; Admin Dose 81 MG; Start 06/02/17 at 09:00 Atorvastatin Calcium (Lipitor) 40 mg QHS PO Last administered on 06/03/17 21: 01; Admin Dose 40 MG; Start 06/01/17 at 21:00 Bisoprolol Fumarate (Zebeta) 10 mg DAILY PO Last administered on 06/02/17 09: 00; Admin Dose 10 MG; Start 06/02/17 at 09:00 Clopidogrel Bisulfate (plaVIX) 75 mg DAILY PO Last administered on 06/02/17 08 :59; Admin Dose 75 MG; Start 06/02/17 at 09:00 Dutasteride (Avodart) 0.5 mg DAILY PO Last administered on 06/02/17 08:58; Admin Dose 0.5 MG; Start 06/02/17 at 09:00 Pramipexole (Mirapex) 0.125 mg HS PO Last administered on 06/03/17 21:02; Admin Dose 0.125 MG; Start 06/01/17 at 21:00 Rivastigmine Tartrate (Exelon 4.6 Mg/ 24 Hr Patch) 1 patch DAILY TRANSDERM Last administered on 06/05/17 10:02; Admin Dose 1 PATCH; Start 06/02/17 at 09: 00 Silver Sulfadiazine (Thermazene 1% 25 Gm) 1 applic DAILY TOP ; Start 06/02/17 at 09:00 Tamsulosin HCl (Flomax) 0.4 mg HS PO Last administered on 06/03/17 21:01; Admin Dose 0.4 MG; Start 06/01/17 at 21:00 Pantoprazole 40 mg 40 mg DAILY@06 PO ; Start 06/02/17 at 06:00 Piperacillin Sod/ Tazobactam Sod 50 ml @ 100 mls/hr Q6 IVPB Last administered on 06/05/17 13:05; Admin Dose 100 MLS/HR; Start 06/01/17 at 18:00 Vancomycin HCl/ Sodium Chloride (Vancocin/NS) 150 ml @ 75 mls/hr Q48H IVPB Last administered on 06/05/17 10:02; Admin Dose 75 MLS/HR; Start 06/03/17 at 09 :00 Tramadol HCl (Ultram) 50 mg Q6H PRN PO PAIN Last administered on 06/02/17 20: 36; Admin Dose 50 MG; Start 06/01/17 at 22:00 CORINNA GONZALES MD Jun 05, 2017 14:36
--- NOTE | 2017-06-05 15:37 | CONS ---
Date/Time of Note Date/Time of Note DATE: 06/05/17 TIME: 15:32 Consult Date/Type/Reason Admit Date/Time Jun 01, 2017 at 09:07 Initial Consult Date 06/01/17 Type of Consultation: CARDIOLOGY Ordering Provider: CORINNA GONZALES MD Subjective cardiology follow up d/w DAUGHTER. D/W staff and rhythm was reviewed. pt remains in NSR pt is more alert pt is still NPO . OBJECTIVE: General: thin man in no resp distress HEENT: NC/AT. pupils are equal. round. NECK: NO JVD. no stridor. CV: RRR. systolic murmur grade III./; no gallop or rubs. PULM: +rhonchi right side mostly GI: SOFT, NT, ND, no rebound or guarding Extremity: no significant LE edema. no clubbing. neuro: awake AND OX 1 at least. Psych: calm and pleasant rectal: deferred : normal male ECG reviewed personally NSR inf infarct. ant infarct age undetermined. CXR reviewed. focal infiltrate ECHO reviewed: 1. Normal left ventricular cavity size. Moderate concentric left ventricular hypertrophy. Severe left ventricular systolic dysfunction. Ejection fraction is visually estimated at 30 %. Abnormal Diastolic Function. These segments of the LV are hypokinetic basal anterior segment, mid anterior segment, apical anterior segment. , anterolateral mid segment. , apical lateral segment. , inferior apex segment, inferior mid segment, inferoseptum mid segment. , anteroseptum mid segment, apex. and apical septum. 2. There is mild enlargement of left atrium. 3. Mitral valve is not well visualized. Mitral valve leaflets appear mildly thickened. Severe mitral annular calcification. Trace mitral regurgitation. 4. Aortic valve not well visualized. Aortic cusps appear mildly calcified. Trace to mild aortic valve regurgitation. 5. Normal appearance of the tricuspid valve. Estimated peak PA systolic pressure 40 mmHg. There is mild tricuspid regurgitation. 6. Normal size and normal respiratory collapse consistent with normal right atrial pressure. Objective Vital Signs Date Time Temp Pulse Resp B/P Pulse Ox O2 Delivery O2 Flow Rate FiO2 06/05/17 12:26 67 06/05/17 11:43 98.1 18 125/51 96 06/05/17 09:15 Nasal Cannula 4.0 06/02/17 23:18 40 Intake and Output 06/04/17 06/04/17 06/05/17 15:00 23:00 07:00 Intake Total 890 ml 100 ml Output Total 400 ml Balance 490 ml 100 ml Results/Medications Result Diagram: 06/05/17 0745 06/05/17 0745 Results 24 hrs Laboratory Tests Test 06/04/17 15:50 06/05/17 07:45 Urine Color YELLOW Urine Clarity SLIGHTLY CLOUDY A Urine pH 5.0 Urine Specific [place] 1.019 Urine Ketones NEGATIVE Urine Nitrite NEGATIVE Urine Bilirubin NEGATIVE Urine Urobilinogen NEGATIVE Urine Leukocyte Esterase NEGATIVE Urine Microscopic RBC 51 H Urine Microscopic WBC 5 Urine Bacteria FEW A Urine Hemoglobin 3+ H Urine Glucose NEGATIVE Urine Total Protein 2+ H White Blood Count 7.9 Red Blood Count 4.56 L Hemoglobin 13.5 L Hematocrit 41.5 L Mean Corpuscular Volume 91.0 Mean Corpuscular Hemoglobin 29.6 Mean Corpuscular Hemoglobin Concent 32.5 Red Cell Distribution Width 12.0 Platelet Count 165 Mean Platelet Volume 11.7 H Neutrophils % 79.8 H Lymphocytes % 10.4 L Monocytes % 9.3 Eosinophils % 0.1 Basophils % 0.1 Nucleated Red Blood Cells % 0.0 Neutrophils # 6.3 Lymphocytes # 0.8 Monocytes # 0.7 Eosinophils # 0.0 Basophils # 0.0 Nucleated Red Blood Cells # 0.0 Sodium Level 138 Potassium Level 4.4 Chloride Level 103 Carbon Dioxide Level 31 Anion Gap 8 Blood Urea Nitrogen 48 H Creatinine 2.18 H Glucose Level 111 Calcium Level 8.5 Phosphorus Level 3.2 Magnesium Level 2.2 Vancomycin Level Trough 7.2 L Medications Current Medications Ondansetron HCl (Zofran Inj) 4 mg Q6H PRN IV NAUSEA AND/OR VOMITING; Start at 10:30 Acetaminophen (Tylenol Tab) 650 mg Q6H PRN PO PAIN LEVEL 1-3 OR FEVER Last administered on 06/02/17 08:59; Admin Dose 650 MG; Start 06/01/17 at 10:30 Acetaminophen/ Hydrocodone Bitart ([place] (5/325)) 1 tab Q6H PRN PO MODERATE PAIN LEVEL 4-6 Last administered on 06/01/17 11:44; Admin Dose 1 TAB; Start at 10:30 Morphine Sulfate (morphine) 2 mg Q4H PRN IV SEVERE PAIN LEVEL 7-10 Last administered on 06/02/17 23:34; Admin Dose 2 MG; Start 06/01/17 at 10:30 Docusate Sodium (Colace) 100 mg Q12H PRN PO CONSTIPATION; Start 06/01/17 at 10: 30 Magnesium Hydroxide (Milk Of Mag) 30 ml DAILY PRN PO CONSTIPATION; Start at 10:30 Sodium Biphosphate/ Sodium Phosphate (Fleet Enema) 133 ml DAILY PRN [place] CONSTIPATION; Start 06/01/17 at 10:30 Vancomycin HCl (Vanco Iv Per Pharmacy) VANCOMYCIN PER PHARMACY NOTE XX ; Start 06/01/17 at 10:30 Nitroglycerin (Nitroglycerin (Sl Tab) 0.4 Mg) 1 tab Q5M PRN SL ANGINA; Start at 10:30 Aspirin (Halfprin) 81 mg DAILY PO Last administered on 06/02/17 08:59; Admin Dose 81 MG; Start 06/02/17 at 09:00 Atorvastatin Calcium (Lipitor) 40 mg QHS PO Last administered on 06/03/17 21: 01; Admin Dose 40 MG; Start 06/01/17 at 21:00 Bisoprolol Fumarate (Zebeta) 10 mg DAILY PO Last administered on 06/02/17 09: 00; Admin Dose 10 MG; Start 06/02/17 at 09:00 Clopidogrel Bisulfate (plaVIX) 75 mg DAILY PO Last administered on 06/02/17 08 :59; Admin Dose 75 MG; Start 06/02/17 at 09:00 Dutasteride (Avodart) 0.5 mg DAILY PO Last administered on 06/02/17 08:58; Admin Dose 0.5 MG; Start 06/02/17 at 09:00 Pramipexole (Mirapex) 0.125 mg HS PO Last administered on 06/03/17 21:02; Admin Dose 0.125 MG; Start 06/01/17 at 21:00 Rivastigmine Tartrate (Exelon 4.6 Mg/ 24 Hr Patch) 1 patch DAILY TRANSDERM Last administered on 06/05/17 10:02; Admin Dose 1 PATCH; Start 06/02/17 at 09: 00 Silver Sulfadiazine (Thermazene 1% 25 Gm) 1 applic DAILY TOP ; Start 06/02/17 at 09:00 Tamsulosin HCl (Flomax) 0.4 mg HS PO Last administered on 06/03/17 21:01; Admin Dose 0.4 MG; Start 06/01/17 at 21:00 Pantoprazole 40 mg 40 mg DAILY@06 PO ; Start 06/02/17 at 06:00 Piperacillin Sod/ Tazobactam Sod 50 ml @ 100 mls/hr Q6 IVPB Last administered on 06/05/17 13:05; Admin Dose 100 MLS/HR; Start 06/01/17 at 18:00 Vancomycin HCl/ Sodium Chloride (Vancocin/NS) 150 ml @ 75 mls/hr Q48H IVPB Last administered on 06/05/17 10:02; Admin Dose 75 MLS/HR; Start 06/03/17 at 09 :00 Tramadol HCl (Ultram) 50 mg Q6H PRN PO PAIN Last administered on 06/02/17 20: 36; Admin Dose 50 MG; Start 06/01/17 at 22:00 Aspirin (Aspirin) 300 mg DAILY TN ; Start 06/05/17 at 16:00; Status UNV Assessment/Plan Chief Complaint/Hosp Course Assessment: 1. abnormal ECG: but c/w old but not acute STEMI 2. pneumonia 3. most likely cardiomyopathy 4. HTN 5. hyper K 6. Renal failure; probably MAGDA 7. Dyslipidemia 8. hx CAD, [place] 9. encephalopathy 10. smoker 11. hx etoh use 12. NSVT: stable now 13. abnormal trop with markedly elevated CK but not much elevation of CK-MB: c/ w false + trop from muscle release and NOT [place]. 14. CVA Recommendations: will start rectal ASA until pt is able to take po meds resume ASA/ Plavix once able to take po med. abx as per IM off off ARB/ YUMIKO now due to MAGDA and hyper K. f/u renal consultations rec as well diuresis prn only. Fluid management as per renal Betablockers as tolerated. tele monitoring Thank you for his referral. I will continue to follow along with you. JUAN HOLMAN Problems: JUAN HOLMAN MD Jun 05, 2017 15:37
--- NOTE | 2017-06-05 16:42 | RADRPT ---
PROCEDURE: US Carotids. CLINICAL INDICATION: bruit , stroke TECHNIQUE: Multiple sonographic of the carotid bifurcation region and vertebral arteries were obta ined utilizing trimble scale, duplex and color-flow imaging. The images were reviewed on a PACS worksta tion. COMPARISON: No prior studies are available for comparison. FINDINGS: Evaluation of the right carotid bifurcation region reveals moderate to severe calcific atherosclerot ic disease. Evaluation of the left carotid bifurcation region reveals moderate calcific atherosclerotic disease. There is antegrade flow within the vertebral arteries bilaterally. 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 - validated velocity measure ments with angiographic measurements, velocity criteria are extrapolated from diameter data as defin ed by the Society of Radiologists in Ultrasound Consensus Conference Radiology 2003; 229;340-346. T his study does indirectly reference the measurement of the distal ICA diameter as the denominator fo r stenosis measurement. Normal antegrade flow in the vertebral arteries bilaterally. Further evaluation with a CT angiogram is recommended. .Nasir Pal MD, MD Date Time Electronically viewed and signed by .Nasir Pal MD, MD on 06/05/2017 16:42 .S/
[2017-06-05] MEDS: ASPIRIN 300 MG SUPP PR SCH (17:32)
[2017-06-05] MEDS: NICOTINE (21 MG/24 HR) PATCH TRANSDERM SCH (18:59)
[2017-06-05] MEDS: TAMSULOSIN (SR) 0.4 MG CAP PO SCH (20:50)
[2017-06-05] MEDS: ATORVASTATIN 40 MG TAB PO SCH (20:50)
[2017-06-05] MEDS: PRAMIPEXOLE 0.125 MG TAB PO SCH (20:50)
[2017-06-06] VITALS (11 sets, daily range): BP systolic 112–145; BP diastolic 52–74; PULSE 60–112; RESP 18–20
[2017-06-06] MEDS: PANTOPRAZOLE (EC) 40 MG TAB PO SCH (00:05)
[2017-06-06] MEDS: PIPER-TAZO 2.25 GM (PMX) 50 ML IVPB SCH ×4 (00:32→17:38)
--- NOTE | 2017-06-06 08:05 | RADRPT ---
PROCEDURE: MRA Brain. CLINICAL INDICATION: Stroke TECHNIQUE: 3-D [id number] MR angiography of the intracranial vasculature was performed without contrast. Multiplanar reformatted and 3-D maximum intensity projection reconstructed images were t hen performed. COMPARISON: None FINDINGS: The study is slightly limited by patient motion. The internal carotid arteries are patent and normal in caliber. The middle cerebral and the anterio r cerebral arteries are also patent and normal in caliber with no significant luminal irregularity o r narrowing identified. The vertebral arteries, basilar artery, and superior cerebellar arteries ar e visualized and normal in appearance. . The vertebral arteries are codominant The posterior cereb ral arteries are patent and normal in appearance bilaterally. No aneurysms are detected. Note shou ld be made that small, less than 3 mm, or thrombosed aneurysms may not be well seen with this techni que. IMPRESSION: Normal MRA of the brain. RPTAT: HLBE Physician Anna Date Time Electronically viewed and signed by Physician Anna on 06/06/2017 08:05 MIGUEL/
--- NOTE | 2017-06-06 08:35 | CONS ---
Date/Time of Note Date/Time of Note DATE: 06/06/17 TIME: 08:32 Consult Date/Type/Reason Admit Date/Time Jun 01, 2017 at 09:07 Initial Consult Date 06/01/17 Type of Consultation: CARDIOLOGY Ordering Provider: CORINNA GONZALES MD Subjective cardiology follow up D/W staff and rhythm was reviewed. pt remains in NSR but with short episodes of NSVT . NO AFIB pt is more alert pt is still NPO . pt still gets anxious. OBJECTIVE: General: thin man in no resp distress HEENT: NC/AT. pupils are equal. round. NECK: NO JVD. no stridor. CV: RRR. systolic murmur grade III./; no gallop or rubs. PULM: +rhonchi right side mostly GI: SOFT, NT, ND, no rebound or guarding Extremity: no significant LE edema. no clubbing. neuro: awake and OX 1 at least. Psych: calm and pleasant rectal: deferred : normal male ECG reviewed personally NSR inf infarct. ant infarct age undetermined. CXR reviewed. focal infiltrate ECHO reviewed: 1. Normal left ventricular cavity size. Moderate concentric left ventricular hypertrophy. Severe left ventricular systolic dysfunction. Ejection fraction is visually estimated at 30 %. Abnormal Diastolic Function. These segments of the LV are hypokinetic basal anterior segment, mid anterior segment, apical anterior segment. , anterolateral mid segment. , apical lateral segment. , inferior apex segment, inferior mid segment, inferoseptum mid segment. , anteroseptum mid segment, apex. and apical septum. 2. There is mild enlargement of left atrium. 3. Mitral valve is not well visualized. Mitral valve leaflets appear mildly thickened. Severe mitral annular calcification. Trace mitral regurgitation. 4. Aortic valve not well visualized. Aortic cusps appear mildly calcified. Trace to mild aortic valve regurgitation. 5. Normal appearance of the tricuspid valve. Estimated peak PA systolic pressure 40 mmHg. There is mild tricuspid regurgitation. 6. Normal size and normal respiratory collapse consistent with normal right atrial pressure. Objective Vital Signs Date Time Temp Pulse Resp B/P Pulse Ox O2 Delivery O2 Flow Rate FiO2 06/06/17 06:30 97.6 82 123/74 96 Nasal Cannula 4.0 06/05/17 20:53 18 06/02/17 23:18 40 Intake and Output 06/05/17 06/05/17 06/06/17 15:00 23:00 07:00 Intake Total 200 ml 50 ml Output Total 200 ml Balance 200 ml 50 ml -200 ml Results/Medications Result Diagram: 06/05/17 0745 06/05/17 0745 Medications Current Medications Ondansetron HCl (Zofran Inj) 4 mg Q6H PRN IV NAUSEA AND/OR VOMITING; Start at 10:30 Acetaminophen (Tylenol Tab) 650 mg Q6H PRN PO PAIN LEVEL 1-3 OR FEVER Last administered on 06/02/17 08:59; Admin Dose 650 MG; Start 06/01/17 at 10:30 Acetaminophen/ Hydrocodone Bitart ([place] (5/325)) 1 tab Q6H PRN PO MODERATE PAIN LEVEL 4-6 Last administered on 06/01/17 11:44; Admin Dose 1 TAB; Start at 10:30 Morphine Sulfate (morphine) 2 mg Q4H PRN IV SEVERE PAIN LEVEL 7-10 Last administered on 06/02/17 23:34; Admin Dose 2 MG; Start 06/01/17 at 10:30 Docusate Sodium (Colace) 100 mg Q12H PRN PO CONSTIPATION; Start 06/01/17 at 10: 30 Magnesium Hydroxide (Milk Of Mag) 30 ml DAILY PRN PO CONSTIPATION; Start at 10:30 Sodium Biphosphate/ Sodium Phosphate (Fleet Enema) 133 ml DAILY PRN TN CONSTIPATION; Start 06/01/17 at 10:30 Vancomycin HCl (Vanco Iv Per Pharmacy) VANCOMYCIN PER PHARMACY NOTE XX ; Start 06/01/17 at 10:30 Nitroglycerin (Nitroglycerin (Sl Tab) 0.4 Mg) 1 tab Q5M PRN SL ANGINA; Start at 10:30 Aspirin (Halfprin) 81 mg DAILY PO Last administered on 06/02/17 08:59; Admin Dose 81 MG; Start 06/02/17 at 09:00 Atorvastatin Calcium (Lipitor) 40 mg QHS PO Last administered on 06/03/17 21: 01; Admin Dose 40 MG; Start 06/01/17 at 21:00 Bisoprolol Fumarate (Zebeta) 10 mg DAILY PO Last administered on 06/02/17 09: 00; Admin Dose 10 MG; Start 06/02/17 at 09:00 Clopidogrel Bisulfate (plaVIX) 75 mg DAILY PO Last administered on 06/02/17 08 :59; Admin Dose 75 MG; Start 06/02/17 at 09:00 Dutasteride (Avodart) 0.5 mg DAILY PO Last administered on 06/02/17 08:58; Admin Dose 0.5 MG; Start 06/02/17 at 09:00 Pramipexole (Mirapex) 0.125 mg HS PO Last administered on 06/03/17 21:02; Admin Dose 0.125 MG; Start 06/01/17 at 21:00 Rivastigmine Tartrate (Exelon 4.6 Mg/ 24 Hr Patch) 1 patch DAILY TRANSDERM Last administered on 06/05/17 10:02; Admin Dose 1 PATCH; Start 06/02/17 at 09: 00 Silver Sulfadiazine (Thermazene 1% 25 Gm) 1 applic DAILY TOP ; Start 06/02/17 at 09:00 Tamsulosin HCl (Flomax) 0.4 mg HS PO Last administered on 06/03/17 21:01; Admin Dose 0.4 MG; Start 06/01/17 at 21:00 Pantoprazole 40 mg 40 mg DAILY@06 PO ; Start 06/02/17 at 06:00 Piperacillin Sod/ Tazobactam Sod (Zosyn 2.25gm/ 50ml (Pmx)) 50 ml @ 100 mls/hr Q6 IVPB Last administered on 06/06/17 06:18; Admin Dose 100 MLS/HR; Start at 18:00 Tramadol HCl (Ultram) 50 mg Q6H PRN PO PAIN Last administered on 06/02/17 20: 36; Admin Dose 50 MG; Start 06/01/17 at 22:00 Aspirin (Aspirin) 300 mg DAILY TN Last administered on 06/05/17 17:32; Admin Dose 300 MG; Start 06/05/17 at 17:00 Nicotine 1 patch 1 patch DAILY TRANSDERM Last administered on 06/05/17 18:59; Admin Dose 1 PATCH; Start 06/05/17 at 18:30 Vancomycin HCl/ Sodium Chloride (Vancocin/NS) 150 ml @ 75 mls/hr Q36H IVPB ; Start 06/06/17 at 22:00 Assessment/Plan Chief Complaint/Hosp Course Assessment: 1. abnormal ECG: but c/w old but not acute STEMI 2. pneumonia 3. most likely cardiomyopathy 4. HTN 5. hyper K 6. Renal failure; probably MAGDA 7. Dyslipidemia 8. hx CAD, [place] 9. encephalopathy 10. smoker 11. hx etoh use 12. NSVT: stable now 13. abnormal trop with markedly elevated CK but not much elevation of CK-MB: c/ w false + trop from muscle release and NOT [place]. 14. CVA Recommendations: will start rectal ASA until pt is able to take po meds resume ASA/ Plavix once able to take po med. abx as per IM off off ARB/ YUMIKO now due to MAGDA and hyper K. f/u renal consultations rec as well diuresis prn only. Fluid management as per renal Betablockers as tolerated. tele monitoring Thank you for his referral. I will continue to follow along with you. JUAN HOLMAN Problems: JUAN HOLMAN MD Jun 06, 2017 08:35
[2017-06-06] MEDS: BISOPROLOL 5 MG TAB PO SCH (09:00)
[2017-06-06] MEDS: SILVER SULFADIAZINE 1% 25 GM CR TOP SCH (09:00)
[2017-06-06] MEDS: CLOPIDOGREL 75 MG TAB PO SCH (09:00)
[2017-06-06] MEDS: DUTASTERIDE 0.5 MG CAP PO SCH (09:00)
[2017-06-06] MEDS: ASPIRIN (EC) 81 MG TAB PO SCH (09:00)
[2017-06-06] MEDS: RIVASTIGMINE 4.6MG/24H PATCH TRANSDERM SCH (09:08)
[2017-06-06] MEDS: ASPIRIN 300 MG SUPP PR SCH (09:08)
[2017-06-06] MEDS: NICOTINE (21 MG/24 HR) PATCH TRANSDERM SCH (09:09)
[2017-06-06 10:26] LABS: BASOPHILS % 0.3 % (0.0-2.0); EOSINOPHILS % 0.3 % (0.0-7.0); HEMATOCRIT 41.2 % (42.0-52.0); LYMPHOCYTES # 0.7 10^3/ul (0.8-2.9); LYMPHOCYTES % 10.2 % (15.0-51.0); MEAN CORPUSCULAR HEMOGLOBIN 28.1 pg (29.0-33.0); MEAN CORPUSCULAR HGB CONC 31.6 g/dl (32.0-37.0); MEAN CORPUSCULAR VOLUME 89.2 fl (82.0-101.0); MEAN PLATELET VOLUME 11.8 fl (7.4-10.4); MONOCYTE # 0.6 10^3/ul (0.3-0.9); MONOCYTES % 8.2 % (0.0-11.0); NEUTROPHIL # 5.6 10^3/ul (1.6-7.5); NEUTROPHILS % 80.7 % (39.0-77.0); PLATELET COUNT 170 10^3/UL (140-415); RED BLOOD COUNT 4.62 10^6/ul (4.70-6.10); RED CELL DISTRIBUTION WIDTH 12.2 % (11.5-14.5)
[2017-06-06 10:56] LABS: CREATININE 2.23 mg/dl (0.61-1.24); POTASSIUM 4.6 mmol/L (3.5-5.1)
--- NOTE | 2017-06-06 12:21 | CONS ---
Date/Time of Note Date/Time of Note DATE: 06/06/17 TIME: 12:18 Consult Date/Type/Reason Admit Date/Time Jun 01, 2017 at 09:07 Initial Consult Date 06/05/17 Type of Consultation: Neurology Reason for Consultation CVA Ordering Provider: CORINNA GONZALES MD Subjective non-verbal carotid duplex 70% Right ICA stenosis Objective Vital Signs Date Time Temp Pulse Resp B/P Pulse Ox O2 Delivery O2 Flow Rate FiO2 06/06/17 10:06 112 06/06/17 08:58 Nasal Cannula 4.0 06/06/17 06:30 97.6 123/74 96 06/05/17 20:53 18 06/02/17 23:18 40 Intake and Output 06/05/17 06/05/17 06/06/17 15:00 23:00 07:00 Intake Total 200 ml 50 ml Output Total 200 ml Balance 200 ml 50 ml -200 ml Exam awake and alert non-verbal he tracks examiner shakes hands CN: appear grossly intact no obvious facial asymmetry gaze preference Motor: lifts all extremities anti-gravity atleast 3/5 no obvious drift noted Reflexes 2+ throughout Results/Medications Result Diagram: 06/06/17 0935 06/06/17 0935 Results 24 hrs Laboratory Tests Test 06/06/17 09:35 White Blood Count 7.0 Red Blood Count 4.62 L Hemoglobin 13.0 L Hematocrit 41.2 L Mean Corpuscular Volume 89.2 Mean Corpuscular Hemoglobin 28.1 L Mean Corpuscular Hemoglobin Concent 31.6 L Red Cell Distribution Width 12.2 Platelet Count 170 Mean Platelet Volume 11.8 H Neutrophils % 80.7 H Lymphocytes % 10.2 L Monocytes % 8.2 Eosinophils % 0.3 Basophils % 0.3 Nucleated Red Blood Cells % 0.0 Neutrophils # 5.6 Lymphocytes # 0.7 L Monocytes # 0.6 Eosinophils # 0.0 Basophils # 0.0 Nucleated Red Blood Cells # 0.0 Sodium Level 142 Potassium Level 4.6 Chloride Level 105 Carbon Dioxide Level 29 Anion Gap 13 Blood Urea Nitrogen 51 H Creatinine 2.23 H Glucose Level 103 Calcium Level 9.0 Medications Current Medications Ondansetron HCl (Zofran Inj) 4 mg Q6H PRN IV NAUSEA AND/OR VOMITING; Start at 10:30 Acetaminophen (Tylenol Tab) 650 mg Q6H PRN PO PAIN LEVEL 1-3 OR FEVER Last administered on 06/02/17 08:59; Admin Dose 650 MG; Start 06/01/17 at 10:30 Acetaminophen/ Hydrocodone Bitart ([place] (5/325)) 1 tab Q6H PRN PO MODERATE PAIN LEVEL 4-6 Last administered on 06/01/17 11:44; Admin Dose 1 TAB; Start at 10:30 Morphine Sulfate (morphine) 2 mg Q4H PRN IV SEVERE PAIN LEVEL 7-10 Last administered on 06/02/17 23:34; Admin Dose 2 MG; Start 06/01/17 at 10:30 Docusate Sodium (Colace) 100 mg Q12H PRN PO CONSTIPATION; Start 06/01/17 at 10: 30 Magnesium Hydroxide (Milk Of Mag) 30 ml DAILY PRN PO CONSTIPATION; Start at 10:30 Sodium Biphosphate/ Sodium Phosphate (Fleet Enema) 133 ml DAILY PRN [place] CONSTIPATION; Start 06/01/17 at 10:30 Vancomycin HCl (Vanco Iv Per Pharmacy) VANCOMYCIN PER PHARMACY NOTE XX ; Start 06/01/17 at 10:30 Nitroglycerin (Nitroglycerin (Sl Tab) 0.4 Mg) 1 tab Q5M PRN SL ANGINA; Start at 10:30 Aspirin (Halfprin) 81 mg DAILY PO Last administered on 06/02/17 08:59; Admin Dose 81 MG; Start 06/02/17 at 09:00 Atorvastatin Calcium (Lipitor) 40 mg QHS PO Last administered on 06/03/17 21: 01; Admin Dose 40 MG; Start 06/01/17 at 21:00 Bisoprolol Fumarate (Zebeta) 10 mg DAILY PO Last administered on 06/02/17 09: 00; Admin Dose 10 MG; Start 06/02/17 at 09:00 Clopidogrel Bisulfate (plaVIX) 75 mg DAILY PO Last administered on 06/02/17 08 :59; Admin Dose 75 MG; Start 06/02/17 at 09:00 Dutasteride (Avodart) 0.5 mg DAILY PO Last administered on 06/02/17 08:58; Admin Dose 0.5 MG; Start 06/02/17 at 09:00 Pramipexole (Mirapex) 0.125 mg HS PO Last administered on 06/03/17 21:02; Admin Dose 0.125 MG; Start 06/01/17 at 21:00 Rivastigmine Tartrate (Exelon 4.6 Mg/ 24 Hr Patch) 1 patch DAILY TRANSDERM Last administered on 06/06/17 09:08; Admin Dose 1 PATCH; Start 06/02/17 at 09: 00 Silver Sulfadiazine (Thermazene 1% 25 Gm) 1 applic DAILY TOP ; Start 06/02/17 at 09:00 Tamsulosin HCl (Flomax) 0.4 mg HS PO Last administered on 06/03/17 21:01; Admin Dose 0.4 MG; Start 06/01/17 at 21:00 Pantoprazole 40 mg 40 mg DAILY@06 PO ; Start 06/02/17 at 06:00 Piperacillin Sod/ Tazobactam Sod (Zosyn 2.25gm/ 50ml (Pmx)) 50 ml @ 100 mls/hr Q6 IVPB Last administered on 06/06/17 11:47; Admin Dose 100 MLS/HR; Start at 18:00 Tramadol HCl (Ultram) 50 mg Q6H PRN PO PAIN Last administered on 06/02/17 20: 36; Admin Dose 50 MG; Start 06/01/17 at 22:00 Aspirin (Aspirin) 300 mg DAILY [place] Last administered on 06/06/17 09:08; Admin Dose 300 MG; Start 06/05/17 at 17:00 Nicotine 1 patch 1 patch DAILY TRANSDERM Last administered on 06/06/17 09:09; Admin Dose 1 PATCH; Start 06/05/17 at 18:30 Vancomycin HCl/ Sodium Chloride (Vancocin/NS) 150 ml @ 75 mls/hr Q36H IVPB ; Start 06/06/17 at 22:00 Assessment/Plan Chief Complaint/Hosp Course 86 yo male admitted with pneumonia, encephalopathy, acute on chronic heart failure with tiny embolic appearing infarcts right parietal, right temporal region on MRI. ECHO EF: 30% with akinetic segments on dual antiplatelet therapy. Carotid Duplex: 70% Right ICA stenosis Recommendations: embolic event from severe cardiomyopathy, possible embolic event from large vessel (right carotid stenosis) obtain MRA Neck w/o contrast unable to receive CTA due to renal insufficiency continue antiplatelet, continue tele monitoring for afib, NPO can give ASA 300 mg CO for now LDL and Hemoglobin A1C are at goal continue current medications maintain normotensive and afebrile, avoid hypotension avoid overly sedating medications DVT ppx PT/OT/Speech evaluation Problems: STEPHEN CRABTREE MD Jun 06, 2017 12:21
--- NOTE | 2017-06-06 12:37 | CONS ---
Date/Time of Note Date/Time of Note DATE: 06/06/17 TIME: 12:35 Assessment/Plan Assessment/Plan Additional Assessment/Plan Assessment and recommendations; 1. Patient admitted with combination of CHF as well as right lower lobe pneumonia with interval improvement. 2. Cardiomyopathy 3. Chronic renal insufficiency. 4. Negative MRI of the brain yesterday for any evidence of CVA. Continue current treatment. Add Lasix 40 mg IV every 12 hours. Follow-up chest x-ray in 48 hours. Consultation Date/Type/Reason Admit Date/Time Jun 01, 2017 at 09:07 Initial Consult Date 06/01/17 Type of Consultation: Pulmonary Referring Provider: CORINNA GONZALES MD 24 HR Interval Summary Free Text/Dictation Patient condition stable. Remains awake and alert. Shortness of breath is markedly improved. General exam; elderly male, awake. Currently in no distress. Exam/Review of Systems Vital Signs Vitals Vital Signs Date Time Temp Pulse Resp B/P Pulse Ox O2 Delivery O2 Flow Rate FiO2 06/06/17 12:19 66 06/06/17 08:58 Nasal Cannula 4.0 06/06/17 06:30 97.6 123/74 96 06/05/17 20:53 18 06/02/17 23:18 40 Intake and Output 06/05/17 06/05/17 06/06/17 15:00 23:00 07:00 Intake Total 200 ml 50 ml Output Total 200 ml Balance 200 ml 50 ml -200 ml Exam HEENT exam; supple neck, positive JVD. No lymphadenopathy. Midline trachea. No thyromegaly. Patient has a right intraocular lens implant. Patient is edentulous. Chest exam; diminished breath sounds bilaterally. No added sounds. S1-S2 audible, grade 2/6 systolic ejection murmur best heard in the aortic area. Regular rhythm. Abdomen exam; soft, nontender. No organomegaly. Bowel sounds audible. Extremity exam; no peripheral edema. No clubbing. Pulses 1+ bilaterally. SALES ORDER ADMINISTRATOR exam; no focal deficit. Results Result Diagram: 06/06/17 0935 06/06/17 0935 Results 24 hrs Laboratory Tests Test 06/06/17 09:35 White Blood Count 7.0 Red Blood Count 4.62 L Hemoglobin 13.0 L Hematocrit 41.2 L Mean Corpuscular Volume 89.2 Mean Corpuscular Hemoglobin 28.1 L Mean Corpuscular Hemoglobin Concent 31.6 L Red Cell Distribution Width 12.2 Platelet Count 170 Mean Platelet Volume 11.8 H Neutrophils % 80.7 H Lymphocytes % 10.2 L Monocytes % 8.2 Eosinophils % 0.3 Basophils % 0.3 Nucleated Red Blood Cells % 0.0 Neutrophils # 5.6 Lymphocytes # 0.7 L Monocytes # 0.6 Eosinophils # 0.0 Basophils # 0.0 Nucleated Red Blood Cells # 0.0 Sodium Level 142 Potassium Level 4.6 Chloride Level 105 Carbon Dioxide Level 29 Anion Gap 13 Blood Urea Nitrogen 51 H Creatinine 2.23 H Glucose Level 103 Calcium Level 9.0 Medications Medications Current Medications Ondansetron HCl (Zofran Inj) 4 mg Q6H PRN IV NAUSEA AND/OR VOMITING; Start at 10:30 Acetaminophen (Tylenol Tab) 650 mg Q6H PRN PO PAIN LEVEL 1-3 OR FEVER Last administered on 06/02/17 08:59; Admin Dose 650 MG; Start 06/01/17 at 10:30 Acetaminophen/ Hydrocodone Bitart ([place] (5/325)) 1 tab Q6H PRN PO MODERATE PAIN LEVEL 4-6 Last administered on 06/01/17 11:44; Admin Dose 1 TAB; Start at 10:30 Morphine Sulfate (morphine) 2 mg Q4H PRN IV SEVERE PAIN LEVEL 7-10 Last administered on 06/02/17 23:34; Admin Dose 2 MG; Start 06/01/17 at 10:30 Docusate Sodium (Colace) 100 mg Q12H PRN PO CONSTIPATION; Start 06/01/17 at 10: 30 Magnesium Hydroxide (Milk Of Mag) 30 ml DAILY PRN PO CONSTIPATION; Start at 10:30 Sodium Biphosphate/ Sodium Phosphate (Fleet Enema) 133 ml DAILY PRN [place] CONSTIPATION; Start 06/01/17 at 10:30 Vancomycin HCl (Vanco Iv Per Pharmacy) VANCOMYCIN PER PHARMACY NOTE XX ; Start 06/01/17 at 10:30 Nitroglycerin (Nitroglycerin (Sl Tab) 0.4 Mg) 1 tab Q5M PRN SL ANGINA; Start at 10:30 Aspirin (Halfprin) 81 mg DAILY PO Last administered on 06/02/17 08:59; Admin Dose 81 MG; Start 06/02/17 at 09:00 Atorvastatin Calcium (Lipitor) 40 mg QHS PO Last administered on 06/03/17 21: 01; Admin Dose 40 MG; Start 06/01/17 at 21:00 Bisoprolol Fumarate (Zebeta) 10 mg DAILY PO Last administered on 06/02/17 09: 00; Admin Dose 10 MG; Start 06/02/17 at 09:00 Clopidogrel Bisulfate (plaVIX) 75 mg DAILY PO Last administered on 06/02/17 08 :59; Admin Dose 75 MG; Start 06/02/17 at 09:00 Dutasteride (Avodart) 0.5 mg DAILY PO Last administered on 06/02/17 08:58; Admin Dose 0.5 MG; Start 06/02/17 at 09:00 Pramipexole (Mirapex) 0.125 mg HS PO Last administered on 06/03/17 21:02; Admin Dose 0.125 MG; Start 06/01/17 at 21:00 Rivastigmine Tartrate (Exelon 4.6 Mg/ 24 Hr Patch) 1 patch DAILY TRANSDERM Last administered on 06/06/17 09:08; Admin Dose 1 PATCH; Start 06/02/17 at 09: 00 Silver Sulfadiazine (Thermazene 1% 25 Gm) 1 applic DAILY TOP ; Start 06/02/17 at 09:00 Tamsulosin HCl (Flomax) 0.4 mg HS PO Last administered on 06/03/17 21:01; Admin Dose 0.4 MG; Start 06/01/17 at 21:00 Pantoprazole 40 mg 40 mg DAILY@06 PO ; Start 06/02/17 at 06:00 Piperacillin Sod/ Tazobactam Sod (Zosyn 2.25gm/ 50ml (Pmx)) 50 ml @ 100 mls/hr Q6 IVPB Last administered on 06/06/17 11:47; Admin Dose 100 MLS/HR; Start at 18:00 Tramadol HCl (Ultram) 50 mg Q6H PRN PO PAIN Last administered on 06/02/17 20: 36; Admin Dose 50 MG; Start 06/01/17 at 22:00 Aspirin (Aspirin) 300 mg DAILY [place] Last administered on 06/06/17 09:08; Admin Dose 300 MG; Start 06/05/17 at 17:00 Nicotine 1 patch 1 patch DAILY TRANSDERM Last administered on 06/06/17t 09:09; Admin Dose 1 PATCH; Start 06/05/17 at 18:30 Vancomycin HCl/ Sodium Chloride (Vancocin/NS) 150 ml @ 75 mls/hr Q36H IVPB ; Start 06/06/17 at 22:00 FRANSICO KAM Jun 06, 2017 12:37
--- NOTE | 2017-06-06 13:56 | RADRPT ---
PROCEDURE: MRA Neck without contrast. CLINICAL INDICATION: Stroke. Altered mental status. TECHNIQUE: An MRA of the major cervical arteries was performed utilizing axial 2D time of flight a nd 3-D [id number] through the carotid bifurcations. Source and MIP images were reviewed. COMPARISON: Carotid ultrasound 06/05/2017. FINDINGS: Multiple images are degraded by motion. The origins of the great vessels off the aortic arch are not included for evaluation. There is high-grade stenosis of the proximal right internal carotid artery estimated at least 80% b y NASCET criteria. The common carotid and left internal carotid artery are patent without hemodynami west significant stenosis by NASCET criteria. Direct measurements of vessel diameters was made in r eference to measurements of the distal internal carotid artery diameter. Bilateral vertebral arteri es are patent without high-grade stenosis. IMPRESSION: 1. Suboptimal motion degraded study. 2. 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 3. Otherwise no significant stenosis in the remainder of visualized major neck arteries. RPTAT: HH .Emmie Davidson MD, MD Date Time Electronically viewed and signed by .Emmie Davidson MD, on 06/06/2017 13:55 .N/
[2017-06-06] MEDS: FUROSEMIDE 40 MG INJ IV SCH ×2 (14:00→17:32)
--- NOTE | 2017-06-06 16:27 | PN ---
Date/Time of Note Date/Time of Note DATE: 06/06/17 TIME: 16:26 Assessment/Plan VTE Prophylaxis VTE Prophylaxis Intervention: SCD's Lines/Catheters IV Catheter Type (from Nrs): Saline Lock Urinary Cath still in place: No Assessment/Plan Assessment/Plan 86 yo M with dementia, chronic respiratory insufficiency admitted for SOB 2/2 HCAP and likely acute on chronic heart failure (EF 30%) also found to have MAGDA on CKD and NSTEMI with incidental finding of acute CVA #CVA: neuro on cs, likely cardioembolic origin. tele only with SR PT/OT/ST ongoing MRA with significant R ICA stenosis-->CM cs for outpatient vascular eval cont DAPT, statin, BP control #HCAP: cont abx, anticipate 7 day course. pt back on home O2 (.15-->) #MAGDA on CKD: renal on consult, Cr stable #NSTEMI: likely from demand, cardiology following #HL, HTN, h/o CAD cont zetia, asa/plavix, home BP meds ARU cs placed previously Subjective 24 Hr Interval Summary Free Text/Dictation Pt seen very briefly while being wheeled down to MRA Exam/Review of Systems Vital Signs Vitals Vital Signs Date Time Temp Pulse Resp B/P Pulse Ox O2 Delivery O2 Flow Rate FiO2 06/06/17 16:21 74 06/06/17 15:51 98.7 18 121/56 96 06/06/17 08:58 Nasal Cannula 4.0 06/02/17 23:18 40 Intake and Output 06/05/17 06/05/17 06/06/17 15:00 23:00 07:00 Intake Total 200 ml 50 ml Output Total 200 ml Balance 200 ml 50 ml -200 ml Exam nad laying on gurney resp nonlabored abd nondistended no rashes Results Result Diagram: 06/06/17 0935 06/06/17 0935 Results 24 hrs Laboratory Tests Test 06/06/17 09:35 White Blood Count 7.0 Red Blood Count 4.62 L Hemoglobin 13.0 L Hematocrit 41.2 L Mean Corpuscular Volume 89.2 Mean Corpuscular Hemoglobin 28.1 L Mean Corpuscular Hemoglobin Concent 31.6 L Red Cell Distribution Width 12.2 Platelet Count 170 Mean Platelet Volume 11.8 H Neutrophils % 80.7 H Lymphocytes % 10.2 L Monocytes % 8.2 Eosinophils % 0.3 Basophils % 0.3 Nucleated Red Blood Cells % 0.0 Neutrophils # 5.6 Lymphocytes # 0.7 L Monocytes # 0.6 Eosinophils # 0.0 Basophils # 0.0 Nucleated Red Blood Cells # 0.0 Sodium Level 142 Potassium Level 4.6 Chloride Level 105 Carbon Dioxide Level 29 Anion Gap 13 Blood Urea Nitrogen 51 H Creatinine 2.23 H Glucose Level 103 Calcium Level 9.0 Medications Medications Current Medications Ondansetron HCl (Zofran Inj) 4 mg Q6H PRN IV NAUSEA AND/OR VOMITING; Start at 10:30 Acetaminophen (Tylenol Tab) 650 mg Q6H PRN PO PAIN LEVEL 1-3 OR FEVER Last administered on 06/02/17 08:59; Admin Dose 650 MG; Start 06/01/17 at 10:30 Acetaminophen/ Hydrocodone Bitart ([place] (5/325)) 1 tab Q6H PRN PO MODERATE PAIN LEVEL 4-6 Last administered on 06/01/17 11:44; Admin Dose 1 TAB; Start at 10:30 Morphine Sulfate (morphine) 2 mg Q4H PRN IV SEVERE PAIN LEVEL 7-10 Last administered on 06/02/17 23:34; Admin Dose 2 MG; Start 06/01/17 at 10:30 Docusate Sodium (Colace) 100 mg Q12H PRN PO CONSTIPATION; Start 06/01/17 at 10: 30 Magnesium Hydroxide (Milk Of Mag) 30 ml DAILY PRN PO CONSTIPATION; Start at 10:30 Sodium Biphosphate/ Sodium Phosphate (Fleet Enema) 133 ml DAILY PRN [place] CONSTIPATION; Start 06/01/17 at 10:30 Vancomycin HCl (Vanco Iv Per Pharmacy) VANCOMYCIN PER PHARMACY NOTE XX ; Start 06/01/17 at 10:30 Nitroglycerin (Nitroglycerin (Sl Tab) 0.4 Mg) 1 tab Q5M PRN SL ANGINA; Start at 10:30 Aspirin (Halfprin) 81 mg DAILY PO Last administered on 06/02/17 08:59; Admin Dose 81 MG; Start 06/02/17 at 09:00 Atorvastatin Calcium (Lipitor) 40 mg QHS PO Last administered on 06/03/17 21: 01; Admin Dose 40 MG; Start 06/01/17 at 21:00 Bisoprolol Fumarate (Zebeta) 10 mg DAILY PO Last administered on 06/02/17 09: 00; Admin Dose 10 MG; Start 06/02/17 at 09:00 Clopidogrel Bisulfate (plaVIX) 75 mg DAILY PO Last administered on 06/02/17 08 :59; Admin Dose 75 MG; Start 06/02/17 at 09:00 Dutasteride (Avodart) 0.5 mg DAILY PO Last administered on 06/02/17 08:58; Admin Dose 0.5 MG; Start 06/02/17 at 09:00 Pramipexole (Mirapex) 0.125 mg HS PO Last administered on 06/03/17 21:02; Admin Dose 0.125 MG; Start 06/01/17 at 21:00 Rivastigmine Tartrate (Exelon 4.6 Mg/ 24 Hr Patch) 1 patch DAILY TRANSDERM Last administered on 06/06/17 09:08; Admin Dose 1 PATCH; Start 06/02/17 at 09: 00 Silver Sulfadiazine (Thermazene 1% 25 Gm) 1 applic DAILY TOP ; Start 06/02/17 at 09:00 Tamsulosin HCl (Flomax) 0.4 mg HS PO Last administered on 06/03/17 21:01; Admin Dose 0.4 MG; Start 06/01/17 at 21:00 Pantoprazole 40 mg 40 mg DAILY@06 PO ; Start 06/02/17 at 06:00 Piperacillin Sod/ Tazobactam Sod (Zosyn 2.25gm/ 50ml (Pmx)) 50 ml @ 100 mls/hr Q6 IVPB Last administered on 06/06/17 11:47; Admin Dose 100 MLS/HR; Start at 18:00 Tramadol HCl (Ultram) 50 mg Q6H PRN PO PAIN Last administered on 06/02/17 20: 36; Admin Dose 50 MG; Start 06/01/17 at 22:00 Aspirin (Aspirin) 300 mg DAILY [place] Last administered on 06/06/17 09:08; Admin Dose 300 MG; Start 06/05/17 at 17:00 Nicotine 1 patch 1 patch DAILY TRANSDERM Last administered on 06/06/17 09:09; Admin Dose 1 PATCH; Start 06/05/17 at 18:30 Vancomycin HCl/ Sodium Chloride (Vancocin/NS) 150 ml @ 75 mls/hr Q36H IVPB ; Start 06/06/17 at 22:00 CORINNA GONZALES MD Jun 06, 2017 16:27
[2017-06-06] MEDS ORDERED: SOD CHLORIDE 0.9% 1,000 ML IV SCH (20:00)
[2017-06-06] MEDS: TAMSULOSIN (SR) 0.4 MG CAP PO SCH (20:30)
[2017-06-06] MEDS: ATORVASTATIN 40 MG TAB PO SCH (20:30)
[2017-06-06] MEDS: PRAMIPEXOLE 0.125 MG TAB PO SCH (20:30)
[2017-06-06] MEDS: VANCOMYCIN 750 MG in SOD CHLORIDE 0.9% 150 ML IVPB SCH (22:11)
[2017-06-07] VITALS (10 sets, daily range): BP systolic 109–158; BP diastolic 51–84; PULSE 61–87; RESP 18–19
[2017-06-07] MEDS: PIPER-TAZO 2.25 GM (PMX) 50 ML IVPB SCH ×4 (00:24→17:09)
[2017-06-07] MEDS: PANTOPRAZOLE (EC) 40 MG TAB PO SCH (06:00)
[2017-06-07] MEDS: FUROSEMIDE 40 MG INJ IV SCH ×2 (06:02→17:09)
--- NOTE | 2017-06-07 08:15 | CONS ---
Date/Time of Note Date/Time of Note DATE: 06/07/17 TIME: 08:13 Consult Date/Type/Reason Admit Date/Time Jun 01, 2017 at 09:07 Initial Consult Date 06/01/17 Type of Consultation: cardiology Ordering Provider: CORINNA GONZALES MD Subjective cardiology follow up D/W staff and rhythm was reviewed. pt remains in NSR but with multiple episodes of NSVT . NO AFIB pt is more alert and wants to eat. pt is still NPO . pt still gets anxious and wants to drink and eat. . OBJECTIVE: General: thin man in no resp distress HEENT: NC/AT. pupils are equal. round. NECK: NO JVD. no stridor. CV: RRR. systolic murmur grade III./; no gallop or rubs. PULM: +rhonchi right side mostly GI: SOFT, NT, ND, no rebound or guarding Extremity: no significant LE edema. no clubbing. neuro: awake and OX 1 at least. Psych: agitated rectal: deferred : normal male ECG reviewed personally NSR inf infarct. ant infarct age undetermined. CXR reviewed. focal infiltrate ECHO reviewed: 1. Normal left ventricular cavity size. Moderate concentric left ventricular hypertrophy. Severe left ventricular systolic dysfunction. Ejection fraction is visually estimated at 30 %. Abnormal Diastolic Function. These segments of the LV are hypokinetic basal anterior segment, mid anterior segment, apical anterior segment. , anterolateral mid segment. , apical lateral segment. , inferior apex segment, inferior mid segment, inferoseptum mid segment. , anteroseptum mid segment, apex. and apical septum. 2. There is mild enlargement of left atrium. 3. Mitral valve is not well visualized. Mitral valve leaflets appear mildly thickened. Severe mitral annular calcification. Trace mitral regurgitation. 4. Aortic valve not well visualized. Aortic cusps appear mildly calcified. Trace to mild aortic valve regurgitation. 5. Normal appearance of the tricuspid valve. Estimated peak PA systolic pressure 40 mmHg. There is mild tricuspid regurgitation. 6. Normal size and normal respiratory collapse consistent with normal right atrial pressure. Objective Vital Signs Date Time Temp Pulse Resp B/P Pulse Ox O2 Delivery O2 Flow Rate FiO2 06/07/17 04:00 97.8 66 18 121/84 98 06/07/17 00:33 4.0 06/06/17 20:00 Nasal Cannula Intake and Output 06/06/17 06/06/17 06/07/17 15:00 23:00 07:00 Intake Total 150 ml 380 ml Output Total 500 ml Balance -350 ml 380 ml Results/Medications Result Diagram: 06/06/1735 06/06/17 0935 Results 24 hrs Laboratory Tests Test 06/06/17 09:35 White Blood Count 7.0 Red Blood Count 4.62 L Hemoglobin 13.0 L Hematocrit 41.2 L Mean Corpuscular Volume 89.2 Mean Corpuscular Hemoglobin 28.1 L Mean Corpuscular Hemoglobin Concent 31.6 L Red Cell Distribution Width 12.2 Platelet Count 170 Mean Platelet Volume 11.8 H Neutrophils % 80.7 H Lymphocytes % 10.2 L Monocytes % 8.2 Eosinophils % 0.3 Basophils % 0.3 Nucleated Red Blood Cells % 0.0 Neutrophils # 5.6 Lymphocytes # 0.7 L Monocytes # 0.6 Eosinophils # 0.0 Basophils # 0.0 Nucleated Red Blood Cells # 0.0 Sodium Level 142 Potassium Level 4.6 Chloride Level 105 Carbon Dioxide Level 29 Anion Gap 13 Blood Urea Nitrogen 51 H Creatinine 2.23 H Glucose Level 103 Calcium Level 9.0 Medications Current Medications Ondansetron HCl (Zofran Inj) 4 mg Q6H PRN IV NAUSEA AND/OR VOMITING; Start at 10:30 Acetaminophen (Tylenol Tab) 650 mg Q6H PRN PO PAIN LEVEL 1-3 OR FEVER Last administered on 06/02/17 08:59; Admin Dose 650 MG; Start 06/01/17 at 10:30 Acetaminophen/ Hydrocodone Bitart ([place] (5/325)) 1 tab Q6H PRN PO MODERATE PAIN LEVEL 4-6 Last administered on 06/01/17 11:44; Admin Dose 1 TAB; Start at 10:30 Morphine Sulfate (morphine) 2 mg Q4H PRN IV SEVERE PAIN LEVEL 7-10 Last administered on 06/02/17 23:34; Admin Dose 2 MG; Start 06/01/17 at 10:30 Docusate Sodium (Colace) 100 mg Q12H PRN PO CONSTIPATION; Start 06/01/17 at 10: 30 Magnesium Hydroxide (Milk Of Mag) 30 ml DAILY PRN PO CONSTIPATION; Start at 10:30 Sodium Biphosphate/ Sodium Phosphate (Fleet Enema) 133 ml DAILY PRN [place] CONSTIPATION; Start 06/01/17 at 10:30 Vancomycin HCl (Vanco Iv Per Pharmacy) VANCOMYCIN PER PHARMACY NOTE XX ; Start 06/01/17 at 10:30 Nitroglycerin (Nitroglycerin (Sl Tab) 0.4 Mg) 1 tab Q5M PRN SL ANGINA; Start at 10:30 Aspirin (Halfprin) 81 mg DAILY PO Last administered on 06/02/17 08:59; Admin Dose 81 MG; Start 06/02/17 at 09:00 Atorvastatin Calcium (Lipitor) 40 mg QHS PO Last administered on 06/03/17 21: 01; Admin Dose 40 MG; Start 06/01/17 at 21:00 Bisoprolol Fumarate (Zebeta) 10 mg DAILY PO Last administered on 06/02/17 09: 00; Admin Dose 10 MG; Start 06/02/17 at 09:00 Clopidogrel Bisulfate (plaVIX) 75 mg DAILY PO Last administered on 06/02/17 08 :59; Admin Dose 75 MG; Start 06/02/17 at 09:00 Dutasteride (Avodart) 0.5 mg DAILY PO Last administered on 06/02/17 08:58; Admin Dose 0.5 MG; Start 06/02/17 at 09:00 Pramipexole (Mirapex) 0.125 mg HS PO Last administered on 06/03/17 21:02; Admin Dose 0.125 MG; Start 06/01/17 at 21:00 Rivastigmine Tartrate (Exelon 4.6 Mg/ 24 Hr Patch) 1 patch DAILY TRANSDERM Last administered on 06/06/17 09:08; Admin Dose 1 PATCH; Start 06/02/17 at 09: 00 Silver Sulfadiazine (Thermazene 1% 25 Gm) 1 applic DAILY TOP ; Start 06/02/17 at 09:00 Tamsulosin HCl (Flomax) 0.4 mg HS PO Last administered on 06/03/17 21:01; Admin Dose 0.4 MG; Start 06/01/17 at 21:00 Pantoprazole 40 mg 40 mg DAILY@06 PO ; Start 06/02/17 at 06:00 Piperacillin Sod/ Tazobactam Sod (Zosyn 2.25gm/ 50ml (Pmx)) 50 ml @ 100 mls/hr Q6 IVPB Last administered on 06/07/17 06:03; Admin Dose 100 MLS/HR; Start at 18:00 Tramadol HCl (Ultram) 50 mg Q6H PRN PO PAIN Last administered on 06/02/17 20: 36; Admin Dose 50 MG; Start 06/01/17 at 22:00 Aspirin (Aspirin) 300 mg DAILY [place] Last administered on 06/06/17 09:08; Admin Dose 300 MG; Start 06/05/17 at 17:00 Nicotine 1 patch 1 patch DAILY TRANSDERM Last administered on 06/06/17 09:09; Admin Dose 1 PATCH; Start 06/05/17 at 18:30 Vancomycin HCl 750 mg/Sodium Chloride 150 ml @ 75 mls/hr Q36H IVPB Last administered on 06/06/17 22:11; Admin Dose 75 MLS/HR; Start 06/06/17 at 22:00 Sodium Chloride (NS) 1,000 ml @ 40 mls/hr Q24H IV Last administered on 20:23; Admin Dose 40 MLS/HR; Start 06/06/17 at 20:00 Assessment/Plan Chief Complaint/Hosp Course Assessment: 1. abnormal ECG: but c/w old but not acute STEMI 2. pneumonia 3. most likely cardiomyopathy 4. HTN 5. hyper K 6. Renal failure; probably MAGDA 7. Dyslipidemia 8. hx CAD, [place] 9. encephalopathy 10. smoker 11. hx etoh use 12. NSVT: stable now 13. abnormal trop with markedly elevated CK but not much elevation of CK-MB: c/ w false + trop from muscle release and NOT [place]. 14. CVA 15. dysphagia: Recommendations: will cont rectal ASA until pt is able to take po meds resume ASA/ Plavix once able to take po med. abx as per IM off off ARB/ YUMIKO now due to MAGDA and hyper K. f/u renal consultations rec as well diuresis prn only. currentl stable. Fluid management as per renal [employer] as tolerated once able to take po meds. tele monitoring Thank you for his referral. I will continue to follow along with you. JUAN HOLMAN Problems: JUAN HOLMAN MD Jun 07, 2017 08:15
[2017-06-07] MEDS: ASPIRIN (EC) 81 MG TAB PO SCH (08:48)
[2017-06-07] MEDS: DUTASTERIDE 0.5 MG CAP PO SCH (08:48)
[2017-06-07] MEDS: BISOPROLOL 5 MG TAB PO SCH (08:49)
[2017-06-07] MEDS: CLOPIDOGREL 75 MG TAB PO SCH (08:49)
[2017-06-07] MEDS: SILVER SULFADIAZINE 1% 25 GM CR TOP SCH (09:00)
[2017-06-07 09:47] LABS: BASOPHILS % 0.4 % (0.0-2.0); EOSINOPHILS # 0.1 10^3/ul (0.0-0.5); EOSINOPHILS % 0.7 % (0.0-7.0); HEMATOCRIT 44.4 % (42.0-52.0); HEMOGLOBIN 14.3 g/dl (14.0-18.0); LYMPHOCYTES # 0.8 10^3/ul (0.8-2.9); LYMPHOCYTES % 11.2 % (15.0-51.0); MEAN CORPUSCULAR HGB CONC 32.2 g/dl (32.0-37.0); MEAN CORPUSCULAR VOLUME 87.1 fl (82.0-101.0); MEAN PLATELET VOLUME 11.4 fl (7.4-10.4); MONOCYTE # 0.5 10^3/ul (0.3-0.9); MONOCYTES % 6.8 % (0.0-11.0); NEUTROPHIL # 5.8 10^3/ul (1.6-7.5); NEUTROPHILS % 80.5 % (39.0-77.0); PLATELET COUNT 222 10^3/UL (140-415); RED CELL DISTRIBUTION WIDTH 12.1 % (11.5-14.5); WHITE BLOOD COUNT 7.3 10^3/ul (4.8-10.8)
[2017-06-07] MEDS: ASPIRIN 300 MG SUPP PR SCH (09:48)
[2017-06-07] MEDS: NICOTINE (21 MG/24 HR) PATCH TRANSDERM SCH (09:48)
[2017-06-07] MEDS: RIVASTIGMINE 4.6MG/24H PATCH TRANSDERM SCH (09:48)
[2017-06-07 10:06] LABS: CALCIUM 9.5 mg/dl (8.4-10.2); CREATININE 2.38 mg/dl (0.61-1.24); POTASSIUM 4.1 mmol/L (3.5-5.1)
[2017-06-07] MEDS ORDERED: BARIUM SULFATE 135 ML (E-Z HD) PO ONE (10:23)
[2017-06-07] MEDS ORDERED: BARIUM SULFATE 454 GM TUBE (E-Z PASTE) PO ONE (10:23)
--- NOTE | 2017-06-07 12:31 | CONS ---
Date/Time of Note Date/Time of Note DATE: 06/07/17 TIME: 12:28 Consult Date/Type/Reason Admit Date/Time Jun 01, 2017 at 09:07 Initial Consult Date 06/05/17 Type of Consultation: pulm Ordering Provider: CORINNA GONZALES MD Subjective Sleeping comfortable this morning denies shortness of breath. Objective Vital Signs Date Time Temp Pulse Resp B/P Pulse Ox O2 Delivery O2 Flow Rate FiO2 06/07/17 12:25 76 06/07/17 11:51 98.4 19 140/65 94 06/07/17 08:55 Nasal Cannula 3.0 Intake and Output 06/06/17 06/06/17 06/07/17 15:00 23:00 07:00 Intake Total 150 ml 380 ml Output Total 500 ml Balance -350 ml 380 ml Exam GENERAL: VITAL SIGNS: per chart NECK: Supple. No JVD or lymphadenopathy. CARDIAC EXAM: S1, S2. No added sounds or murmurs. CHEST: clear bilaterally, No added sounds, rales or wheezes ABDOMEN: Soft, nontender. No guarding or rebound. EXTREMITIES: No cyanosis, clubbing or edema. NEUROLOGIC: Generalized weakness. No focal deficits. Elderly Syrian gentleman appears comfortable at rest Results/Medications Result Diagram: 06/07/1715 06/07/[address] chest Bilateral infiltrates small effusion noted. Laboratory Tests Test 06/07/17 09:15 White Blood Count 7.3 Red Blood Count 5.10 Hemoglobin 14.3 Hematocrit 44.4 Mean Corpuscular Volume 87.1 Mean Corpuscular Hemoglobin 28.0 L Mean Corpuscular Hemoglobin Concent 32.2 Red Cell Distribution Width 12.1 Platelet Count 222 # Mean Platelet Volume 11.4 H Neutrophils % 80.5 H Lymphocytes % 11.2 L Monocytes % 6.8 Eosinophils % 0.7 Basophils % 0.4 Nucleated Red Blood Cells % 0.0 Neutrophils # 5.8 Lymphocytes # 0.8 Monocytes # 0.5 Eosinophils # 0.1 Basophils # 0.0 Nucleated Red Blood Cells # 0.0 Sodium Level 145 H Potassium Level 4.1 Chloride Level 104 Carbon Dioxide Level 29 Anion Gap 16 Blood Urea Nitrogen 57 H Creatinine 2.38 H Glucose Level 100 Calcium Level 9.5 Medications Current Medications Ondansetron HCl (Zofran Inj) 4 mg Q6H PRN IV NAUSEA AND/OR VOMITING; Start at 10:30 Acetaminophen (Tylenol Tab) 650 mg Q6H PRN PO PAIN LEVEL 1-3 OR FEVER Last administered on 06/02/17 08:59; Admin Dose 650 MG; Start 06/01/17 at 10:30 Acetaminophen/ Hydrocodone Bitart ([place] (5/325)) 1 tab Q6H PRN PO MODERATE PAIN LEVEL 4-6 Last administered on 06/01/17 11:44; Admin Dose 1 TAB; Start at 10:30 Morphine Sulfate (morphine) 2 mg Q4H PRN IV SEVERE PAIN LEVEL 7-10 Last administered on 06/02/17 23:34; Admin Dose 2 MG; Start 06/01/17 at 10:30 Docusate Sodium (Colace) 100 mg Q12H PRN PO CONSTIPATION; Start 06/01/17 at 10: 30 Magnesium Hydroxide (Milk Of Mag) 30 ml DAILY PRN PO CONSTIPATION; Start at 10:30 Sodium Biphosphate/ Sodium Phosphate (Fleet Enema) 133 ml DAILY PRN [place] CONSTIPATION; Start 06/01/17 at 10:30 Vancomycin HCl (Vanco Iv Per Pharmacy) VANCOMYCIN PER PHARMACY NOTE XX ; Start 06/01/17 at 10:30 Nitroglycerin (Nitroglycerin (Sl Tab) 0.4 Mg) 1 tab Q5M PRN SL ANGINA; Start at 10:30 Aspirin (Halfprin) 81 mg DAILY PO Last administered on 06/02/17 08:59; Admin Dose 81 MG; Start 06/02/17 at 09:00 Atorvastatin Calcium (Lipitor) 40 mg QHS PO Last administered on 06/03/17 21: 01; Admin Dose 40 MG; Start 06/01/17 at 21:00 Bisoprolol Fumarate (Zebeta) 10 mg DAILY PO Last administered on 06/02/17 09: 00; Admin Dose 10 MG; Start 06/02/17 at 09:00 Clopidogrel Bisulfate (plaVIX) 75 mg DAILY PO Last administered on 06/02/17 08 :59; Admin Dose 75 MG; Start 06/02/17 at 09:00 Dutasteride (Avodart) 0.5 mg DAILY PO Last administered on 06/02/17 08:58; Admin Dose 0.5 MG; Start 06/02/17 at 09:00 Pramipexole (Mirapex) 0.125 mg HS PO Last administered on 06/03/17 21:02; Admin Dose 0.125 MG; Start 06/01/17 at 21:00 Rivastigmine Tartrate (Exelon 4.6 Mg/ 24 Hr Patch) 1 patch DAILY TRANSDERM Last administered on 06/07/17 09:48; Admin Dose 1 PATCH; Start 06/02/17 at 09: 00 Silver Sulfadiazine (Thermazene 1% 25 Gm) 1 applic DAILY TOP ; Start 06/02/17 at 09:00 Tamsulosin HCl (Flomax) 0.4 mg HS PO Last administered on 06/03/17 21:01; Admin Dose 0.4 MG; Start 06/01/17 at 21:00 Pantoprazole 40 mg 40 mg DAILY@06 PO ; Start 06/02/17 at 06:00 Piperacillin Sod/ Tazobactam Sod (Zosyn 2.25gm/ 50ml (Pmx)) 50 ml @ 100 mls/hr Q6 IVPB Last administered on 06/07/17 11:28; Admin Dose 100 MLS/HR; Start at 18:00 Tramadol HCl (Ultram) 50 mg Q6H PRN PO PAIN Last administered on 06/02/17 20: 36; Admin Dose 50 MG; Start 06/01/17 at 22:00 Aspirin (Aspirin) 300 mg DAILY [place] Last administered on 06/07/17 09:48; Admin Dose 300 MG; Start 06/05/17 at 17:00 Nicotine 1 patch 1 patch DAILY TRANSDERM Last administered on 06/07/17 09:48; Admin Dose 1 PATCH; Start 06/05/17 at 18:30 Vancomycin HCl 750 mg/Sodium Chloride 150 ml @ 75 mls/hr Q36H IVPB Last administered on 06/06/17 22:11; Admin Dose 75 MLS/HR; Start 06/06/17 at 22:00 Sodium Chloride (NS) 1,000 ml @ 40 mls/hr Q24H IV Last administered on 20:23; Admin Dose 40 MLS/HR; Start 06/06/17 at 20:00 Assessment/Plan Chief Complaint/Hosp Course Assessment 1. Probable healthcare associated pneumonia 2. Acute on chronic systolic dysfunction 3. Carotid stenosis on recent MRA 4. Dementia 5. Renal insufficiency Plan 1. Continue aspiration precautions 2. Monitor chest x-ray anticipate radiographic improvement over the next few weeks 3. Monitor renal function Consider transfer to long term facility Problems: MARQUES SINGLETON MD, [facility] Jun 07, 2017 12:31
--- NOTE | 2017-06-07 15:56 | RADRPT ---
PROCEDURE: Video swallowing study CLINICAL INDICATION: Dysphagia TECHNIQUE: Modified barium swallowing study was performed at [facility]. Fluoros copy was utilized for the procedure. Imaging was confined to the oral pharyngeal and cervical phase s of the swallowing mechanism. Fluoroscopic guidance was utilized during a modified barium swallowi ng study with multiple swallows of thin and thick liquids. Site of service: Inpatient COMPARISON: None available FINDINGS: 02:54 seconds of fluoroscopy time was utilized during the procedure. Puree: inconsistent penetration; material remains above the airway and is ejected from airway [place] thick by spoon: no penetration [place] thick by cup: deep penetration, doesn't reach vocal folds; material remaining below epiglotti s but doesn't fully clear. Patient coughed 1x [place] thick by straw: penetration to vocal folids; material below epiglottis Mech soft: no penetration but significant residue at valleculae Thin liquid by spoon: aspirated 1x; not silent as patient coughed. IMPRESSION: 1. Please see above findings. 2. Please refer to swallowing therapist's recommendations for future feedings. RPTAT: [facility] .Leeroy Mo MD, Date Time Electronically viewed and signed by .Leeroy Mo MD, on 06/07/2017 15:56 .K/
--- NOTE | 2017-06-07 17:12 | PN ---
Date/Time of Note Date/Time of Note DATE: 06/07/17 TIME: 17:12 Assessment/Plan VTE Prophylaxis VTE Prophylaxis Intervention: SCD's Lines/Catheters IV Catheter Type (from Nrsg): Saline Lock Urinary Cath still in place: No Assessment/Plan Assessment/Plan 86 yo M with dementia, chronic respiratory insufficiency admitted for SOB 2/2 HCAP and likely acute on chronic heart failure (EF 30%) also found to have MAGDA on CKD and NSTEMI with incidental finding of acute CVA #CVA: neuro on cs, likely cardioembolic origin. tele only with SR PT/OT/ST ongoing MRA with significant R ICA stenosis-->CM cs for outpatient vascular eval cont DAPT, statin, BP control #HCAP: cont abx, anticipate 7 day course. pt back on home O2 (9.15-->) last day tomorrow #MAGDA on CKD: renal on consult, Cr stable #NSTEMI: likely from demand, cardiology following #HL, HTN, h/o CAD cont zetia, asa/plavix, home BP meds ARU cs placed previously CM cs for SNF Subjective 24 Hr Interval Summary Free Text/Dictation doing ok this AM Exam/Review of Systems Vital Signs Vitals Vital Signs Date Time Temp Pulse Resp B/P Pulse Ox O2 Delivery O2 Flow Rate FiO2 06/07/17 16:33 79 06/07/17 15:59 98.4 18 134/68 98 06/07/17 08:55 Nasal Cannula 3.0 Intake and Output 06/06/17 06/06/17 06/07/17 14:59 22:59 06:59 Intake Total 0 ml 530 ml Output Total 500 ml Balance -500 ml 530 ml Exam nad sleeping respirations nonlabored no mrg abd soft no rashes Results Result Diagram: 06/07/1715 06/07/1715 Results 24 hrs Laboratory Tests Test 06/07/17 09:15 White Blood Count 7.3 Red Blood Count 5.10 Hemoglobin 14.3 Hematocrit 44.4 Mean Corpuscular Volume 87.1 Mean Corpuscular Hemoglobin 28.0 L Mean Corpuscular Hemoglobin Concent 32.2 Red Cell Distribution Width 12.1 Platelet Count 222 # Mean Platelet Volume 11.4 H Neutrophils % 80.5 H Lymphocytes % 11.2 L Monocytes % 6.8 Eosinophils % 0.7 Basophils % 0.4 Nucleated Red Blood Cells % 0.0 Neutrophils # 5.8 Lymphocytes # 0.8 Monocytes # 0.5 Eosinophils # 0.1 Basophils # 0.0 Nucleated Red Blood Cells # 0.0 Sodium Level 145 H Potassium Level 4.1 Chloride Level 104 Carbon Dioxide Level 29 Anion Gap 16 Blood Urea Nitrogen 57 H Creatinine 2.38 H Glucose Level 100 Calcium Level 9.5 Medications Medications Current Medications Ondansetron HCl (Zofran Inj) 4 mg Q6H PRN IV NAUSEA AND/OR VOMITING; Start at 10:30 Acetaminophen (Tylenol Tab) 650 mg Q6H PRN PO PAIN LEVEL 1-3 OR FEVER Last administered on 06/02/17 08:59; Admin Dose 650 MG; Start 06/01/17 at 10:30 Acetaminophen/ Hydrocodone Bitart ([place] (5/325)) 1 tab Q6H PRN PO MODERATE PAIN LEVEL 4-6 Last administered on 06/01/17 11:44; Admin Dose 1 TAB; Start at 10:30 Morphine Sulfate (morphine) 2 mg Q4H PRN IV SEVERE PAIN LEVEL 7-10 Last administered on 06/02/17 23:34; Admin Dose 2 MG; Start 06/01/17 at 10:30 Docusate Sodium (Colace) 100 mg Q12H PRN PO CONSTIPATION; Start 06/01/17 at 10: 30 Magnesium Hydroxide (Milk Of Mag) 30 ml DAILY PRN PO CONSTIPATION; Start at 10:30 Sodium Biphosphate/ Sodium Phosphate (Fleet Enema) 133 ml DAILY PRN [place] CONSTIPATION; Start 06/01/17 at 10:30 Vancomycin HCl (Vanco Iv Per Pharmacy) VANCOMYCIN PER PHARMACY NOTE XX ; Start 06/01/17 at 10:30 Nitroglycerin (Nitroglycerin (Sl Tab) 0.4 Mg) 1 tab Q5M PRN SL ANGINA; Start at 10:30 Aspirin (Halfprin) 81 mg DAILY PO Last administered on 06/02/17 08:59; Admin Dose 81 MG; Start 06/02/17 at 09:00 Atorvastatin Calcium (Lipitor) 40 mg QHS PO Last administered on 06/03/17 21: 01; Admin Dose 40 MG; Start 06/01/17 at 21:00 Bisoprolol Fumarate (Zebeta) 10 mg DAILY PO Last administered on 06/02/17 09: 00; Admin Dose 10 MG; Start 06/02/17 at 09:00 Clopidogrel Bisulfate (plaVIX) 75 mg DAILY PO Last administered on 06/02/17 08 :59; Admin Dose 75 MG; Start 06/02/17 at 09:00 Dutasteride (Avodart) 0.5 mg DAILY PO Last administered on 06/02/17 08:58; Admin Dose 0.5 MG; Start 06/02/17 at 09:00 Pramipexole (Mirapex) 0.125 mg HS PO Last administered on 06/03/17 21:02; Admin Dose 0.125 MG; Start 06/01/17 at 21:00 Rivastigmine Tartrate (Exelon 4.6 Mg/ 24 Hr Patch) 1 patch DAILY TRANSDERM Last administered on 06/07/17 09:48; Admin Dose 1 PATCH; Start 06/02/17 at 09: 00 Silver Sulfadiazine (Thermazene 1% 25 Gm) 1 applic DAILY TOP ; Start 06/02/17 at 09:00 Tamsulosin HCl (Flomax) 0.4 mg HS PO Last administered on 06/03/17 21:01; Admin Dose 0.4 MG; Start 06/01/17 at 21:00 Pantoprazole 40 mg 40 mg DAILY@06 PO ; Start 06/02/17 at 06:00 Piperacillin Sod/ Tazobactam Sod (Zosyn 2.25gm/ 50ml (Pmx)) 50 ml @ 100 mls/hr Q6 IVPB Last administered on 06/07/17 17:09; Admin Dose 100 MLS/HR; Start at 18:00 Tramadol HCl (Ultram) 50 mg Q6H PRN PO PAIN Last administered on 06/02/17 20: 36; Admin Dose 50 MG; Start 06/01/17 at 22:00 Aspirin (Aspirin) 300 mg DAILY [place] Last administered on 06/07/17 09:48; Admin Dose 300 MG; Start 06/05/17 at 17:00 Nicotine 1 patch 1 patch DAILY TRANSDERM Last administered on 06/07/17 09:48; Admin Dose 1 PATCH; Start 06/05/17 at 18:30 Vancomycin HCl 750 mg/Sodium Chloride 150 ml @ 75 mls/hr Q36H IVPB Last administered on 06/06/17 22:11; Admin Dose 75 MLS/HR; Start 06/06/17 at 22:00 Sodium Chloride (NS) 1,000 ml @ 40 mls/hr Q24H IV Last administered on 20:23; Admin Dose 40 MLS/HR; Start 06/06/17 at 20:00 Miscellaneous Information (*Rx Drug Level Order Reminder*) 1 ONCE ONCE XX ; Start 06/08/17 at 09:00; Stop 06/08/17 at 09:01 CORINNA GONZALES MD Jun 07, 2017 17:12
--- NOTE | 2017-06-07 17:50 | CONS ---
Date/Time of Note Date/Time of Note DATE: 06/07/17 TIME: 17:48 Consult Date/Type/Reason Admit Date/Time Jun 01, 2017 at 09:07 Initial Consult Date 06/05/17 Type of Consultation: neurology Reason for Consultation CVA Ordering Provider: CORINNA GONZALES MD Subjective video swallow today MRA Neck shows 80% high grade Right ICA stenosis Objective Vital Signs Date Time Temp Pulse Resp B/P Pulse Ox O2 Delivery O2 Flow Rate FiO2 06/07/17 16:33 79 06/07/17 15:59 98.4 18 134/68 98 06/07/17 08:55 Nasal Cannula 3.0 Intake and Output 06/06/17 06/06/17 06/07/17 15:00 23:00 07:00 Intake Total 150 ml 380 ml Output Total 500 ml Balance -350 ml 380 ml Exam awake and alert non-verbal he tracks examiner shakes hands CN: appear grossly intact no obvious facial asymmetry gaze preference Motor: lifts all extremities anti-gravity atleast 3/5 no obvious drift noted Reflexes 2+ throughout Results/Medications Result Diagram: 06/07/1715 06/07/17 0915 Results 24 hrs Laboratory Tests Test 06/07/17 09:15 White Blood Count 7.3 Red Blood Count 5.10 Hemoglobin 14.3 Hematocrit 44.4 Mean Corpuscular Volume 87.1 Mean Corpuscular Hemoglobin 28.0 L Mean Corpuscular Hemoglobin Concent 32.2 Red Cell Distribution Width 12.1 Platelet Count 222 # Mean Platelet Volume 11.4 H Neutrophils % 80.5 H Lymphocytes % 11.2 L Monocytes % 6.8 Eosinophils % 0.7 Basophils % 0.4 Nucleated Red Blood Cells % 0.0 Neutrophils # 5.8 Lymphocytes # 0.8 Monocytes # 0.5 Eosinophils # 0.1 Basophils # 0.0 Nucleated Red Blood Cells # 0.0 Sodium Level 145 H Potassium Level 4.1 Chloride Level 104 Carbon Dioxide Level 29 Anion Gap 16 Blood Urea Nitrogen 57 H Creatinine 2.38 H Glucose Level 100 Calcium Level 9.5 Medications Current Medications Ondansetron HCl (Zofran Inj) 4 mg Q6H PRN IV NAUSEA AND/OR VOMITING; Start at 10:30 Acetaminophen (Tylenol Tab) 650 mg Q6H PRN PO PAIN LEVEL 1-3 OR FEVER Last administered on 06/02/17t 08:59; Admin Dose 650 MG; Start 06/01/17 at 10:30 Acetaminophen/ Hydrocodone Bitart ([place] (5/325)) 1 tab Q6H PRN PO MODERATE PAIN LEVEL 4-6 Last administered on 06/01/17 11:44; Admin Dose 1 TAB; Start at 10:30 Docusate Sodium (Colace) 100 mg Q12H PRN PO CONSTIPATION; Start 06/01/17 at 10: 30 Magnesium Hydroxide (Milk Of Mag) 30 ml DAILY PRN PO CONSTIPATION; Start at 10:30 Sodium Biphosphate/ Sodium Phosphate (Fleet Enema) 133 ml DAILY PRN [place] CONSTIPATION; Start 06/01/17 at 10:30 Vancomycin HCl (Vanco Iv Per Pharmacy) VANCOMYCIN PER PHARMACY NOTE XX ; Start 06/01/17 at 10:30 Nitroglycerin (Nitroglycerin (Sl Tab) 0.4 Mg) 1 tab Q5M PRN [place] ANGINA; Start at 10:30 Aspirin (Halfprin) 81 mg DAILY PO Last administered on 06/02/17 08:59; Admin Dose 81 MG; Start 06/02/17 at 09:00 Atorvastatin Calcium (Lipitor) 40 mg QHS PO Last administered on 06/03/17 21: 01; Admin Dose 40 MG; Start 06/01/17 at 21:00 Bisoprolol Fumarate (Zebeta) 10 mg DAILY PO Last administered on 06/02/17 09: 00; Admin Dose 10 MG; Start 06/02/17 at 09:00 Clopidogrel Bisulfate (plaVIX) 75 mg DAILY PO Last administered on 06/02/17 08 :59; Admin Dose 75 MG; Start 06/02/17 at 09:00 Dutasteride (Avodart) 0.5 mg DAILY PO Last administered on 06/02/17 08:58; Admin Dose 0.5 MG; Start 06/02/17 at 09:00 Pramipexole (Mirapex) 0.125 mg HS PO Last administered on 06/03/17 21:02; Admin Dose 0.125 MG; Start 06/01/17 at 21:00 Rivastigmine Tartrate (Exelon 4.6 Mg/ 24 Hr Patch) 1 patch DAILY TRANSDERM Last administered on 06/07/17 09:48; Admin Dose 1 PATCH; Start 06/02/17 at 09: 00 Silver Sulfadiazine (Thermazene 1% 25 Gm) 1 applic DAILY TOP ; Start 06/02/17 at 09:00 Tamsulosin HCl (Flomax) 0.4 mg HS PO Last administered on 06/03/17 21:01; Admin Dose 0.4 MG; Start 06/01/17 at 21:00 Pantoprazole 40 mg 40 mg DAILY@06 PO ; Start 06/02/17 at 06:00 Piperacillin Sod/ Tazobactam Sod (Zosyn 2.25gm/ 50ml (Pmx)) 50 ml @ 100 mls/hr Q6 IVPB Last administered on 06/07/17 17:09; Admin Dose 100 MLS/HR; Start at 18:00 Tramadol HCl (Ultram) 50 mg Q6H PRN PO PAIN Last administered on 06/02/17 20: 36; Admin Dose 50 MG; Start 06/01/17 at 22:00 Aspirin (Aspirin) 300 mg DAILY [place] Last administered on 06/07/17 09:48; Admin Dose 300 MG; Start 06/05/17 at 17:00 Nicotine 1 patch 1 patch DAILY TRANSDERM Last administered on 06/07/17 09:48; Admin Dose 1 PATCH; Start 06/05/17 at 18:30 Vancomycin HCl/ Sodium Chloride (Vancocin/NS) 150 ml @ 75 mls/hr Q36H IVPB Last administered on 06/06/17 22:11; Admin Dose 75 MLS/HR; Start 06/06/17 at 22 :00 Miscellaneous Information (*Rx Drug Level Order Reminder*) 1 ONCE ONCE XX ; Start 06/08/17 at 09:00; Stop 06/08/17 at 09:01 Tiotropium [place] (Spiriva) 1 inh DAILY INH ; Start 06/08/17 at 09:00 Assessment/Plan Chief Complaint/Hosp Course 86 yo male admitted with pneumonia, encephalopathy, acute on chronic heart failure with tiny embolic appearing infarcts right parietal, right temporal region on MRI. ECHO EF: 30% with akinetic segments on dual antiplatelet therapy. 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
[2017-06-07] MEDS: TAMSULOSIN (SR) 0.4 MG CAP PO SCH (20:57)
[2017-06-07] MEDS: PRAMIPEXOLE 0.125 MG TAB PO SCH (20:57)
[2017-06-07] MEDS: ATORVASTATIN 40 MG TAB PO SCH (20:57)
[2017-06-08] VITALS (15 sets, daily range): BP systolic 104–167; BP diastolic 52–74; PULSE 59–144; RESP 16–19
[2017-06-08] MEDS: PIPER-TAZO 2.25 GM (PMX) 50 ML IVPB SCH ×2 (00:22→06:10)
[2017-06-08] MEDS: GUAIFENESIN/DM 5ML CUP PO PRN ×2 (05:02→21:11)
[2017-06-08] MEDS ORDERED: BENZONATATE 100 MG CAP PO ONE (05:30)
[2017-06-08] MEDS: PANTOPRAZOLE (EC) 40 MG TAB PO SCH (06:10)
[2017-06-08] MEDS: FUROSEMIDE 40 MG INJ IV SCH (06:11)
[2017-06-08] MEDS: TIOTROPIUM 18 MCG CAPSULE INHA DEV INH SCH (08:59)
[2017-06-08] MEDS: CLOPIDOGREL 75 MG TAB PO SCH (09:00)
[2017-06-08] MEDS: ASPIRIN (EC) 81 MG TAB PO SCH (09:00)
[2017-06-08] MEDS: ASPIRIN 300 MG SUPP PR SCH (09:00)
[2017-06-08] MEDS: SILVER SULFADIAZINE 1% 25 GM CR TOP SCH (09:00)
[2017-06-08] MEDS: DUTASTERIDE 0.5 MG CAP PO SCH (09:00)
[2017-06-08] MEDS: BISOPROLOL 5 MG TAB PO SCH (09:01)
[2017-06-08] MEDS: NICOTINE (21 MG/24 HR) PATCH TRANSDERM SCH (09:07)
[2017-06-08] MEDS: RIVASTIGMINE 4.6MG/24H PATCH TRANSDERM SCH (09:07)
[2017-06-08] MEDS: BENZONATATE 100 MG CAP PO SCH ×3 (09:07→21:10)
[2017-06-08 09:45] LABS: BASOPHILS % 0.5 % (0.0-2.0); EOSINOPHILS # 0.1 10^3/ul (0.0-0.5); EOSINOPHILS % 1.5 % (0.0-7.0); HEMATOCRIT 45.2 % (42.0-52.0); HEMOGLOBIN 14.8 g/dl (14.0-18.0); LYMPHOCYTES % 11.6 % (15.0-51.0); MEAN CORPUSCULAR HEMOGLOBIN 28.9 pg (29.0-33.0); MEAN CORPUSCULAR HGB CONC 32.7 g/dl (32.0-37.0); MEAN CORPUSCULAR VOLUME 88.3 fl (82.0-101.0); MEAN PLATELET VOLUME 11.7 fl (7.4-10.4); MONOCYTE # 0.7 10^3/ul (0.3-0.9); MONOCYTES % 7.7 % (0.0-11.0); NEUTROPHIL # 6.6 10^3/ul (1.6-7.5); NEUTROPHILS % 78.3 % (39.0-77.0); PLATELET COUNT 252 10^3/UL (140-415); RED BLOOD COUNT 5.12 10^6/ul (4.70-6.10); WHITE BLOOD COUNT 8.4 10^3/ul (4.8-10.8)
[2017-06-08 10:09] LABS: ALBUMIN 3.8 g/dl (3.3-4.9); ALBUMIN/GLOBULIN RATIO 0.97; BILIRUBIN,INDIRECT 0.5 mg/dl (0-1.1); BILIRUBIN,TOTAL 0.5 mg/dl (0.2-1.3); CALCIUM 9.9 mg/dl (8.4-10.2); CREATININE 2.77 mg/dl (0.61-1.24); MAGNESIUM 2.2 mg/dl (1.7-2.5); POTASSIUM 3.7 mmol/L (3.5-5.1); TOTAL PROTEIN 7.7 g/dl (6.1-8.1)
[2017-06-08] MEDS: VANCOMYCIN 750 MG in SOD CHLORIDE 0.9% 150 ML IVPB SCH (10:56)
[2017-06-08] MEDS ORDERED: PIPER-TAZO 2.25 GM (PMX) 50 ML IVPB SCH (14:00)
--- NOTE | 2017-06-08 15:46 | PN ---
Date/Time of Note Date/Time of Note DATE: 06/08/17 TIME: 15:45 Assessment/Plan VTE Prophylaxis VTE Prophylaxis Intervention: SCD's Lines/Catheters IV Catheter Type (from Nrs): Saline Lock Urinary Cath still in place: No Assessment/Plan Assessment/Plan 86 yo M with dementia, chronic respiratory insufficiency admitted for SOB 2/2 HCAP and likely acute on chronic heart failure (EF 30%) also found to have MAGDA on CKD and NSTEMI with incidental finding of acute CVA #CVA: neuro on cs, likely cardioembolic origin. tele only with SR PT/OT/ST ongoing MRA with significant R ICA stenosis-->CM cs for outpatient vascular eval cont DAPT, statin, BP control #HCAP: sp 7 days of abx. pt back on home O2 #MAGDA on CKD: renal on consult, Cr stable #NSTEMI: likely from demand, cardiology following #HL, HTN, h/o CAD cont zetia, asa/plavix, home BP meds,lasix converted to PO ARU cs placed previously CM cs for SNF Pt medically stable for tranfer to SNF now that he's able to take PO Subjective 24 Hr Interval Summary Free Text/Dictation sleeping Exam/Review of Systems Vital Signs Vitals Vital Signs Date Time Temp Pulse Resp B/P Pulse Ox O2 Delivery O2 Flow Rate FiO2 06/08/17 12:14 98.1 63 19 142/57 97 06/08/17 07:40 Nasal Cannula 3.0 Intake and Output 06/07/17 06/07/17 06/08/17 15:00 23:00 07:00 Intake Total 200 ml 250 ml Balance 200 ml 250 ml Exam nad no mrg lungs clear abd soft no rashes Results Result Diagram: 06/08/17 0852 06/08/17 0852 Results 24 hrs Laboratory Tests Test 06/08/17 08:52 White Blood Count 8.4 Red Blood Count 5.12 Hemoglobin 14.8 Hematocrit 45.2 Mean Corpuscular Volume 88.3 Mean Corpuscular Hemoglobin 28.9 L Mean Corpuscular Hemoglobin Concent 32.7 Red Cell Distribution Width 12.0 Platelet Count 252 Mean Platelet Volume 11.7 H Neutrophils % 78.3 H Lymphocytes % 11.6 L Monocytes % 7.7 Eosinophils % 1.5 Basophils % 0.5 Nucleated Red Blood Cells % 0.0 Neutrophils # 6.6 Lymphocytes # 1.0 Monocytes # 0.7 Eosinophils # 0.1 Basophils # 0.0 Nucleated Red Blood Cells # 0.0 Sodium Level 148 H Potassium Level 3.7 Chloride Level 102 Carbon Dioxide Level 36 H Anion Gap 14 Blood Urea Nitrogen 59 H Creatinine 2.77 H Glucose Level 119 Calcium Level 9.9 Magnesium Level 2.2 Total Bilirubin 0.5 Direct Bilirubin 0.00 Indirect Bilirubin 0.5 Aspartate Amino Transf (AST/SGOT) 29 Alanine Aminotransferase (ALT/SGPT) 36 Alkaline Phosphatase 54 Total Protein 7.7 Albumin 3.8 Globulin 3.90 H Albumin/Globulin Ratio 0.97 Vancomycin Level Trough 12.5 Medications Medications Current Medications Ondansetron HCl (Zofran Inj) 4 mg Q6H PRN IV NAUSEA AND/OR VOMITING; Start at 10:30 Acetaminophen (Tylenol Tab) 650 mg Q6H PRN PO PAIN LEVEL 1-3 OR FEVER Last administered on 06/02/17 08:59; Admin Dose 650 MG; Start 06/01/17 at 10:30 Acetaminophen/ Hydrocodone Bitart ([place] (5/325)) 1 tab Q6H PRN PO MODERATE PAIN LEVEL 4-6 Last administered on 06/01/17 11:44; Admin Dose 1 TAB; Start at 10:30 Docusate Sodium (Colace) 100 mg Q12H PRN PO CONSTIPATION; Start 06/01/17 at 10: 30 Magnesium Hydroxide (Milk Of Mag) 30 ml DAILY PRN PO CONSTIPATION; Start at 10:30 Sodium Biphosphate/ Sodium Phosphate (Fleet Enema) 133 ml DAILY PRN [place] CONSTIPATION; Start 06/01/17 at 10:30 Nitroglycerin (Nitroglycerin (Sl Tab) 0.4 Mg) 1 tab Q5M PRN SL ANGINA; Start at 10:30 Aspirin (Halfprin) 81 mg DAILY PO Last administered on 06/08/17 09:00; Admin Dose 81 MG; Start 06/02/17 at 09:00 Atorvastatin Calcium (Lipitor) 40 mg QHS PO Last administered on 06/07/17 20: 57; Admin Dose 40 MG; Start 06/01/17 at 21:00 Bisoprolol Fumarate (Zebeta) 10 mg DAILY PO Last administered on 06/08/17 09: 01; Admin Dose 10 MG; Start 06/02/17 at 09:00 Clopidogrel Bisulfate (plaVIX) 75 mg DAILY PO Last administered on 06/08/17 09 :00; Admin Dose 75 MG; Start 06/02/17 at 09:00 Dutasteride (Avodart) 0.5 mg DAILY PO Last administered on 06/08/17 09:00; Admin Dose 0.5 MG; Start 06/02/17 at 09:00 Pramipexole (Mirapex) 0.125 mg HS PO Last administered on 06/07/17 20:57; Admin Dose 0.125 MG; Start 06/01/17 at 21:00 Rivastigmine Tartrate (Exelon 4.6 Mg/ 24 Hr Patch) 1 patch DAILY TRANSDERM Last administered on 06/08/17 09:07; Admin Dose 1 PATCH; Start 06/02/17 at 09: 00 Silver Sulfadiazine (Thermazene 1% 25 Gm) 1 applic DAILY TOP ; Start 06/02/17 at 09:00 Tamsulosin HCl (Flomax) 0.4 mg HS PO Last administered on 06/07/17 20:57; Admin Dose 0.4 MG; Start 06/01/17 at 21:00 Pantoprazole (Protonix Tab) 40 mg DAILY@06 PO Last administered on 06/08/17 06 :10; Admin Dose 40 MG; Start 06/02/17 at 06:00 Tramadol HCl (Ultram) 50 mg Q6H PRN PO PAIN Last administered on 06/02/17 20: 36; Admin Dose 50 MG; Start 06/01/17 at 22:00 Aspirin (Aspirin) 300 mg DAILY [place] Last administered on 06/07/17 09:48; Admin Dose 300 MG; Start 06/05/17 at 17:00 Nicotine (Nicoderm 21 Mg/ 24hr) 1 patch DAILY TRANSDERM Last administered on 09:07; Admin Dose 1 PATCH; Start 06/05/17 at 18:30 Tiotropium [place] (Spiriva) 1 inh DAILY INH Last administered on 06/08/17 08: 59; Admin Dose 1 INH; Start 06/08/17 at 09:00 Benzonatate (Tessalon) 200 mg TID PO Last administered on 9/22/17at 13:15; Admin Dose 200 MG; Start 06/08/17 at 09:00 Guaifenesin/ Dextromethorphan (Robitussin Dm Liquid Cup) 10 ml Q4H PRN PO COUGH Last administered on 06/08/17t 05:02; Admin Dose 10 ML; Start 06/08/17 at 05:00 CORINNA GONZALES MD Jun 08, 2017 15:46
--- NOTE | 2017-06-08 17:02 | CONS ---
Date/Time of Note Date/Time of Note DATE: 06/08/17 TIME: 16:59 Consult Date/Type/Reason Admit Date/Time Jun 01, 2017 at 09:07 Initial Consult Date 06/05/17 Type of Consultation: Pulm Ordering Provider: CORINNA GONZALES MD Subjective Still mostly bedbound. Objective Vital Signs Date Time Temp Pulse Resp B/P Pulse Ox O2 Delivery O2 Flow Rate FiO2 06/08/17 15:45 98.1 61 19 167/74 93 06/08/17 07:40 Nasal Cannula 3.0 Intake and Output 06/07/17 06/07/17 06/08/17 15:00 23:00 07:00 Intake Total 200 ml 250 ml Balance 200 ml 250 ml Exam GENERAL: Elderly Nepali gentleman appears comfortable at rest VITAL SIGNS: per chart NECK: Supple. No JVD or lymphadenopathy. CARDIAC EXAM: S1, S2. No added sounds or murmurs. CHEST: clear bilaterally, No added sounds, rales or wheezes ABDOMEN: Soft, nontender. No guarding or rebound. EXTREMITIES: No cyanosis, clubbing or edema. NEUROLOGIC: Generalized weakness. No focal deficits. Results/Medications Result Diagram: 06/08/17 0852 06/08/17 0852 Results 24 hrs Laboratory Tests Test 06/08/17 08:52 White Blood Count 8.4 Red Blood Count 5.12 Hemoglobin 14.8 Hematocrit 45.2 Mean Corpuscular Volume 88.3 Mean Corpuscular Hemoglobin 28.9 L Mean Corpuscular Hemoglobin Concent 32.7 Red Cell Distribution Width 12.0 Platelet Count 252 Mean Platelet Volume 11.7 H Neutrophils % 78.3 H Lymphocytes % 11.6 L Monocytes % 7.7 Eosinophils % 1.5 Basophils % 0.5 Nucleated Red Blood Cells % 0.0 Neutrophils # 6.6 Lymphocytes # 1.0 Monocytes # 0.7 Eosinophils # 0.1 Basophils # 0.0 Nucleated Red Blood Cells # 0.0 Sodium Level 148 H Potassium Level 3.7 Chloride Level 102 Carbon Dioxide Level 36 H Anion Gap 14 Blood Urea Nitrogen 59 H Creatinine 2.77 H Glucose Level 119 Calcium Level 9.9 Magnesium Level 2.2 Total Bilirubin 0.5 Direct Bilirubin 0.00 Indirect Bilirubin 0.5 Aspartate Amino Transf (AST/SGOT) 29 Alanine Aminotransferase (ALT/SGPT) 36 Alkaline Phosphatase 54 Total Protein 7.7 Albumin 3.8 Globulin 3.90 H Albumin/Globulin Ratio 0.97 Vancomycin Level Trough 12.5 Medications Current Medications Ondansetron HCl (Zofran Inj) 4 mg Q6H PRN IV NAUSEA AND/OR VOMITING; Start at 10:30 Acetaminophen (Tylenol Tab) 650 mg Q6H PRN PO PAIN LEVEL 1-3 OR FEVER Last administered on 06/02/17 08:59; Admin Dose 650 MG; Start 06/01/17 at 10:30 Acetaminophen/ Hydrocodone Bitart ([place] (5/325)) 1 tab Q6H PRN PO MODERATE PAIN LEVEL 4-6 Last administered on 06/01/17 11:44; Admin Dose 1 TAB; Start at 10:30 Docusate Sodium (Colace) 100 mg Q12H PRN PO CONSTIPATION; Start 06/01/17 at 10: 30 Magnesium Hydroxide (Milk Of Mag) 30 ml DAILY PRN PO CONSTIPATION; Start at 10:30 Sodium Biphosphate/ Sodium Phosphate (Fleet Enema) 133 ml DAILY PRN [place] CONSTIPATION; Start 06/01/17 at 10:30 Nitroglycerin (Nitroglycerin (Sl Tab) 0.4 Mg) 1 tab Q5M PRN SL ANGINA; Start at 10:30 Aspirin (Halfprin) 81 mg DAILY PO Last administered on 06/08/17 09:00; Admin Dose 81 MG; Start 06/02/17 at 09:00 Atorvastatin Calcium (Lipitor) 40 mg QHS PO Last administered on 06/07/17 20: 57; Admin Dose 40 MG; Start 06/01/17 at 21:00 Bisoprolol Fumarate (Zebeta) 10 mg DAILY PO Last administered on 06/08/17 09: 01; Admin Dose 10 MG; Start 06/02/17 at 09:00 Clopidogrel Bisulfate (plaVIX) 75 mg DAILY PO Last administered on 06/08/17 09 :00; Admin Dose 75 MG; Start 06/02/17 at 09:00 Dutasteride (Avodart) 0.5 mg DAILY PO Last administered on 06/08/17 09:00; Admin Dose 0.5 MG; Start 06/02/17 at 09:00 Pramipexole (Mirapex) 0.125 mg HS PO Last administered on 06/07/17 20:57; Admin Dose 0.125 MG; Start 06/01/17 at 21:00 Rivastigmine Tartrate (Exelon 4.6 Mg/ 24 Hr Patch) 1 patch DAILY TRANSDERM Last administered on 06/08/17 09:07; Admin Dose 1 PATCH; Start 06/02/17 at 09: 00 Silver Sulfadiazine (Thermazene 1% 25 Gm) 1 applic DAILY TOP ; Start 06/02/17 at 09:00 Tamsulosin HCl (Flomax) 0.4 mg HS PO Last administered on 06/07/17 20:57; Admin Dose 0.4 MG; Start 06/01/17 at 21:00 Pantoprazole (Protonix Tab) 40 mg DAILY@06 PO Last administered on 06/08/17 06 :10; Admin Dose 40 MG; Start 06/02/17 at 06:00 Tramadol HCl (Ultram) 50 mg Q6H PRN PO PAIN Last administered on 06/02/17 20: 36; Admin Dose 50 MG; Start 06/01/17 at 22:00 Aspirin (Aspirin) 300 mg DAILY MA Last administered on 06/07/17 09:48; Admin Dose 300 MG; Start 06/05/17 at 17:00 Nicotine (Nicoderm 21 Mg/ 24hr) 1 patch DAILY TRANSDERM Last administered on 09:07; Admin Dose 1 PATCH; Start 06/05/17 at 18:30 Tiotropium [place] (Spiriva) 1 inh DAILY INH Last administered on 06/08/17 08: 59; Admin Dose 1 INH; Start 06/08/17 at 09:00 Benzonatate (Tessalon) 200 mg TID PO Last administered on 06/08/17 13:15; Admin Dose 200 MG; Start 06/08/17 at 09:00 Guaifenesin/ Dextromethorphan (Robitussin Dm Liquid Cup) 10 ml Q4H PRN PO COUGH Last administered on 06/08/17 05:02; Admin Dose 10 ML; Start 06/08/17 at 05:00 Assessment/Plan Chief Complaint/Hosp Course Assessment 1. Probable healthcare associated pneumonia, chronic hypoxemia. 2. Acute on chronic systolic dysfunction 3. Carotid stenosis on recent MRA, cva noted. 4. Dementia 5. Renal insufficiency Plan 1. Continue aspiration precautions 2. Monitor chest x-ray anticipate radiographic improvement over the next few weeks 3. Monitor renal function Agree with snf. Problems: MARQUES SINGLETON MD, [facility] Jun 08, 2017 17:02
--- NOTE | 2017-06-08 17:21 | CONS ---
Date/Time of Note Date/Time of Note DATE: 06/08/17 TIME: 17:20 Assessment/Plan Assessment/Plan Additional Assessment/Plan 86 yo male admitted with pneumonia, encephalopathy, acute on chronic heart failure with tiny embolic appearing infarcts right parietal, right temporal region on MRI. ECHO EF: 30% with akinetic segments on dual antiplatelet therapy. 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, possible embolic event from large vessel (right carotid stenosis) continue antiplatelet, continue tele monitoring for afib, NPO can give ASA 300 mg UT for now, dual antiplatelet recommended once tolerating PO reliably would also recommend vascular surgery consultation for evaluation for Right carotid stenosis LDL and Hemoglobin A1C are at goal continue current medications maintain normotensive and afebrile, avoid hypotension avoid overly sedating medications DVT ppx PT/OT/Speech evaluation Consultation Date/Type/Reason Admit Date/Time Jun 01, 2017 at 09:07 Initial Consult Date 06/05/17 Type of Consultation: Pulm Referring Provider: CORINNA GONAZLES MD 24 HR Interval Summary Free Text/Dictation Patient's daughter he has been doing well, walking with mild help. Exam/Review of Systems Vital Signs Vitals Vital Signs Date Time Temp Pulse Resp B/P Pulse Ox O2 Delivery O2 Flow Rate FiO2 06/08/17 15:45 98.1 61 19 167/74 93 06/08/17 07:40 Nasal Cannula 3.0 Intake and Output 06/07/17 06/07/17 06/08/17 15:00 23:00 07:00 Intake Total 200 ml 250 ml Balance 200 ml 250 ml Exam Constitutional: alert, well developed Psych: nl mood/affect, no complaints Head: atraumatic, normocephalic Eyes: nl conjunctiva, nl lids, nl sclera ENMT: mucosa pink and moist, nl external ears & nose, nl lips & teeth, nl nasal mucosa & septum Neck: non-tender, supple Respiratory: clear to auscultation, normal air movement Cardiovascular: nl pulses, regular rate and rhythm Gastrointestinal: nl liver, spleen, non-tender, soft Musculoskeletal: nl extremities to inspection Neurological: [employer] II-XII intact, nl speech, other (Mild diffuse weakness which could be patient's subjective) Results Result Diagram: 06/08/1752 06/08/1752 Results 24 hrs Laboratory Tests Test 06/08/17 08:52 White Blood Count 8.4 Red Blood Count 5.12 Hemoglobin 14.8 Hematocrit 45.2 Mean Corpuscular Volume 88.3 Mean Corpuscular Hemoglobin 28.9 L Mean Corpuscular Hemoglobin Concent 32.7 Red Cell Distribution Width 12.0 Platelet Count 252 Mean Platelet Volume 11.7 H Neutrophils % 78.3 H Lymphocytes % 11.6 L Monocytes % 7.7 Eosinophils % 1.5 Basophils % 0.5 Nucleated Red Blood Cells % 0.0 Neutrophils # 6.6 Lymphocytes # 1.0 Monocytes # 0.7 Eosinophils # 0.1 Basophils # 0.0 Nucleated Red Blood Cells # 0.0 Sodium Level 148 H Potassium Level 3.7 Chloride Level 102 Carbon Dioxide Level 36 H Anion Gap 14 Blood Urea Nitrogen 59 H Creatinine 2.77 H Glucose Level 119 Calcium Level 9.9 Magnesium Level 2.2 Total Bilirubin 0.5 Direct Bilirubin 0.00 Indirect Bilirubin 0.5 Aspartate Amino Transf (AST/SGOT) 29 Alanine Aminotransferase (ALT/SGPT) 36 Alkaline Phosphatase 54 Total Protein 7.7 Albumin 3.8 Globulin 3.90 H Albumin/Globulin Ratio 0.97 Vancomycin Level Trough 12.5 Medications Medications Current Medications Ondansetron HCl (Zofran Inj) 4 mg Q6H PRN IV NAUSEA AND/OR VOMITING; Start at 10:30 Acetaminophen (Tylenol Tab) 650 mg Q6H PRN PO PAIN LEVEL 1-3 OR FEVER Last administered on 06/02/17 08:59; Admin Dose 650 MG; Start 06/01/17 at 10:30 Acetaminophen/ Hydrocodone Bitart ([place] (5/325)) 1 tab Q6H PRN PO MODERATE PAIN LEVEL 4-6 Last administered on 06/01/17 11:44; Admin Dose 1 TAB; Start at 10:30 Docusate Sodium (Colace) 100 mg Q12H PRN PO CONSTIPATION; Start 06/01/17 at 10: 30 Magnesium Hydroxide (Milk Of Mag) 30 ml DAILY PRN PO CONSTIPATION; Start at 10:30 Sodium Biphosphate/ Sodium Phosphate (Fleet Enema) 133 ml DAILY PRN [place] CONSTIPATION; Start 06/01/17 at 10:30 Nitroglycerin (Nitroglycerin (Sl Tab) 0.4 Mg) 1 tab Q5M PRN SL ANGINA; Start at 10:30 Aspirin (Halfprin) 81 mg DAILY PO Last administered on 06/08/17 09:00; Admin Dose 81 MG; Start 06/02/17 at 09:00 Atorvastatin Calcium (Lipitor) 40 mg QHS PO Last administered on 06/07/17 20: 57; Admin Dose 40 MG; Start 06/01/17 at 21:00 Bisoprolol Fumarate (Zebeta) 10 mg DAILY PO Last administered on 06/08/17 09: 01; Admin Dose 10 MG; Start 06/02/17 at 09:00 Clopidogrel Bisulfate (plaVIX) 75 mg DAILY PO Last administered on 06/08/17 09 :00; Admin Dose 75 MG; Start 06/02/17 at 09:00 Dutasteride (Avodart) 0.5 mg DAILY PO Last administered on 06/08/17 09:00; Admin Dose 0.5 MG; Start 06/02/17 at 09:00 Pramipexole (Mirapex) 0.125 mg HS PO Last administered on 06/07/17 20:57; Admin Dose 0.125 MG; Start 06/01/17 at 21:00 Rivastigmine Tartrate (Exelon 4.6 Mg/ 24 Hr Patch) 1 patch DAILY TRANSDERM Last administered on 06/08/17 09:07; Admin Dose 1 PATCH; Start 06/02/17 at 09: 00 Silver Sulfadiazine (Thermazene 1% 25 Gm) 1 applic DAILY TOP ; Start 06/02/17 at 09:00 Tamsulosin HCl (Flomax) 0.4 mg HS PO Last administered on 06/07/17 20:57; Admin Dose 0.4 MG; Start 06/01/17 at 21:00 Pantoprazole (Protonix Tab) 40 mg DAILY@06 PO Last administered on 06/08/17 06 :10; Admin Dose 40 MG; Start 06/02/17 at 06:00 Tramadol HCl (Ultram) 50 mg Q6H PRN PO PAIN Last administered on 06/02/17 20: 36; Admin Dose 50 MG; Start 06/01/17 at 22:00 Aspirin (Aspirin) 300 mg DAILY [place] Last administered on 06/07/17 09:48; Admin Dose 300 MG; Start 06/05/17 at 17:00 Nicotine (Nicoderm 21 Mg/ 24hr) 1 patch DAILY TRANSDERM Last administered on 09:07; Admin Dose 1 PATCH; Start 06/05/17 at 18:30 Tiotropium [place] (Spiriva) 1 inh DAILY INH Last administered on 06/08/17 08: 59; Admin Dose 1 INH; Start 06/08/17 at 09:00 Benzonatate (Tessalon) 200 mg TID PO Last administered on 06/08/17 13:15; Admin Dose 200 MG; Start 06/08/17 at 09:00 Guaifenesin/ Dextromethorphan (Robitussin Dm Liquid Cup) 10 ml Q4H PRN PO COUGH Last administered on 06/08/17 05:02; Admin Dose 10 ML; Start 06/08/17 at 05:00 ANNALISA CASPER MD Jun 08, 2017 17:21
--- NOTE | 2017-06-08 17:43 | CONS ---
Date/Time of Note Date/Time of Note DATE: 06/08/17 TIME: 17:35 Consult Date/Type/Reason Admit Date/Time Jun 01, 2017 at 09:07 Initial Consult Date 06/01/17 Type of Consultation: cardiology Ordering Provider: CORINNA GONZALES MD Subjective cardiology follow up D/W staff and rhythm was reviewed. pt remains in NSR . NO AFIB pt is more alert d/w daughter. he denies any cp or palpitations to me OBJECTIVE: General: thin man in no resp distress HEENT: NC/AT. pupils are equal. round. NECK: NO JVD. no stridor. CV: RRR. systolic murmur grade III./; no gallop or rubs. PULM: +rhonchi right side mostly GI: SOFT, NT, ND, no rebound or guarding Extremity: no significant LE edema. no clubbing. neuro: awake and OX 2 per daughter report. . Psych: calm. rectal: deferred : normal male ECG reviewed personally NSR inf infarct. ant infarct age undetermined. CXR reviewed. focal infiltrate ECHO reviewed: 1. Normal left ventricular cavity size. Moderate concentric left ventricular hypertrophy. Severe left ventricular systolic dysfunction. Ejection fraction is visually estimated at 30 %. Abnormal Diastolic Function. These segments of the LV are hypokinetic basal anterior segment, mid anterior segment, apical anterior segment. , anterolateral mid segment. , apical lateral segment. , inferior apex segment, inferior mid segment, inferoseptum mid segment. , anteroseptum mid segment, apex. and apical septum. 2. There is mild enlargement of left atrium. 3. Mitral valve is not well visualized. Mitral valve leaflets appear mildly thickened. Severe mitral annular calcification. Trace mitral regurgitation. 4. Aortic valve not well visualized. Aortic cusps appear mildly calcified. Trace to mild aortic valve regurgitation. 5. Normal appearance of the tricuspid valve. Estimated peak PA systolic pressure 40 mmHg. There is mild tricuspid regurgitation. 6. Normal size and normal respiratory collapse consistent with normal right atrial pressure. Objective Vital Signs Date Time Temp Pulse Resp B/P Pulse Ox O2 Delivery O2 Flow Rate FiO2 06/08/17 15:45 98.1 61 19 167/74 93 06/08/17 07:40 Nasal Cannula 3.0 Intake and Output 06/07/17 06/07/17 06/08/17 15:00 23:00 07:00 Intake Total 200 ml 250 ml Balance 200 ml 250 ml Results/Medications Result Diagram: 06/08/17 0852 06/08/17 0852 Results 24 hrs Laboratory Tests Test 06/08/17 08:52 White Blood Count 8.4 Red Blood Count 5.12 Hemoglobin 14.8 Hematocrit 45.2 Mean Corpuscular Volume 88.3 Mean Corpuscular Hemoglobin 28.9 L Mean Corpuscular Hemoglobin Concent 32.7 Red Cell Distribution Width 12.0 Platelet Count 252 Mean Platelet Volume 11.7 H Neutrophils % 78.3 H Lymphocytes % 11.6 L Monocytes % 7.7 Eosinophils % 1.5 Basophils % 0.5 Nucleated Red Blood Cells % 0.0 Neutrophils # 6.6 Lymphocytes # 1.0 Monocytes # 0.7 Eosinophils # 0.1 Basophils # 0.0 Nucleated Red Blood Cells # 0.0 Sodium Level 148 H Potassium Level 3.7 Chloride Level 102 Carbon Dioxide Level 36 H Anion Gap 14 Blood Urea Nitrogen 59 H Creatinine 2.77 H Glucose Level 119 Calcium Level 9.9 Magnesium Level 2.2 Total Bilirubin 0.5 Direct Bilirubin 0.00 Indirect Bilirubin 0.5 Aspartate Amino Transf (AST/SGOT) 29 Alanine Aminotransferase (ALT/SGPT) 36 Alkaline Phosphatase 54 Total Protein 7.7 Albumin 3.8 Globulin 3.90 H Albumin/Globulin Ratio 0.97 Vancomycin Level Trough 12.5 Medications Current Medications Ondansetron HCl (Zofran Inj) 4 mg Q6H PRN IV NAUSEA AND/OR VOMITING; Start at 10:30 Acetaminophen (Tylenol Tab) 650 mg Q6H PRN PO PAIN LEVEL 1-3 OR FEVER Last administered on 06/02/17 08:59; Admin Dose 650 MG; Start 06/01/17 at 10:30 Acetaminophen/ Hydrocodone Bitart ([place] (5/325)) 1 tab Q6H PRN PO MODERATE PAIN LEVEL 4-6 Last administered on 06/01/17 11:44; Admin Dose 1 TAB; Start at 10:30 Docusate Sodium (Colace) 100 mg Q12H PRN PO CONSTIPATION; Start 06/01/17 at 10: 30 Magnesium Hydroxide (Milk Of Mag) 30 ml DAILY PRN PO CONSTIPATION; Start at 10:30 Sodium Biphosphate/ Sodium Phosphate (Fleet Enema) 133 ml DAILY PRN [place] CONSTIPATION; Start 06/01/17 at 10:30 Nitroglycerin (Nitroglycerin (Sl Tab) 0.4 Mg) 1 tab Q5M PRN SL ANGINA; Start at 10:30 Aspirin (Halfprin) 81 mg DAILY PO Last administered on 06/08/17 09:00; Admin Dose 81 MG; Start 06/02/17 at 09:00 Atorvastatin Calcium (Lipitor) 40 mg QHS PO Last administered on 06/07/17 20: 57; Admin Dose 40 MG; Start 06/01/17 at 21:00 Bisoprolol Fumarate (Zebeta) 10 mg DAILY PO Last administered on 06/08/17 09: 01; Admin Dose 10 MG; Start 06/02/17 at 09:00 Clopidogrel Bisulfate (plaVIX) 75 mg DAILY PO Last administered on 06/08/17 09 :00; Admin Dose 75 MG; Start 06/02/17 at 09:00 Dutasteride (Avodart) 0.5 mg DAILY PO Last administered on 06/08/17 09:00; Admin Dose 0.5 MG; Start 06/02/17 at 09:00 Pramipexole (Mirapex) 0.125 mg HS PO Last administered on 06/07/17 20:57; Admin Dose 0.125 MG; Start 06/01/17 at 21:00 Rivastigmine Tartrate (Exelon 4.6 Mg/ 24 Hr Patch) 1 patch DAILY TRANSDERM Last administered on 06/08/17 09:07; Admin Dose 1 PATCH; Start 06/02/17 at 09: 00 Silver Sulfadiazine (Thermazene 1% 25 Gm) 1 applic DAILY TOP ; Start 06/02/17 at 09:00 Tamsulosin HCl (Flomax) 0.4 mg HS PO Last administered on 06/07/17 20:57; Admin Dose 0.4 MG; Start 06/01/17 at 21:00 Pantoprazole (Protonix Tab) 40 mg DAILY@06 PO Last administered on 06/08/17 06 :10; Admin Dose 40 MG; Start 06/02/17 at 06:00 Tramadol HCl (Ultram) 50 mg Q6H PRN PO PAIN Last administered on 06/02/17 20: 36; Admin Dose 50 MG; Start 06/01/17 at 22:00 Aspirin (Aspirin) 300 mg DAILY [place] Last administered on 06/07/17 09:48; Admin Dose 300 MG; Start 06/05/17 at 17:00 Nicotine (Nicoderm 21 Mg/ 24hr) 1 patch DAILY TRANSDERM Last administered on 09:07; Admin Dose 1 PATCH; Start 06/05/17 at 18:30 Tiotropium [place] (Spiriva) 1 inh DAILY INH Last administered on 06/08/17 08: 59; Admin Dose 1 INH; Start 06/08/17 at 09:00 Benzonatate (Tessalon) 200 mg TID PO Last administered on 06/08/17 13:15; Admin Dose 200 MG; Start 06/08/17 at 09:00 Guaifenesin/ Dextromethorphan (Robitussin Dm Liquid Cup) 10 ml Q4H PRN PO COUGH Last administered on 06/08/17 05:02; Admin Dose 10 ML; Start 06/08/17 at 05:00 Assessment/Plan Chief Complaint/Hosp Course Assessment: 1. abnormal ECG: but c/w old but not acute STEMI 2. pneumonia 3. most likely cardiomyopathy 4. HTN 5. hyper K: correctly now. 6. Renal failure; probably MAGDA 7. Dyslipidemia 8. hx CAD, [place] 9. encephalopathy 10. smoker 11. hx etoh use 12. NSVT: stable now 13. abnormal trop with markedly elevated CK but not much elevation of CK-MB: c/ w false + trop from muscle release and NOT [place]. 14. CVA 15. dysphagia: improved now Recommendations: cont ASA/ Plavix abx as per IM off off ARB/ YUMIKO now due to MAGDA and hyper K. f/u renal consultations rec as well WILL DEC lasix. Betablockers as tolerated Thank you for his referral. I will continue to follow along with you on as needed base. JUAN HOLMAN Problems: JUAN HOLMAN MD Jun 08, 2017 17:43
[2017-06-08] MEDS ORDERED: FUROSEMIDE 40 MG TAB PO SCH (18:00)
[2017-06-08] MEDS: ATORVASTATIN 40 MG TAB PO SCH (21:10)
[2017-06-08] MEDS: PRAMIPEXOLE 0.125 MG TAB PO SCH (21:10)
[2017-06-08] MEDS: TAMSULOSIN (SR) 0.4 MG CAP PO SCH (21:10)
[2017-06-09] VITALS (14 sets, daily range): BP systolic 105–140; BP diastolic 52–65; PULSE 59–150; RESP 16–19
[2017-06-09 02:54] LABS: CALCIUM 9.6 mg/dl (8.4-10.2); CREATININE 2.85 mg/dl (0.61-1.24); POTASSIUM 3.2 mmol/L (3.5-5.1)
[2017-06-09] MEDS ORDERED: POTASSIUM CHLORIDE (SR) 20 MEQ TAB PO ONE (03:12)
[2017-06-09] MEDS ORDERED: POTASSIUM CHLORIDE 250 ML IVPB ONE (03:30)
[2017-06-09] MEDS: PANTOPRAZOLE (EC) 40 MG TAB PO SCH (05:44)
[2017-06-09] MEDS: ASPIRIN 300 MG SUPP PR SCH (07:48)
[2017-06-09] MEDS ORDERED: FUROSEMIDE 40 MG TAB PO SCH (08:00)
[2017-06-09] MEDS: NICOTINE (21 MG/24 HR) PATCH TRANSDERM SCH (08:43)
[2017-06-09] MEDS: DUTASTERIDE 0.5 MG CAP PO SCH (08:51)
[2017-06-09] MEDS: PRAMIPEXOLE 0.125 MG TAB PO SCH (08:51)
[2017-06-09] MEDS: TIOTROPIUM 18 MCG CAPSULE INHA DEV INH SCH (08:52)
[2017-06-09] MEDS: CLOPIDOGREL 75 MG TAB PO SCH (08:52)
[2017-06-09] MEDS: ASPIRIN (EC) 81 MG TAB PO SCH (08:53)
[2017-06-09] MEDS: BENZONATATE 100 MG CAP PO SCH ×3 (08:53→20:54)
[2017-06-09] MEDS: BISOPROLOL 5 MG TAB PO SCH (08:53)
[2017-06-09 11:20] LABS: ALBUMIN 3.2 g/dl (3.3-4.9); ALBUMIN/GLOBULIN RATIO 0.94; BILIRUBIN,INDIRECT 0.3 mg/dl (0-1.1); BILIRUBIN,TOTAL 0.3 mg/dl (0.2-1.3); CALCIUM 9.7 mg/dl (8.4-10.2); CREATININE 3.09 mg/dl (0.61-1.24); POTASSIUM 4.1 mmol/L (3.5-5.1); TOTAL PROTEIN 6.6 g/dl (6.1-8.1)
[2017-06-09] MEDS: RIVASTIGMINE 4.6MG/24H PATCH TRANSDERM SCH (11:43)
--- NOTE | 2017-06-09 12:37 | CONS ---
Date/Time of Note Date/Time of Note DATE: 06/09/17 TIME: 12:35 Assessment/Plan Assessment/Plan Additional Assessment/Plan Assessment and recommendations; 1. Patient admitted with CHF exacerbation as well as right lower lobe pneumonia with marked clinical improvement. 2. End-stage renal disease, on hemodialysis. Continue current supportive care. Consultation Date/Type/Reason Admit Date/Time Jun 01, 2017 at 09:07 Initial Consult Date 06/01/17 Type of Consultation: cardiology Referring Provider: CORINNA GONZALES MD 24 HR Interval Summary Free Text/Dictation Patient's condition stable. Remains awake alert. Denies any shortness of breath. Getting dialysis at bedside. General exam: Elderly male, awake alert, currently in no distress. Exam/Review of Systems Vital Signs Vitals Vital Signs Date Time Temp Pulse Resp B/P Pulse Ox O2 Delivery O2 Flow Rate FiO2 06/09/17 12:00 98.0 93 19 110/52 93 06/09/17 08:00 Nasal Cannula 3.0 Intake and Output 06/08/17 06/08/17 06/09/17 15:00 23:00 07:00 Intake Total 650 ml 300 ml Balance 650 ml 300 ml Exam HEENT exam; supple neck, positive JVD. No lymphadenopathy. Midline trachea. No thyromegaly. Pharynx is clear. Vision is edentulous. Chest exam; diminished but clear breath sounds. S1-S2 audible, no murmurs. Regular rhythm. Abdomen exam; soft, no organomegaly. Nontender. Bowel sounds audible. Extremity exam; no peripheral edema. INSURANCE VERIFICATION SPECIALIST exam; no focal deficit. Results Result Diagram: 06/08/17 0852 06/09/17 1007 Results 24 hrs Laboratory Tests Test 06/09/17 02:19 06/09/17 10:07 Sodium Level 143 146 H Potassium Level 3.2 L 4.1 Chloride Level 104 105 Carbon Dioxide Level 32 H 34 H Anion Gap 10 11 Blood Urea Nitrogen 63 H 62 H Creatinine 2.85 H 3.09 H Glucose Level 124 155 Calcium Level 9.6 9.7 Magnesium Level 2.0 2.0 Total Bilirubin 0.3 Direct Bilirubin 0.00 Indirect Bilirubin 0.3 Aspartate Amino Transf (AST/SGOT) 26 Alanine Aminotransferase (ALT/SGPT) 36 Alkaline Phosphatase 46 Total Protein 6.6 # Albumin 3.2 L Globulin 3.40 H Albumin/Globulin Ratio 0.94 Medications Medications Current Medications Ondansetron HCl (Zofran Inj) 4 mg Q6H PRN IV NAUSEA AND/OR VOMITING; Start at 10:30 Acetaminophen (Tylenol Tab) 650 mg Q6H PRN PO PAIN LEVEL 1-3 OR FEVER Last administered on 06/02/17 08:59; Admin Dose 650 MG; Start 06/01/17 at 10:30 Acetaminophen/ Hydrocodone Bitart ([place] (5/325)) 1 tab Q6H PRN PO MODERATE PAIN LEVEL 4-6 Last administered on 06/01/17 11:44; Admin Dose 1 TAB; Start at 10:30 Docusate Sodium (Colace) 100 mg Q12H PRN PO CONSTIPATION; Start 06/01/17 at 10: 30 Magnesium Hydroxide (Milk Of Mag) 30 ml DAILY PRN PO CONSTIPATION; Start at 10:30 Sodium Biphosphate/ Sodium Phosphate (Fleet Enema) 133 ml DAILY PRN [place] CONSTIPATION; Start 06/01/17 at 10:30 Nitroglycerin (Nitroglycerin (Sl Tab) 0.4 Mg) 1 tab Q5M PRN SL ANGINA; Start at 10:30 Aspirin (Halfprin) 81 mg DAILY PO Last administered on 06/09/17 08:53; Admin Dose 81 MG; Start 06/02/17 at 09:00 Atorvastatin Calcium (Lipitor) 40 mg QHS PO Last administered on 06/08/17 21: 10; Admin Dose 40 MG; Start 06/01/17 at 21:00 Bisoprolol Fumarate (Zebeta) 10 mg DAILY PO Last administered on 06/09/17 08: 53; Admin Dose 10 MG; Start 06/02/17 at 09:00 Clopidogrel Bisulfate (plaVIX) 75 mg DAILY PO Last administered on 06/09/17 08 :52; Admin Dose 75 MG; Start 06/02/17 at 09:00 Dutasteride (Avodart) 0.5 mg DAILY PO Last administered on 06/09/17 08:51; Admin Dose 0.5 MG; Start 06/02/17 at 09:00 Pramipexole (Mirapex) 0.125 mg HS PO Last administered on 06/09/17 08:51; Admin Dose 0.125 MG; Start 06/01/17 at 21:00 Rivastigmine Tartrate (Exelon 4.6 Mg/ 24 Hr Patch) 1 patch DAILY TRANSDERM Last administered on 06/09/17 11:43; Admin Dose 1 PATCH; Start 06/02/17 at 09: 00 Silver Sulfadiazine (Thermazene 1% 25 Gm) 1 applic DAILY TOP ; Start 06/02/17 at 09:00 Tamsulosin HCl (Flomax) 0.4 mg HS PO Last administered on 06/08/17 21:10; Admin Dose 0.4 MG; Start 06/01/17 at 21:00 Pantoprazole (Protonix Tab) 40 mg DAILY@06 PO Last administered on 06/09/17 05 :44; Admin Dose 40 MG; Start 06/02/17 at 06:00 Tramadol HCl (Ultram) 50 mg Q6H PRN PO PAIN Last administered on 06/02/17 20: 36; Admin Dose 50 MG; Start 06/01/17 at 22:00 Aspirin (Aspirin) 300 mg DAILY [place] Last administered on 06/07/17 09:48; Admin Dose 300 MG; Start 06/05/17 at 17:00 Nicotine (Nicoderm 21 Mg/ 24hr) 1 patch DAILY TRANSDERM Last administered on 08:43; Admin Dose 1 PATCH; Start 06/05/17 at 18:30 Tiotropium [place] (Spiriva) 1 inh DAILY INH Last administered on 06/09/17 08: 52; Admin Dose 1 INH; Start 06/08/17 at 09:00 Benzonatate (Tessalon) 200 mg TID PO Last administered on 06/09/17 08:53; Admin Dose 200 MG; Start 06/08/17 at 09:00 Guaifenesin/ Dextromethorphan (Robitussin Dm Liquid Cup) 10 ml Q4H PRN PO COUGH Last administered on 06/08/17 21:11; Admin Dose 10 ML; Start 06/08/17 at 05:00 Furosemide (Lasix) 80 mg Q48H PO Last administered on 06/09/17 08:50; Admin Dose 80 MG; Start 06/09/17 at 08:00 FARNSICO KAM Jun 09, 2017 12:37
[2017-06-09] MEDS: SILVER SULFADIAZINE 1% 25 GM CR TOP SCH (13:07)
--- NOTE | 2017-06-09 15:02 | CONS ---
Date/Time of Note Date/Time of Note DATE: 06/09/17 TIME: 15:00 Assessment/Plan Assessment/Plan Chief Complaint/Hosp Course Pneumonia and encephalopathy Problems: Additional Assessment/Plan 86 yo male admitted with pneumonia, encephalopathy, acute on chronic heart failure with tiny embolic appearing infarcts right parietal, right temporal region on MRI. ECHO EF: 30% with akinetic segments on dual antiplatelet therapy. 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, possible embolic event from large vessel (right carotid stenosis) continue antiplatelet, continue tele monitoring for afib, NPO can give ASA 300 mg [place] for now, dual antiplatelet recommended once tolerating PO reliably would also recommend vascular surgery consultation for evaluation for Right carotid stenosis LDL and Hemoglobin A1C are at goal continue current medications maintain normotensive and afebrile, avoid hypotension avoid overly sedating medications DVT ppx PT/OT/Speech therapy Consultation Date/Type/Reason Admit Date/Time Jun 01, 2017 at 09:07 Initial Consult Date 06/05/17 Type of Consultation: cardiology Referring Provider: CORINNA GONZALES MD 24 HR Interval Summary Free Text/Dictation Doing well, no new complaints Constitutional: no complaints Exam/Review of Systems Vital Signs Vitals Vital Signs Date Time Temp Pulse Resp B/P Pulse Ox O2 Delivery O2 Flow Rate FiO2 06/09/17 12:04 63 06/09/17 12:00 98.0 19 110/52 93 06/09/17 08:00 Nasal Cannula 3.0 Intake and Output 06/08/17 06/08/17 06/09/17 15:00 23:00 07:00 Intake Total 650 ml 300 ml Balance 650 ml 300 ml Exam Constitutional: alert, oriented, well developed Psych: nl mood/affect, no complaints Head: atraumatic, normocephalic Eyes: EOMI, nl conjunctiva, nl lids, nl sclera ENMT: mucosa pink and moist, nl external ears & nose, nl lips & teeth, nl nasal mucosa & septum Neck: non-tender, supple Respiratory: clear to auscultation, normal air movement Cardiovascular: nl pulses, regular rate and rhythm Gastrointestinal: nl liver, spleen, soft Musculoskeletal: nl extremities to inspection Extremities: normal pulses Neurological: RAG ROOM SUPERVISOR II-XII intact, nl mental status, nl speech Skin: nl turgor Lymph: nl lymph nodes Results Result Diagram: 06/08/17 0852 06/09/17 1007 Results 24 hrs Laboratory Tests Test 06/09/17 02:19 06/09/17 10:07 Sodium Level 143 146 H Potassium Level 3.2 L 4.1 Chloride Level 104 105 Carbon Dioxide Level 32 H 34 H Anion Gap 10 11 Blood Urea Nitrogen 63 H 62 H Creatinine 2.85 H 3.09 H Glucose Level 124 155 Calcium Level 9.6 9.7 Magnesium Level 2.0 2.0 Total Bilirubin 0.3 Direct Bilirubin 0.00 Indirect Bilirubin 0.3 Aspartate Amino Transf (AST/SGOT) 26 Alanine Aminotransferase (ALT/SGPT) 36 Alkaline Phosphatase 46 Total Protein 6.6 # Albumin 3.2 L Globulin 3.40 H Albumin/Globulin Ratio 0.94 Medications Medications Current Medications Ondansetron HCl (Zofran Inj) 4 mg Q6H PRN IV NAUSEA AND/OR VOMITING; Start at 10:30 Acetaminophen (Tylenol Tab) 650 mg Q6H PRN PO PAIN LEVEL 1-3 OR FEVER Last administered on 06/02/17 08:59; Admin Dose 650 MG; Start 06/01/17 at 10:30 Acetaminophen/ Hydrocodone Bitart ([place] (5/325)) 1 tab Q6H PRN PO MODERATE PAIN LEVEL 4-6 Last administered on 06/01/17 11:44; Admin Dose 1 TAB; Start at 10:30 Docusate Sodium (Colace) 100 mg Q12H PRN PO CONSTIPATION; Start 06/01/17 at 10: 30 Magnesium Hydroxide (Milk Of Mag) 30 ml DAILY PRN PO CONSTIPATION; Start at 10:30 Sodium Biphosphate/ Sodium Phosphate (Fleet Enema) 133 ml DAILY PRN [place] CONSTIPATION; Start 06/01/17 at 10:30 Nitroglycerin (Nitroglycerin (Sl Tab) 0.4 Mg) 1 tab Q5M PRN SL ANGINA; Start at 10:30 Aspirin (Halfprin) 81 mg DAILY PO Last administered on 06/09/17 08:53; Admin Dose 81 MG; Start 06/02/17 at 09:00 Atorvastatin Calcium (Lipitor) 40 mg QHS PO Last administered on 06/08/17 21: 10; Admin Dose 40 MG; Start 06/01/17 at 21:00 Bisoprolol Fumarate (Zebeta) 10 mg DAILY PO Last administered on 06/09/17 08: 53; Admin Dose 10 MG; Start 06/02/17 at 09:00 Clopidogrel Bisulfate (plaVIX) 75 mg DAILY PO Last administered on 06/09/17 08 :52; Admin Dose 75 MG; Start 06/02/17 at 09:00 Dutasteride (Avodart) 0.5 mg DAILY PO Last administered on 06/09/17 08:51; Admin Dose 0.5 MG; Start 06/02/17 at 09:00 Pramipexole (Mirapex) 0.125 mg HS PO Last administered on 06/09/17 08:51; Admin Dose 0.125 MG; Start 06/01/17 at 21:00 Rivastigmine Tartrate (Exelon 4.6 Mg/ 24 Hr Patch) 1 patch DAILY TRANSDERM Last administered on 06/09/17 11:43; Admin Dose 1 PATCH; Start 06/02/17 at 09: 00 Silver Sulfadiazine (Thermazene 1% 25 Gm) 1 applic DAILY TOP Last administered on 06/09/17 13:07; Admin Dose 1 APPLIC; Start 06/02/17 at 09:00 Tamsulosin HCl (Flomax) 0.4 mg HS PO Last administered on 06/08/17 21:10; Admin Dose 0.4 MG; Start 06/01/17 at 21:00 Pantoprazole (Protonix Tab) 40 mg DAILY@06 PO Last administered on 06/09/17 05 :44; Admin Dose 40 MG; Start 06/02/17 at 06:00 Tramadol HCl (Ultram) 50 mg Q6H PRN PO PAIN Last administered on 06/02/17 20: 36; Admin Dose 50 MG; Start 06/01/17 at 22:00 Aspirin (Aspirin) 300 mg DAILY [place] Last administered on 06/07/17 09:48; Admin Dose 300 MG; Start 06/05/17 at 17:00 Nicotine (Nicoderm 21 Mg/ 24hr) 1 patch DAILY TRANSDERM Last administered on 08:43; Admin Dose 1 PATCH; Start 06/05/17 at 18:30 Tiotropium [place] (Spiriva) 1 inh DAILY INH Last administered on 06/09/17 08: 52; Admin Dose 1 INH; Start 06/08/17 at 09:00 Benzonatate (Tessalon) 200 mg TID PO Last administered on 06/09/17 13:07; Admin Dose 200 MG; Start 06/08/17 at 09:00 Guaifenesin/ Dextromethorphan (Robitussin Dm Liquid Cup) 10 ml Q4H PRN PO COUGH Last administered on 06/08/17 21:11; Admin Dose 10 ML; Start 06/08/17 at 05:00 Furosemide (Lasix) 80 mg Q48H PO Last administered on 06/09/17 08:50; Admin Dose 80 MG; Start 06/09/17 at 08:00 ANNALISA CASPER MD Jun 09, 2017 15:02
--- NOTE | 2017-06-09 16:01 | PN ---
Date/Time of Note Date/Time of Note DATE: 06/09/17 TIME: 15:56 Assessment/Plan VTE Prophylaxis VTE Prophylaxis Intervention: SCD's Lines/Catheters IV Catheter Type (from Nrsg): Saline Lock Urinary Cath still in place: No Assessment/Plan Assessment/Plan 86 yo M with dementia, chronic respiratory insufficiency admitted for SOB 2/2 HCAP and likely acute on chronic heart failure (EF 30%) also found to have MAGDA on CKD and NSTEMI with incidental finding of acute CVA #CVA: neuro on cs, likely cardioembolic origin. tele only with SR PT/OT/ST ongoing MRA with significant R ICA stenosis-->CM cs for outpatient vascular eval cont DAPT, statin, BP control #HCAP: sp 7 days of abx. pt back on home O2 #MAGDA on CKD: renal on consult, Cr stable #NSTEMI: likely from demand, cardiology following #HL, HTN, h/o CAD cont zetia, asa/plavix, home BP meds,lasix converted to PO Pt medically stable for tranfer to SNF but family requesting HH. will dc in AM once logistics arranged Subjective 24 Hr Interval Summary Free Text/Dictation Sleeping Exam/Review of Systems Vital Signs Vitals Vital Signs Date Time Temp Pulse Resp B/P Pulse Ox O2 Delivery O2 Flow Rate FiO2 06/09/17 12:04 63 06/09/17 12:00 98.0 19 110/52 93 06/09/17 08:00 Nasal Cannula 3.0 Intake and Output 06/08/17 06/08/17 06/09/17 15:00 23:00 07:00 Intake Total 650 ml 300 ml Balance 650 ml 300 ml Exam laying on R side resp nonlabored no abd distension no rashes MMM Results Result Diagram: 06/08/17 0852 06/09/17 1007 Results 24 hrs Laboratory Tests Test 06/09/17 02:19 06/09/17 10:07 Sodium Level 143 146 H Potassium Level 3.2 L 4.1 Chloride Level 104 105 Carbon Dioxide Level 32 H 34 H Anion Gap 10 11 Blood Urea Nitrogen 63 H 62 H Creatinine 2.85 H 3.09 H Glucose Level 124 155 Calcium Level 9.6 9.7 Magnesium Level 2.0 2.0 Total Bilirubin 0.3 Direct Bilirubin 0.00 Indirect Bilirubin 0.3 Aspartate Amino Transf (AST/SGOT) 26 Alanine Aminotransferase (ALT/SGPT) 36 Alkaline Phosphatase 46 Total Protein 6.6 # Albumin 3.2 L Globulin 3.40 H Albumin/Globulin Ratio 0.94 Medications Medications Current Medications Ondansetron HCl (Zofran Inj) 4 mg Q6H PRN IV NAUSEA AND/OR VOMITING; Start at 10:30 Acetaminophen (Tylenol Tab) 650 mg Q6H PRN PO PAIN LEVEL 1-3 OR FEVER Last administered on 06/02/17 08:59; Admin Dose 650 MG; Start 06/01/17 at 10:30 Acetaminophen/ Hydrocodone Bitart ([place] (5/325)) 1 tab Q6H PRN PO MODERATE PAIN LEVEL 4-6 Last administered on 06/01/17 11:44; Admin Dose 1 TAB; Start at 10:30 Docusate Sodium (Colace) 100 mg Q12H PRN PO CONSTIPATION; Start 06/01/17 at 10: 30 Magnesium Hydroxide (Milk Of Mag) 30 ml DAILY PRN PO CONSTIPATION; Start at 10:30 Sodium Biphosphate/ Sodium Phosphate (Fleet Enema) 133 ml DAILY PRN [place] CONSTIPATION; Start 06/01/17 at 10:30 Nitroglycerin (Nitroglycerin (Sl Tab) 0.4 Mg) 1 tab Q5M PRN SL ANGINA; Start at 10:30 Aspirin (Halfprin) 81 mg DAILY PO Last administered on 06/09/17 08:53; Admin Dose 81 MG; Start 06/02/17 at 09:00 Atorvastatin Calcium (Lipitor) 40 mg QHS PO Last administered on 06/08/17 21: 10; Admin Dose 40 MG; Start 06/01/17 at 21:00 Bisoprolol Fumarate (Zebeta) 10 mg DAILY PO Last administered on 06/09/17 08: 53; Admin Dose 10 MG; Start 06/02/17 at 09:00 Clopidogrel Bisulfate (plaVIX) 75 mg DAILY PO Last administered on 06/09/17 08 :52; Admin Dose 75 MG; Start 06/02/17 at 09:00 Dutasteride (Avodart) 0.5 mg DAILY PO Last administered on 06/09/17 08:51; Admin Dose 0.5 MG; Start 06/02/17 at 09:00 Pramipexole (Mirapex) 0.125 mg HS PO Last administered on 06/09/17 08:51; Admin Dose 0.125 MG; Start 06/01/17 at 21:00 Rivastigmine Tartrate (Exelon 4.6 Mg/ 24 Hr Patch) 1 patch DAILY TRANSDERM Last administered on 06/09/17 11:43; Admin Dose 1 PATCH; Start 06/02/17 at 09: 00 Silver Sulfadiazine (Thermazene 1% 25 Gm) 1 applic DAILY TOP Last administered on 06/09/17 13:07; Admin Dose 1 APPLIC; Start 06/02/17 at 09:00 Tamsulosin HCl (Flomax) 0.4 mg HS PO Last administered on 06/08/17 21:10; Admin Dose 0.4 MG; Start 06/01/17 at 21:00 Pantoprazole (Protonix Tab) 40 mg DAILY@06 PO Last administered on 06/09/17 05 :44; Admin Dose 40 MG; Start 06/02/17 at 06:00 Tramadol HCl (Ultram) 50 mg Q6H PRN PO PAIN Last administered on 06/02/17 20: 36; Admin Dose 50 MG; Start 06/01/17 at 22:00 Aspirin (Aspirin) 300 mg DAILY [place] Last administered on 06/07/17 09:48; Admin Dose 300 MG; Start 06/05/17 at 17:00 Nicotine (Nicoderm 21 Mg/ 24hr) 1 patch DAILY TRANSDERM Last administered on 08:43; Admin Dose 1 PATCH; Start 06/05/17 at 18:30 Tiotropium [place] (Spiriva) 1 inh DAILY INH Last administered on 06/09/17 08: 52; Admin Dose 1 INH; Start 06/08/17 at 09:00 Benzonatate (Tessalon) 200 mg TID PO Last administered on 06/09/17 13:07; Admin Dose 200 MG; Start 06/08/17 at 09:00 Guaifenesin/ Dextromethorphan (Robitussin Dm Liquid Cup) 10 ml Q4H PRN PO COUGH Last administered on 06/08/17 21:11; Admin Dose 10 ML; Start 06/08/17 at 05:00 Furosemide (Lasix) 80 mg Q48H PO Last administered on 06/09/17t 08:50; Admin Dose 80 MG; Start 06/09/17 at 08:00 CORINNA GONZALES MD Jun 09, 2017 16:01
[2017-06-09] MEDS: TAMSULOSIN (SR) 0.4 MG CAP PO SCH (20:52)
[2017-06-09] MEDS: ATORVASTATIN 40 MG TAB PO SCH (20:52)
[2017-06-10] VITALS (9 sets, daily range): BP systolic 103–148; BP diastolic 50–62; PULSE 51–58; RESP 16–18
[2017-06-10] MEDS: PANTOPRAZOLE (EC) 40 MG TAB PO SCH (07:00)
[2017-06-10 08:33] LABS: CALCIUM 9.7 mg/dl (8.4-10.2); CREATININE 2.73 mg/dl (0.61-1.24); POTASSIUM 4.1 mmol/L (3.5-5.1)
[2017-06-10] MEDS: CLOPIDOGREL 75 MG TAB PO SCH (08:59)
[2017-06-10] MEDS: NICOTINE (21 MG/24 HR) PATCH TRANSDERM SCH (08:59)
[2017-06-10] MEDS: BENZONATATE 100 MG CAP PO SCH ×2 (09:00→12:53)
[2017-06-10] MEDS: TIOTROPIUM 18 MCG CAPSULE INHA DEV INH SCH (09:00)
[2017-06-10] MEDS: RIVASTIGMINE 4.6MG/24H PATCH TRANSDERM SCH (09:00)
[2017-06-10] MEDS: DUTASTERIDE 0.5 MG CAP PO SCH (09:01)
[2017-06-10] MEDS: BISOPROLOL 5 MG TAB PO SCH (09:02)
[2017-06-10] MEDS: ASPIRIN (EC) 81 MG TAB PO SCH (09:02)
[2017-06-10] MEDS: SILVER SULFADIAZINE 1% 25 GM CR TOP SCH (09:03)
--- NOTE | 2017-06-10 12:07 | CONS ---
Date/Time of Note Date/Time of Note DATE: 06/10/17 TIME: 12:05 Assessment/Plan Assessment/Plan Additional Assessment/Plan Assessment recommendations; 1. Patient admitted with CHF exacerbation and right lower lobe pneumonia doing very well overall. Off antibiotics. 3. Chronic renal failure, on hemodialysis. 3. Complaint stated CHF. 4. History of BPH. Continue current treatment. Consider discharge. Consultation Date/Type/Reason Admit Date/Time Jun 01, 2017 at 09:07 Initial Consult Date 06/01/17 Type of Consultation: Pulmonary Referring Provider: CORINNA GONZALES MD 24 HR Interval Summary Free Text/Dictation Patient's condition is stable. Complains of occasional dizziness and cough. Denies any shortness of breath, chest pain. General exam; elderly male, awake and alert. Currently in no distress. Laying flat in bed. Exam/Review of Systems Vital Signs Vitals Vital Signs Date Time Temp Pulse Resp B/P Pulse Ox O2 Delivery O2 Flow Rate FiO2 06/10/17 11:48 98.2 53 17 112/51 95 06/09/17 21:06 1.5 06/09/17 20:00 Nasal Cannula Intake and Output 06/09/17 06/09/17 06/10/17 15:00 23:00 07:00 Intake Total 400 ml Balance 400 ml Exam HEENT exam; supple neck, no lymphadenopathy. Positive JVD. No neck masses. Has bilateral intraocular lens implants. Chest exam; diminished but clear breath sounds. S1-S2 audible, no murmurs. Regular rhythm. Abdomen exam; soft, nontender. No organomegaly. Bowel sounds audible. Extremity exam; no edema. APRON TRIMMER exam; no focal deficit. Results Result Diagram: 06/08/17 0852 06/10/17 0727 Results 24 hrs Laboratory Tests Test 06/10/17 07:27 06/10/17 08:49 Sodium Level 145 H Potassium Level 4.1 Chloride Level 103 Carbon Dioxide Level 34 H Anion Gap 12 Blood Urea Nitrogen 60 H Creatinine 2.73 H Glucose Level 113 # Calcium Level 9.7 Bedside Glucose 111 Medications Medications Current Medications Ondansetron HCl (Zofran Inj) 4 mg Q6H PRN IV NAUSEA AND/OR VOMITING; Start at 10:30 Acetaminophen (Tylenol Tab) 650 mg Q6H PRN PO PAIN LEVEL 1-3 OR FEVER Last administered on 06/02/17 08:59; Admin Dose 650 MG; Start 06/01/17 at 10:30 Docusate Sodium (Colace) 100 mg Q12H PRN PO CONSTIPATION; Start 06/01/17 at 10: 30 Magnesium Hydroxide (Milk Of Mag) 30 ml DAILY PRN PO CONSTIPATION; Start at 10:30 Sodium Biphosphate/ Sodium Phosphate (Fleet Enema) 133 ml DAILY PRN [place] CONSTIPATION; Start 06/01/17 at 10:30 Nitroglycerin (Nitroglycerin (Sl Tab) 0.4 Mg) 1 tab Q5M PRN SL ANGINA; Start at 10:30 Aspirin (Halfprin) 81 mg DAILY PO Last administered on 06/10/17 09:02; Admin Dose 81 MG; Start 06/02/17 at 09:00 Atorvastatin Calcium (Lipitor) 40 mg QHS PO Last administered on 06/09/17 20: 52; Admin Dose 40 MG; Start 06/01/17 at 21:00 Bisoprolol Fumarate (Zebeta) 10 mg DAILY PO Last administered on 06/10/17 09: 02; Admin Dose 10 MG; Start 06/02/17 at 09:00 Clopidogrel Bisulfate (plaVIX) 75 mg DAILY PO Last administered on 06/10/17 08 :59; Admin Dose 75 MG; Start 06/02/17 at 09:00 Dutasteride (Avodart) 0.5 mg DAILY PO Last administered on 06/10/17 09:01; Admin Dose 0.5 MG; Start 06/02/17 at 09:00 Pramipexole (Mirapex) 0.125 mg HS PO Last administered on 06/09/17 08:51; Admin Dose 0.125 MG; Start 06/01/17 at 21:00 Rivastigmine Tartrate (Exelon 4.6 Mg/ 24 Hr Patch) 1 patch DAILY TRANSDERM Last administered on 06/10/17 09:00; Admin Dose 1 PATCH; Start 06/02/17 at 09: 00 Silver Sulfadiazine (Thermazene 1% 25 Gm) 1 applic DAILY TOP Last administered on 06/10/17 09:03; Admin Dose 1 APPLIC; Start 06/02/17 at 09:00 Tamsulosin HCl (Flomax) 0.4 mg HS PO Last administered on 06/09/17 20:52; Admin Dose 0.4 MG; Start 06/01/17 at 21:00 Pantoprazole (Protonix Tab) 40 mg DAILY@06 PO Last administered on 06/10/17 07 :00; Admin Dose 40 MG; Start 06/02/17 at 06:00 Nicotine (Nicoderm 21 Mg/ 24hr) 1 patch DAILY TRANSDERM Last administered on 08:59; Admin Dose 1 PATCH; Start 06/05/17 at 18:30 Tiotropium [place] (Spiriva) 1 inh DAILY INH Last administered on 06/10/17 09: 00; Admin Dose 1 INH; Start 06/08/17 at 09:00 Benzonatate (Tessalon) 200 mg TID PO Last administered on 06/10/17 09:00; Admin Dose 200 MG; Start 06/08/17 at 09:00 Guaifenesin/ Dextromethorphan (Robitussin Dm Liquid Cup) 10 ml Q4H PRN PO COUGH Last administered on 06/08/17 21:11; Admin Dose 10 ML; Start 06/08/17 at 05:00 FRANSICO KAM Jun 10, 2017 12:07
[2017-06-10] MEDS ORDERED: NICO1PAT6 TRANSDERM (12:49)
--- NOTE | 2017-06-10 13:21 | DS ---
Date/Time of Note Date/Time of Note DATE: 06/10/17 TIME: 13:20 Discharge Summary Admission/Discharge Info Admit Date/Time Jun 01, 2017 at 09:07 Discharge Date/Time Discharge Diagnosis HCAP, acute on chronic heart failure (EF 30%), MAGDA on CKD, NSTEMI, acute CVA Patient Condition: Stable Consults neurology, cardiology, pulmonology, nephrology Procedures 9.18 MRI brain IMPRESSION: 1. Two sub-centimeter foci of restricted diffusion, 1 within the right temporal and a second within the parietal lobe compatible with the acute / early subacute the lacunar infarcts likely micro embolic. 2. No intracranial hemorrhage or other acute intracranial abnormality. 3. Mild chronic microvascular ischemic changes and cerebral volume loss. 9.19 carotid dopplers IMPRESSION: High-grade, near occlusion, greater than 70% stenosis in the right ICA. - validated velocity measurements with angiographic measurements, velocity criteria are extrapolated from diameter data as defined by the Society of Radiologists in Ultrasound Consensus Conference Radiology 2003; 229;340-346. This study does indirectly reference the measurement of the distal ICA diameter as the denominator for stenosis measurement. Normal antegrade flow in the vertebral arteries bilaterally. Further evaluation with a CT angiogram is recommended. 9.20 MRA neck IMPRESSION: 1. Suboptimal motion degraded study. 2. High-grade stenosis of the proximal right internal carotid artery estimated at least 80% by NASCET criteria. 3. Otherwise no significant stenosis in the remainder of visualized major neck arteries. Hx of Present Illness 86-year-old male past medical history of questionable heart valvular disease, possible WI in the past, smoker, essential hypertension, high cholesterol who presents today with shortness of breath. Most of the information is obtained from the ER documentation as the patient is not able to provide full HPI presently.. Patient symptoms have been going on for the last 3 days the patient has had generalized weakness, confusion and subjective fever. Positive productive cough of yellowish sputum as well. When patient arrived to ER he was short of breath and hypoxic to low 80s responsive to breathing treatment. There was also concern of possible EKG changes and on-call blade changer was called to evaluate for left heart cath, but they determined patient does not need angiogram at this time. No diarrhea or constipation, no upper or lower GI bleeding. Hospital Course 86 yo M with dementia, chronic respiratory insufficiency admitted for SOB 2/2 HCAP and acute on chronic heart failure (EF 30%) also found to have MAGDA on CKD and NSTEMI with incidental finding of acute CVA. For HCAP, pt completed 7 days of abx and was able to be weaned down to home O2 needs. Regarding CVA, pt seen by neuro. Etio likely embolic event from severe cardiomyopathy, possible embolic event from large vessel (right carotid stenosis ). Pt already on DAPT. Neurology advising vascular surgery eval for carotid stenosis. For CHF pt dieresed, converted back to PO lasix at discharge. For NSTEMI, cardiology advised medical management. ARU advised, family wanted HH which was arranged prior to discharge. Changes from admit meds: ARB stopped as BP did not allow. NRT started copy of dc summary faxed to PCP and given to patient prior to discharge Home Meds Active Scripts Nicotine* (Nicotine* Patch) 21 mg/day Patch, 1 PATCH TRANSDERM DAILY for 30 Days , #30 Prov:CORINNA GONZALES MD 06/10/17 Reported Medications Pramipexole* (Pramipexole*) 0.125 Mg Tablet, 0.125 MG PO HS, TAB 06/01/17 Esomeprazole Mag Trihydrate (Nexium) 40 Mg Capsule.dr, 40 MG PO DAILY, #30 CAP 06/01/17 Clopidogrel Bisulfate (Clopidogrel) 75 Mg Tablet, 75 MG PO DAILY, #30 TAB 06/01/17 Bisoprolol Fumarate* (Bisoprolol Fumarate*) 10 Mg Tablet, 10 MG PO DAILY, TAB 06/01/17 Valsartan* (Diovan*) 320 Mg Tablet, 320 MG PO DAILY, TAB 06/01/17 Furosemide* (Lasix*) 40 Mg Tablet, 40 MG PO DAILY, TAB 06/01/17 Tamsulosin Hcl* (Flomax*) 0.4 Mg Cap.er.24h, 0.4 MG PO HS, CAP 06/01/17 Atorvastatin* (Atorvastatin*) 40 Mg Tablet, 40 MG PO QHS, #30 TAB 06/01/17 Potassium Chloride* (K-Dur*) 10 Meq Tab.prt.sr, 10 MEQ PO DAILY, TAB 06/01/17 Dutasteride* (Avodart*) 0.5 Mg Capsule, 0.5 MG PO DAILY, CAP 06/01/17 Silver Sulfadiazine* (Silvadene*) 1% - 20 Gm Cream.gm., 1 APPLIC TOP DAILY, #1 TUB 06/01/17 Rivastigmine* Patch (Exelon* Patch) 4.6 Mg/24 Hr Patch.td24, 1 PATCH TD DAILY, PATCH 06/01/17 Tiotropium [place]* (Spiriva*) 18 Mcg Cap.w.dev, 1 CAP INHALATION DAILY, #30 CAP 06/01/17 Aspirin Ec (Aspir 81) 81 Mg Tablet.dr, 81 MG PO DAILY 06/02/12 Follow-up Plan home health VASCULAR SURGERY FOR CAROTID EVAL PCP within 1 week Cardiology within 2 [facility] Primary Care Provider Araceli Bolton [address] [place] [address] Fax Number Time spent on discharge: > 30 minutes Pending Labs Laboratory Tests Test 06/10/17 07:27 06/10/17 08:49 Sodium Level 145mmol/L (135-144) Potassium Level 4.1mmol/L (3.5-5.1) Chloride Level 103mmol/L (97-110) Carbon Dioxide Level 34mmol/L (21-31) Anion Gap 12 (8-16) Blood Urea Nitrogen 60mg/dl (7-20) Creatinine 2.73mg/dl (0.61-1.24) Glucose Level 113mg/dl (70-220) Calcium Level 9.7mg/dl (8.4-10.2) Bedside Glucose 111mg/dL (70-220) Copies To: CC: ERIKA CLAY MD, ELLEN MD Jun 10, 2017 13:20 CORINNA GONZALES MD Jun 10, 2017 13:20
--- NOTE | 2017-06-10 14:29 | PDOCDIS ---
Discharge Instructions DIAGNOSIS Discharge Diagnosis HCAP, acute on chronic heart failure (EF 30%), MAGDA on CKD, NSTEMI, acute CVA CONDITION Patient Condition: Stable HOME CARE INSTRUCTIONS: Special Diet: Pureed with nectar thick liquid FOLLOW UP/APPOINTMENTS Follow-up Plan Follow up with your regular doctor within 1 week for a blood pressure and blood chemistry check Please schedule an appointment to see the vascular surgeon for the narrowed artery in your neck [place] Office Address [id number] [id number] Office Please schedule and follow up with your regular heart doctor/textile science technician within 2 weeks. If you do not have a textile science technician here is the info for the one you saw in the hospital Dr [place] Office Address [id number] [address] Office CORINNA GONZALES MD Jun 10, 2017 14:29
--- NOTE | 2017-06-10 14:51 | CONS ---
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 ECHO EF: 30% with akinetic segments on dual antiplatelet therapy. 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, possible embolic event from large vessel (right carotid stenosis) continue antiplatelet, continue tele monitoring for afib, NPO can give ASA 300 mg IN for now, dual antiplatelet recommended once tolerating PO reliably would also recommend vascular surgery consultation for evaluation for Right carotid stenosis LDL and Hemoglobin A1C are at goal continue current medications maintain normotensive and afebrile, avoid hypotension avoid overly sedating medications DVT ppx PT/OT/Speech therapy Okay to DC home Consultation Date/Type/Reason Admit Date/Time Jun 01, 2017 at 09:07 Initial Consult Date 06/05/17 Type of Consultation: Pulmonary Referring Provider: CORINNA GONZALES MD 24 HR Interval Summary Free Text/Dictation Doing well. No new complaints Exam/Review of Systems Vital Signs Vitals Vital Signs Date Time Temp Pulse Resp B/P Pulse Ox O2 Delivery O2 Flow Rate FiO2 06/10/17 12:00 53 06/10/17 11:48 98.2 17 112/51 95 06/09/17 21:06 1.5 06/09/17 20:00 Nasal Cannula Intake and Output 06/09/17 06/09/17 06/10/17 15:00 23:00 07:00 Intake Total 400 ml Balance 400 ml Exam Constitutional: alert, oriented, well developed Psych: nl mood/affect, no complaints Head: atraumatic, normocephalic Eyes: EOMI, nl conjunctiva, nl lids, nl sclera ENMT: mucosa pink and moist, nl external ears & nose, nl lips & teeth, nl nasal mucosa & septum Neck: non-tender, supple Respiratory: clear to auscultation, normal air movement Cardiovascular: nl pulses, regular rate and rhythm Gastrointestinal: nl liver, spleen, non-tender, soft Musculoskeletal: nl extremities to inspection Extremities: normal pulses Neurological: ACCOUNT GENERAL MANAGER II-XII intact, nl mental status, nl speech Results Result Diagram: 06/08/17 0852 06/10/17 0727 Results 24 hrs Laboratory Tests Test 06/10/17 07:27 06/10/17 08:49 Sodium Level 145 H Potassium Level 4.1 Chloride Level 103 Carbon Dioxide Level 34 H Anion Gap 12 Blood Urea Nitrogen 60 H Creatinine 2.73 H Glucose Level 113 # Calcium Level 9.7 Bedside Glucose 111 Medications Medications Current Medications Ondansetron HCl (Zofran Inj) 4 mg Q6H PRN IV NAUSEA AND/OR VOMITING; Start at 10:30 Acetaminophen (Tylenol Tab) 650 mg Q6H PRN PO PAIN LEVEL 1-3 OR FEVER Last administered on 06/02/17 08:59; Admin Dose 650 MG; Start 06/01/17 at 10:30 Docusate Sodium (Colace) 100 mg Q12H PRN PO CONSTIPATION; Start 06/01/17 at 10: 30 Magnesium Hydroxide (Milk Of Mag) 30 ml DAILY PRN PO CONSTIPATION; Start at 10:30 Sodium Biphosphate/ Sodium Phosphate (Fleet Enema) 133 ml DAILY PRN IN CONSTIPATION; Start 06/01/17 at 10:30 Nitroglycerin (Nitroglycerin (Sl Tab) 0.4 Mg) 1 tab Q5M PRN SL ANGINA; Start at 10:30 Aspirin (Halfprin) 81 mg DAILY PO Last administered on 06/10/17 09:02; Admin Dose 81 MG; Start 06/02/17 at 09:00 Atorvastatin Calcium (Lipitor) 40 mg QHS PO Last administered on 06/09/17 20: 52; Admin Dose 40 MG; Start 06/01/17 at 21:00 Bisoprolol Fumarate (Zebeta) 10 mg DAILY PO Last administered on 06/10/17 09: 02; Admin Dose 10 MG; Start 06/02/17 at 09:00 Clopidogrel Bisulfate (plaVIX) 75 mg DAILY PO Last administered on 06/10/17 08 :59; Admin Dose 75 MG; Start 06/02/17 at 09:00 Dutasteride (Avodart) 0.5 mg DAILY PO Last administered on 06/10/17 09:01; Admin Dose 0.5 MG; Start 06/02/17 at 09:00 Pramipexole (Mirapex) 0.125 mg HS PO Last administered on 06/09/17 08:51; Admin Dose 0.125 MG; Start 06/01/17 at 21:00 Rivastigmine Tartrate (Exelon 4.6 Mg/ 24 Hr Patch) 1 patch DAILY TRANSDERM Last administered on 06/10/17 09:00; Admin Dose 1 PATCH; Start 06/02/17 at 09: 00 Silver Sulfadiazine (Thermazene 1% 25 Gm) 1 applic DAILY TOP Last administered on 06/10/17 09:03; Admin Dose 1 APPLIC; Start 06/02/17 at 09:00 Tamsulosin HCl (Flomax) 0.4 mg HS PO Last administered on 06/09/17 20:52; Admin Dose 0.4 MG; Start 06/01/17 at 21:00 Pantoprazole (Protonix Tab) 40 mg DAILY@06 PO Last administered on 06/10/17 07 :00; Admin Dose 40 MG; Start 06/02/17 at 06:00 Nicotine (Nicoderm 21 Mg/ 24hr) 1 patch DAILY TRANSDERM Last administered on 08:59; Admin Dose 1 PATCH; Start 06/05/17 at 18:30 Tiotropium [place] (Spiriva) 1 inh DAILY INH Last administered on 06/10/17 09: 00; Admin Dose 1 INH; Start 06/08/17 at 09:00 Benzonatate (Tessalon) 200 mg TID PO Last administered on 06/10/17 12:53; Admin Dose 200 MG; Start 06/08/17 at 09:00 Guaifenesin/ Dextromethorphan (Robitussin Dm Liquid Cup) 10 ml Q4H PRN PO COUGH Last administered on 06/08/17 21:11; Admin Dose 10 ML; Start 06/08/17 at 05:00 ANNALISA CASPER MD Jun 10, 2017 14:51
== END 2017-06-10 16:40 | disposition home health service (06) | DRG 280 ==
LOC: E/R 07:21 → MS4 09:07
PROVIDERS: ADMIT Internal Medicine; ATTEND Internal Medicine
DX: I21.4 Non-ST elevation (NSTEMI) myocardial infarction (principal); J18.9 Pneumonia, unspecified organism; G93.40 Encephalopathy, unspecified; I50.23 Acute on chronic systolic (congestive) heart failure; I63.131 Cerebral infarction due to embolism of right carotid artery; N17.9 Acute kidney failure, unspecified; J96.01 Acute respiratory failure with hypoxia; J96.02 Acute respiratory failure with hypercapnia; I13.0 Hypertensive heart and chronic kidney disease with heart failure and stage 1 through stage 4 chronic kidney disease, or unspecified chronic kidney disease; I42.9 Cardiomyopathy, unspecified; J44.1 Chronic obstructive pulmonary disease with (acute) exacerbation; N18.9 Chronic kidney disease, unspecified; F17.210 Nicotine dependence, cigarettes, uncomplicated; E78.5 Hyperlipidemia, unspecified; F10.10 Alcohol abuse, uncomplicated; I25.10 Atherosclerotic heart disease of native coronary artery without angina pectoris; N40.0 Benign prostatic hyperplasia without lower urinary tract symptoms; E87.5 Hyperkalemia
CPT/HCPCS: 36415; 36600; 70546; 70549; 70551; 71010; 74230; 76775; 80048; 80053; 80061; 80202; 81001; 81003; 82550; 82553; 82570; 82803; 82962; 83036; 83605; 83735; 83880; 84100; 84300; 84439; 84443; 84484; 85025; 85610; 85730; 87040; 92526; 92610; 92611; 93005; 93306; 93880; 94644; 94660; 96374; 96375; 97003; 97110; 97116; 97162; 97530; 97535; J1940; J2060; J2270; J2543; J3370; J3480; J7030; J7070

== ENCOUNTER 2017-08-14 14:03 | Emergency (ER) | payer MEDICARE, OTHER ==
[~2017-08-14] VITALS: Ht 157.5 cm; Wt 71.2 kg
[~2017-08-14 14:03] MED LIST changes: +ATOR40TA68 PO; +BISO10TA16 PO; +CLOP75TA27 PO; +DUTA0.5C PO; +EXEL46P TD; +FURO-109 PO; +NICO1PAT6 TRANSDERM; +POTA10TA37 PO; +PRAM0.12 PO; +SILV20CR14 TOP; +TAMS-14 PO; +TIOT18CA INHALATION
[2017-08-14 14:14] VITALS: Ht 157.5 cm; Wt 71.2 kg
--- NOTE | 2017-08-14 17:17 | ERD ---
ER Documentation Chief Complaint Chief Complaint RASH ON HIS R ARM (VISHNU ARREDONDO) HPI 86-year-old male who presents emergency department for vesicular lesions to his right arm and right upper back that started yesterday. Denies headache, dizziness, blurry vision, neck pain, neck stiffness, shoulder pain, chest pain, back pain, abdomen, nausea, vomiting, constipation, diarrhea, loss of bowel and bladder control, change in bowel bladder habits, recent travel, recent long travel, recent exposure to any illness, recent antibiotic use in the last 3 months, recent antibiotic use in the last few months, fever, chills, numbness or tingling sensation, difficulty walking. (VISHNU ARREDONDO) ROS All systems reviewed and are negative except as per history of present illness. (BROOKSCHETNAVISHNU) Medications Home Meds Active Scripts Prednisone* (Prednisone*) 50 Mg Tablet, 60 MG PO DAILY for 5 Days, TAB Prov:VISHNU ARREDONDO 08/14/17 Hydrocodone/Acetaminophen ([place] 5-325 Tablet) 1 Each Tablet, 1 TAB PO Q6H Y for PAIN, #15 TAB Prov:VISHNU ARREDONDO 08/14/17 Diphenhydramine Hcl* (Diphenhydramine Hcl*) 25 Mg Capsule, 25 MG PO Q8 Y for ITCHING, #30 CAP Prov:VISHNU ARREDONDO 08/14/17 Acyclovir* (Zovirax*) 800 Mg Tablet, 800 MG PO 5 TIMES DAILY for 7 Days, TAB Prov:VISHNU ARREDONDO 08/14/17 Nicotine* (Nicotine* Patch) 21 mg/day Patch, 1 PATCH TRANSDERM DAILY for 30 Days , #30 Prov:CORINNA GONZALES MD 06/10/17 Reported Medications Pramipexole* (Pramipexole*) 0.125 Mg Tablet, 0.125 MG PO HS, TAB 06/01/17 Clopidogrel Bisulfate (Clopidogrel) 75 Mg Tablet, 75 MG PO DAILY, #30 TAB 06/01/17 Bisoprolol Fumarate* (Bisoprolol Fumarate*) 10 Mg Tablet, 10 MG PO DAILY, TAB 06/01/17 Furosemide* (Lasix*) 40 Mg Tablet, 40 MG PO DAILY, TAB 06/01/17 Tamsulosin Hcl* (Flomax*) 0.4 Mg Cap.er.24h, 0.4 MG PO HS, CAP 06/01/17 Atorvastatin* (Atorvastatin*) 40 Mg Tablet, 40 MG PO QHS, #30 TAB 06/01/17 Potassium Chloride* (K-Dur*) 10 Meq Tab.prt.sr, 10 MEQ PO DAILY, TAB 06/01/17 Dutasteride* (Avodart*) 0.5 Mg Capsule, 0.5 MG PO DAILY, CAP 06/01/17 Silver Sulfadiazine* (Silvadene*) 1% - 20 Gm Cream.gm., 1 APPLIC TOP DAILY, #1 TUB 06/01/17 Rivastigmine* Patch (Exelon* Patch) 4.6 Mg/24 Hr Patch.td24, 1 PATCH TD DAILY, PATCH 06/01/17 Tiotropium [place]* (Spiriva*) 18 Mcg Cap.w.dev, 1 CAP INHALATION DAILY, #30 CAP 06/01/17 Aspirin Ec (Aspir 81) 81 Mg Tablet.dr, 81 MG PO DAILY 06/02/12 Allergies Allergies: Coded Allergies: No Known Allergy (Unverified , 06/01/17) PMhx/Soc History of Surgery: No Anesthesia Reaction: No Hx Neurological Disorder: No Hx Respiratory Disorders: No Hx Cardiac Disorders: No Hx Psychiatric Problems: No Hx Miscellaneous Medical Probl: No Hx Alcohol Use: Yes Hx Substance Use: No Hx Tobacco Use: Yes Smoking Status: Former smoker (VISHNU ARREDONDO) Physical Exam Vitals Vital Signs Date Time Temp Pulse Resp B/P Pulse Ox O2 Delivery O2 Flow Rate FiO2 08/14/17 14:14 98.0 75 18 111/59 95 (CHATO DRAKE MD) Physical Exam Const: Alert and oriented 4. Not in respiratory distress. Head: Atraumatic Eyes: Normal Conjunctiva. PERRLA. No pain on eye movement. ENT: Normal External Ears, Nose and Mouth. Neck: Full range of motion..~ No meningismus. Resp: Clear to auscultation bilaterally Cardio: Regular rate and rhythm, no murmurs Abd: Soft, non tender, non distended. Normal bowel sounds Skin: Noted vesicular lesions to right upper back and right arm. No bleeding. No discharges. Back: No midline or flank tenderness Ext: No cyanosis, or edema Neur: Awake and alert. Romberg test is negative. No neurological deficits. Ambulatory with steady gait. Psych: Normal Mood and Affect (VISHNU ARREDONDO) Procedures/MDM I have low suspicion for severe viral infection, severe bacterial infection, sepsis. Final diagnosis: Shingles. Case was discussed with supervising emergency room physician, Dr. Chato Drake who also examined the patient and agreed with my medical decision making to discharge patient and prescribe the patient with antiviral medication, steroids, pain medicine. Prescription: Acyclovir. Prednisone. Gabapentin. Benadryl. Follow-up with PCP in the next 24-48 hours. Come back here in the emergency department for any new symptoms or any worsening of symptoms. All questions and concerns are answered. Patient and family member verbalized understanding and agreed with the plan of care. Hemodynamically stable on discharge. (VISHNU ARREDONDO) Attending addendum: I examined the patient and agree that his exam is consistent with herpes zoster. It appears to be in a C6 or C7 dermatomal distribution, and it appears to be single dermatome. The patient has no systemic symptoms. He is not immunosuppressed. He will be treated with acyclovir and prednisone, and was counseled on close PMD follow-up and return precautions. (CHATO DRAKE MD) Departure Diagnosis: Primary Impression: Shingles Additional Impression: Shingles rash Condition: Stable Additional Instructions: Follow-up with PCP in the next 24-48 hours. Come back here in the emergency department for any new symptoms or any worsening of symptoms. All questions and concerns are answered. Patient and family member verbalized understanding and agreed with the plan of care. VISHNU ARREDONDO Aug 14, 2017 17:17 CHATO DRAKE MD Aug 14, 2017 21:15
[2017-08-14] MEDS ORDERED: ACYC800T57 PO (17:18)
[2017-08-14] MEDS ORDERED: DIPH25CA6 PO (17:20)
[2017-08-14] MEDS ORDERED: HYDR-906 PO (17:24)
[2017-08-14] MEDS ORDERED: PRED50TA PO (17:25)
== END 2017-08-14 17:45 | disposition home or self-care (01) ==
LOC: FTE 14:03
DX: B02.9 Zoster without complications (principal); Z79.82 Long term (current) use of aspirin; Z87.891 Personal history of nicotine dependence
CPT/HCPCS: 99284

== ENCOUNTER 2017-08-21 08:26 | Emergency (ER) | payer MEDICARE, OTHER ==
[~2017-08-21] VITALS: Wt 67.0 kg
[~2017-08-21 08:26] MED LIST changes: +ACYC800T57 PO; +DIPH25CA6 PO; +HYDR-906 PO; +PRED50TA PO
[2017-08-21] MEDS ORDERED: ACETAMINOPHEN 500 MG TAB PO STA (09:20)
--- NOTE | 2017-08-21 09:45 | RADRPT ---
PROCEDURE: XR Right Shoulder. CLINICAL INDICATION: Trauma. Right shoulder pain. TECHNIQUE: Three views. Frontal internal rotation, frontal external rotation, and scapular Y-view . COMPARISON: No prior study is available for comparison. FINDINGS: There is an acute transverse fracture through the surgical neck of the humerus with mild impaction a nd angulation. There is no other fracture and there is no dislocation. The soft tissues are normal. Articular surfaces are intact. There is no lytic or blastic lesion. There is no radiopaque foreign body. IMPRESSION: 1. Acute transverse fracture through the surgical neck of the humerus with mild impaction and angul ation. 2. Otherwise unremarkable images of the right shoulder. RPTAT: QQ .Scott Alvarado MD, MD Date Time Electronically viewed and signed by .Scott Alvarado MD, on 08/21/2017 09:45 .R/
--- NOTE | 2017-08-21 09:46 | RADRPT ---
PROCEDURE: XR Right Humerus. CLINICAL INDICATION: Right arm pain. TECHNIQUE: AP and lateral views of the right humerus were performed. COMPARISON: None. FINDINGS: There is an acute transverse mildly impacted and angulated fracture of the surgical neck of the righ t humerus. There is no other fracture and there is no dislocation. The soft tissues are normal. Articular surfaces are intact. There is no lytic or blastic lesion. There is no radiopaque foreign body. IMPRESSION: 1. Acute fracture of the surgical neck of the right humerus. 2. Otherwise unremarkable images of the right humerus. RPTAT: QQ .Scott Alvarado MD, MD Date Time Electronically viewed and signed by .Scott Alvarado MD, on 08/21/2017 09:46 .R/
--- NOTE | 2017-08-21 09:50 | ERD ---
ER Documentation Chief Complaint Chief Complaint RIGHT SHOULDER/ARM PAIN, ONSET THIS AM, NO INJURY HPI An 86-year-old male presents to the emergency department today with his son for complaints of right arm pain and bruising. Patient is not really verbal but does live with the son and the son states that he did witness the fall. States that he tripped over the carpet as he was in his sandals. States that he noted the bruise today and the bruise was not there yesterday. States that he takes many medications but is unsure what they are. States he was diagnosed with shingles a little bit ago here at the hospital. Denies any fevers or chills. Denies that the patient hit his head or loss consciousness. ROS All systems reviewed and are negative except as per history of present illness. Medications Home Meds Active Scripts Acetaminophen* (Tylophen*) 500 Mg Capsule, 1 CAP PO Q6H Y for PAIN AND OR ELEVATED TEMP, #30 CAP Prov:SHALA SCHULTZ PA-C 08/21/17 Prednisone* (Prednisone*) 50 Mg Tablet, 60 MG PO DAILY for 5 Days, TAB Prov:ARNULFOVISHNU Freitas 08/14/17 Hydrocodone/Acetaminophen ([place] 5-325 Tablet) 1 Each Tablet, 1 TAB PO Q6H Y for PAIN, #15 TAB Prov:FREDRICKALEJANDROVISHNU Freitas 08/14/17 Diphenhydramine Hcl* (Diphenhydramine Hcl*) 25 Mg Capsule, 25 MG PO Q8 Y for ITCHING, #30 CAP Prov:ARNULFOLINDSEYAMBAR Fortino 08/14/17 Acyclovir* (Zovirax*) 800 Mg Tablet, 800 MG PO 5 TIMES DAILY for 7 Days, TAB Prov:FREDRICKALEJANDROVISHNU Freitas 08/14/17 Nicotine* (Nicotine* Patch) 21 mg/day Patch, 1 PATCH TRANSDERM DAILY for 30 Days , #30 Prov:CORINNA GONZALES MD 06/10/17 Reported Medications Pramipexole* (Pramipexole*) 0.125 Mg Tablet, 0.125 MG PO HS, TAB 06/01/17 Clopidogrel Bisulfate (Clopidogrel) 75 Mg Tablet, 75 MG PO DAILY, #30 TAB 06/01/17 Bisoprolol Fumarate* (Bisoprolol Fumarate*) 10 Mg Tablet, 10 MG PO DAILY, TAB 06/01/17 Furosemide* (Lasix*) 40 Mg Tablet, 40 MG PO DAILY, TAB 06/01/17 Tamsulosin Hcl* (Flomax*) 0.4 Mg Cap.er.24h, 0.4 MG PO HS, CAP 06/01/17 Atorvastatin* (Atorvastatin*) 40 Mg Tablet, 40 MG PO QHS, #30 TAB 06/01/17 Potassium Chloride* (K-Dur*) 10 Meq Tab.prt.sr, 10 MEQ PO DAILY, TAB 06/01/17 Dutasteride* (Avodart*) 0.5 Mg Capsule, 0.5 MG PO DAILY, CAP 06/01/17 Silver Sulfadiazine* (Silvadene*) 1% - 20 Gm Cream.gm., 1 APPLIC TOP DAILY, #1 TUB 06/01/17 Rivastigmine* Patch (Exelon* Patch) 4.6 Mg/24 Hr Patch.td24, 1 PATCH TD DAILY, PATCH 06/01/17 Tiotropium [place]* (Spiriva*) 18 Mcg Cap.w.dev, 1 CAP INHALATION DAILY, #30 CAP 06/01/17 Aspirin Ec (Aspir 81) 81 Mg Tablet.dr, 81 MG PO DAILY 06/02/12 Allergies Allergies: Coded Allergies: No Known Allergy (Unverified , 06/01/17) PMhx/Soc History of Surgery: No Anesthesia Reaction: No Hx Neurological Disorder: No Hx Respiratory Disorders: No Hx Cardiac Disorders: No Hx Psychiatric Problems: No Hx Miscellaneous Medical Probl: No Hx Alcohol Use: Yes Hx Substance Use: No Hx Tobacco Use: Yes Smoking Status: Current some day smoker Physical Exam Vitals Vital Signs Date Time Temp Pulse Resp B/P Pulse Ox O2 Delivery O2 Flow Rate FiO2 08/21/17 08:27 97.5 84 17 173/78 98 Physical Exam Const: NAD Head: Atraumatic Eyes: Normal Conjunctiva ENT: Normal External Ears, Nose and Mouth. Neck: Full range of motion..~ No meningismus. Resp: Clear to auscultation bilaterally Cardio: Regular rate and rhythm, no murmurs Skin: evidence of shingles right arm with scabbing Ext: right arm with ecchymosis along medial aspect of humerus and bicep to assess range of motion secondary to pain. Full active range of motion at elbow. Pulses 2+. Distal neurovascularly intact. Neur: Awake and alert Psych: Normal Mood and Affect Results 24 hrs Current Medications Medications (Trade) Dose Ordered Sig/Kim Route PRN Reason Start Time Stop Time Status Last Admin Dose Admin Acetaminophen (Tylenol Tab) 500 mg ONCE STAT PO 08/21/17 09:20 08/21/17 09:21 DC 08/21/17 09:59 DIAGNOSTIC IMAGING REPORT Patient: JUAN CALIXTO : 1930 Age: 86 Sex: M MR #: [id number] DOS: 08/21/17 0000 Ordering MD: SHALA SCHULTZ PA-C Location: [facility] Room/Bed: PROCEDURE: XR Right Humerus. CLINICAL INDICATION: Right arm pain. TECHNIQUE: AP and lateral views of the right humerus were performed. COMPARISON: None. FINDINGS: There is an acute transverse mildly impacted and angulated fracture of the surgical neck of the right humerus. There is no other fracture and there is no dislocation. The soft tissues are normal. Articular surfaces are intact. There is no lytic or blastic lesion. There is no radiopaque foreign body. IMPRESSION: 1. Acute fracture of the surgical neck of the right humerus. 2. Otherwise unremarkable images of the right humerus. RPTAT: QQ .Scott Alvarado MD, MD Date Time Electronically viewed and signed by .Scott Alvarado MD, MD on 08/21/2017 09:46 .R/ CC: SHALA SCHULTZ PA-C AGNOSTIC IMAGING REPORT Patient: JUAN CALIXTO : 1930 Age: 86 Sex: M MR #: [id number] DOS: 08/21/17 0000 Ordering MD: SHALA SCHULTZ PA-C Location: [facility] Room/Bed: PROCEDURE: XR Right Shoulder. CLINICAL INDICATION: Trauma. Right shoulder pain. TECHNIQUE: Three views. Frontal internal rotation, frontal external rotation , and scapular Y-view. COMPARISON: No prior study is available for comparison. FINDINGS: There is an acute transverse fracture through the surgical neck of the humerus with mild impaction and angulation. There is no other fracture and there is no dislocation. The soft tissues are normal. Articular surfaces are intact. There is no lytic or blastic lesion. There is no radiopaque foreign body. IMPRESSION: 1. Acute transverse fracture through the surgical neck of the humerus with mild impaction and angulation. 2. Otherwise unremarkable images of the right shoulder. RPTAT: QQ .Scott Alvarado MD, MD Date Time Electronically viewed and signed by .Scott Alvarado MD, on 08/21/2017 09:45 .R/ CC: SHALA SCHULTZ PA-C Procedures/MDM 86-year-old male who presents the emergency department today with his son for concerns of right arm pain and bruising that the son noticed today. Son indicates that he did witness the fall. I obtained all this information from an clock repairer. Son indicated that the father did not hit his head and denies any loss of consciousness. Do not feel he requires a head CT scan at this time. Low suspicion for acute hemorrhage, mass, abscess, meningitis. On physical exam patient does have evidence of bruising along the medial aspect of his humerus and therefore did obtain images. Images of the right shoulder and humerus show an acute fracture of the surgical neck that is mildly impacted and angulated. There is no other fracture or dislocation. Soft tissues are normal. Also has evidence of healing shingles and upon review of patient's medical records he was diagnosed here on August 14, 2017 and was given antivirals and steroids and gabapentin at that time. Symptoms at this time is consistent with humerus fracture secondary to mechanical fall. I notified my supervising physician Dr. Childress commended that the patient be placed in a sling. He does not feel that the patient would benefit from a splint given the location of the fracture that it is too high up. I have explained all of this to the son via the clock repairer. Father was given Tylenol here in the emergency department. He will be given a prescription for home. He was instructed to follow up today with labor specialist and was given referral information. At this time the patient is stable for discharge and outpatient management. Patient should follow up with their PCP in the next 1-2 days. They may return to the emergency department sooner for any persistent or worsening of symptoms. Son understood and agreed with the plan. Departure Diagnosis: Primary Impression: Humerus fracture Encounter type: initial encounter Humerus Location: surgical neck Fracture type: closed Fracture morphology: unspecified fracture morphology Fracture alignment: nondisplaced Laterality: right Qualified Code: S42.214A - Closed nondisplaced fracture of surgical neck of right humerus, unspecified fracture morphology, initial encounter Additional Impression: Fall Encounter type: initial encounter Qualified Code: W19.XXXA - Fall, initial encounter Condition: SHALA De La Fuente PA-C Aug 21, 2017 09:50
[2017-08-21] MEDS ORDERED: ACET500C5 PO (10:32)
[2017-08-21 10:45] VITALS: BP 152/78; RESP 18
== END 2017-08-21 10:46 | disposition home or self-care (01) ==
LOC: FTE 08:26
DX: S42.214 Unspecified nondisplaced fracture of surgical neck of right humerus (principal); F17.210 Nicotine dependence, cigarettes, uncomplicated; W01.0XXA Fall on same level from slipping, tripping and stumbling without subsequent striking against object, initial encounter; Y92.9 Unspecified place or not applicable; Z79.82 Long term (current) use of aspirin; Z79.01 Long term (current) use of anticoagulants